=== PATIENT | female | born 1950 | race Caucasian/White ===

== ENCOUNTER 2016-04-26 13:19 | Emergency (ER) | payer MEDICARE, OTHER ==
[~2016-04-26] VITALS: Ht 175.3 cm; Wt 95.0 kg
[~2016-04-26 13:19] MED LIST: AMLO-147 PO; CALC500T12 PO; FURO20TA3 PO; GLIP-95 PO; HYDR-3671 PO; MTF1000T PO; SITA100T8 PO; VALS80TA2 PO
[2016-04-26 13:40] VITALS: Ht 175.3 cm; Wt 95.0 kg
[2016-04-26 20:03] LABS: HEMATOCRIT 35.1 % (37.0-47.0); HEMOGLOBIN 11.5 g/dl (12.0-16.0); MEAN CORPUSCULAR HEMOGLOBIN 29.5 pg (29.0-33.0); MEAN CORPUSCULAR HGB CONC 32.7 g/dl (32.0-37.0); MEAN CORPUSCULAR VOLUME 90.3 fl (82.0-101.0); PLATELET COUNT 265 10^3/UL (140-440); RED BLOOD COUNT 3.89 10^6/ul (4.20-5.40); RED CELL DISTRIBUTION WIDTH 15.2 % (11.5-14.5); UNCORRECTED WBC 7.3 10^3/ul (4.8-10.8); WHITE BLOOD COUNT 7.3 10^3/ul (4.8-10.8)
[2016-04-26 20:07] LABS: SUSPECT 1
[2016-04-26 20:08] LABS: CONDITION 1; LH ANALYZER COMMENTS 1
[2016-04-26 20:11] LABS: POTASSIUM 4.3 mmol/L (3.5-5.1)
[2016-04-26 20:13] LABS: INR 1.25; PARTIAL THROMBOPLASTIN TIME 28.1 Sec (25.0-35.0); PROTIME 15.8 Sec (12.2-14.2); PT RATIO 1.2
[2016-04-26 20:14] LABS: CREATININE 1.29 mg/dl (0.44-1.00)
[2016-04-26 20:15] LABS: CALCIUM 10.1 mg/dl (8.4-10.2)
--- NOTE | 2016-04-26 20:15 | RADRPT ---
PROCEDURE: XR Chest. CLINICAL INDICATION: Chest pain. TECHNIQUE: AP portable views of the chest were obtained. COMPARISON: All multiple prior exams including most recent 03/19/2016. FINDINGS: There is moderate cardiomegaly. There is a pacemaker in place with leads in the region of the right atrium right ventricle. There is mild atherosclerotic calcification of the thoracic aorta. There is mild prominence of the central pulmonary vasculature. The peripheral vascular markings are disti nct. The lungs are clear without consolidation, mass or nodule. No signs of pleural fluid or pneumot horax are seen. The osseous structures and soft tissues are unremarkable. IMPRESSION: 1. No evidence for active cardiopulmonary disease. 2. Moderate cardiomegaly with central pulmonary vascular congestion. No evidence of interstitial p ulmonary edema. 3. Mild atherosclerotic calcification of the thoracic aorta. RPTAT: HGAS .Emre Link MD, Date Time Electronically viewed and signed by .Emre Link MD, on 04/26/2016 20:14 .S/
[2016-04-26 20:27] LABS: TROPONIN-I 0.03 ng/ml (0.00-0.12)
[2016-04-26 20:28] LABS: ADD UMIC YES; URINE BILIRUBIN (Dip) 1+ (NEGATIVE); URINE BLOOD (Dip) NEGATIVE (NEGATIVE); URINE COLOR YELLOW (YELLOW); URINE KETONES (Dip) TRACE (NEGATIVE); URINE LEUKOCYTE ESTERASE (Dip) NEGATIVE (NEGATIVE); URINE NITRITE (Dip) NEGATIVE (NEGATIVE); URINE TOTAL PROTEIN (Dip) 2+ (NEGATIVE); URINE UROBILINOGEN (Dip) 0.2 E.U./dL (0.1-1.0)
[2016-04-26] MEDS ORDERED: FUROSEMIDE 40 MG INJ IV ONE (20:30)
[2016-04-26] MEDS ORDERED: INSULIN REGULAR, HUMAN 100 UNIT/1 ML 3ML VIAL SC ONE (20:30)
--- NOTE | 2016-04-26 20:35 | ERD ---
ER Documentation Chief Complaint Date/Time DATE: 04/26/16 TIME: 20:30 Chief Complaint HAS WEAKNESS AND DECREASED APPPETITE HAS ST HPI This is a 65-year-old female with a history of hypertension, CHF, pacemaker who presents to the emergency room for generalized weakness and decreased appetite for the past 3 days. The patient does state that although she has been able to do today's drink grape juice. Patient came to the ER for evaluation for her weakness. She denies any chest pain, palpitations, shortness of breath, nausea or vomiting at this time ROS All systems reviewed and are negative except as per history of present illness. Medications Home Meds Active Scripts Valsartan* (Diovan*) 80 Mg Tablet, 120 MG PO QHS for 30 Days, TAB 3 Refills take 1 and 1/2 tab po qhs Prov:TRACEY NEAL 03/21/16 Amlodipine Besylate* (Amlodipine Besylate*) 10 Mg Tablet, 10 MG PO DAILY for 30 Days, TAB 3 Refills Prov:TRACEY NEAL 03/21/16 Reported Medications Hydralazine Hcl* (Hydralazine Hcl*) 25 Mg Tab, 25 MG PO BID, #120 TAB 03/19/16 Furosemide* (Furosemide*) 20 Mg Tablet, 20 MG PO DAILY, #60 TAB 03/19/16 Sitagliptin* (Januvia*) 100 Mg Tablet, 100 MG PO DAILY, #30 TAB 10/13/15 Calcium Carbonate* (Oysco-500*) 1 Tab Tablet, 1 TAB PO BID, TAB 10/13/15 Metformin* (Glucophage*) 1,000 Mg Tablet, 1000 MG PO BID, #60 TAB 10/13/15 Glipizide* (Glipizide*) 10 Mg Tablet, 10 MG PO BID, TAB 10/13/15 Allergies Allergies: Coded Allergies: sulfamethoxazole (Verified Allergy, Mild, DIARRHEA,STOMACH PAIN, 03/19/16) trimethoprim (Verified Allergy, Mild, DIARRHEA,STOMACH PAIN, 03/19/16) PMhx/Soc History of Surgery: Yes (pls see EMR) Anesthesia Reaction: No Hx Neurological Disorder: No Hx Respiratory Disorders: No Hx Cardiac Disorders: Yes Hx Psychiatric Problems: No Hx Miscellaneous Medical Probl: Yes (pls see EMR) Hx Alcohol Use: No Hx Substance Use: No Hx Tobacco Use: No Smoking Status: Never smoker Physical Exam Vitals Vital Signs Date Time Temp Pulse Resp B/P Pulse Ox O2 Delivery O2 Flow Rate FiO2 04/26/16 19:59 Nasal Cannula 2 04/26/16 13:40 99.0 82 18 139/84 96 Physical Exam INITIAL VITAL SIGNS: Reviewed by me GENERAL: The patient is well developed and appropriate for usual state of health in no apparent distress HEENT: Pupils equal, round, and reactive to light. EOMI. There is no scleral icterus. NECK: C-spine is soft and supple, there is no meningismus. There is no cervical lymphadenopathy. LUNGS: Clear to auscultation bilaterally. There are no rales, wheezes or rhonchi. HEART: Pacemaker in left anterior chest wall, regular rate and rhythm, no murmurs, clicks, rubs or gallops. ABDOMEN: Soft, non-tender, non-distended. There are bowel sounds in all four quadrants. No rebound or guarding. EXTREMITIES: 1+ pitting edema in the bilateral lower extremities. NEUROLOGICAL: The patient moves all four extremities with 5/5 strength. Cranial nerves II - XII are intact. Normal gait. Alert and oriented SKIN: There is no apparent rash or petechiae. HEME/LYMPHATIC: There is no evidence of excessive bruising or lymphedema. PSYCHIATRIC: The patient does not appear anxious or depressed. Result Diagram: 04/26/16194704/26/161947 Results 24 hrs Laboratory Tests Test 04/26/16 13:51 04/26/16 19:48 Bedside Glucose 345mg/dL Activated Partial Thromboplast Time 28.1Sec Anion Gap 16 B-Type Natriuretic Peptide 77456BJ/ML Blood Morphology Comment Blood Urea Nitrogen 23mg/dl Calcium Level 10.1mg/dl Carbon Dioxide Level 28mmol/L Chloride Level 98mmol/L Creatinine 1.29mg/dl Glucose Level 254mg/dl Hematocrit 35.1% Hemoglobin 11.5g/dl INR International Normalized Ratio 1.25 Mean Corpuscular Hemoglobin 29.5pg Mean Corpuscular Hemoglobin Concent 32.7g/dl Mean Corpuscular Volume 90.3fl Mean Platelet Volume 10.0fl Platelet Count 57292^3/UL Potassium Level 4.3mmol/L Prothrombin Time 15.8Sec Prothrombin Time Ratio 1.2 Red Blood Count 3.8910^6/ul Red Cell Distribution Width 15.2% Sodium Level 138mmol/L Troponin I 0.030ng/ml White Blood Count 7.310^3/ul Current Medications Medications (Trade) Dose Ordered Sig/Jaspal Route PRN Reason Start Time Stop Time Status Last Admin Dose Admin Insulin Human Regular (Humulin R) 12 unit ONCE ONCE SC 04/26/16 20:30 04/26/16 20:30 DC Furosemide (Lasix) 40 mg ONCE ONCE IV 04/26/16 20:30 04/26/16 20:31 Procedures/MDM EKG: Rate/Rhythm: Paced QRS, ST, T-waves: [No changes consistent w/ acute ischemia] Impression: paced rhythm Chest X-ray 1V Interpreted by me: Soft Tissue: No acute abnormalities Bones: No acute abnormalities Mediastinum/Cardiac Silhouette/Lungs: Cardiomegaly with pulmonary vascular congestion This 65-year-old female presents to the ER for evaluation of generalized weakness. This patient states that she is not having any chest pain or palpitations, however she does have a history of hypertension, CHF with pacemaker placement. Lab work was obtained which does show an elevation in her brain natruretic peptide, this patient also has a slightly elevated glucose level which is likely secondary to the juice she has been drinking. She appears well-hydrated at this time, she did have 1+ pitting edema in the bilateral lower extremities and given her history of congestive heart failure with an elevated brain natruretic peptide this patient was given 40 mg of IV Lasix. She is hemodynamically stable at this time, not hypoxic, and has no respiratory distress. Her troponin is negative, and her EKG is nonischemic at this time. This patient is okay with plan of care being discharged home. She will be discharged home with a prescription for tramadol for back pain, and Lasix for acute CHF exacerbation. Departure Diagnosis: Primary Impression: CHF exacerbation Additional Impressions: Generalized weakness Chronic back pain Normocytic anemia Elevated brain natriuretic peptide (BNP) level Hyperglycemia Condition: Stable MAYA HAWLEY DO Apr 26, 2016 20:35
[2016-04-26] MEDS ORDERED: ULT50 PO (20:36)
[2016-04-26] MEDS ORDERED: FURO20TA PO (20:36)
[2016-04-26 20:42] LABS: BASOPHIL # 0.1 10^3/ul (0.0-0.1); EOSINOPHILS # 0.2 10^3/ul (0.0-0.5); LYMPHOCYTES # 0.7 10^3/ul (0.8-2.9); MONOCYTE # 0.5 10^3/ul (0.3-0.9); NEUTROPHIL # 5.8 10^3/ul (1.6-7.5)
[2016-04-26 20:47] LABS: URINE RBCS 0-2 /HPF (0)
[2016-04-26 20:48] LABS: BACTERIA,URINE FEW; ICTOTEST NEGATIVE (NEGATIVE); SQUAMOUS EPITHELIAL CELL,UR FEW
[2016-04-26 21:22] VITALS: BP 140/71; PULSE 79; RESP 20; TEMP 98.4
== END 2016-04-26 21:44 | disposition home or self-care (01) ==
LOC: E/R 13:19
DX: I50.9 Heart failure, unspecified (principal); R40.2252 Coma scale, best verbal response, oriented, at arrival to emergency department; M54.9 Dorsalgia, unspecified; D64.9 Anemia, unspecified; R73.9 Hyperglycemia, unspecified; I10 Essential (primary) hypertension; R40.2362 Coma scale, best motor response, obeys commands, at arrival to emergency department; R40.2142 Coma scale, eyes open, spontaneous, at arrival to emergency department; Z95.0 Presence of cardiac pacemaker; Z79.84 Long term (current) use of oral hypoglycemic drugs
CPT/HCPCS: 36415; 71010; 80048; 81001; 81003; 82962; 83880; 84484; 85025; 85610; 85730; 96374; 99285; J1940; 93005

== ENCOUNTER 2016-05-09 09:41 | Inpatient (IN) | payer OTHER, MEDICARE ==
[~2016-05-09] VITALS: Ht 160 cm; Wt 91.8 kg
[~2016-05-09 09:41] MED LIST changes: +FURO20TA PO; +ULT50 PO
--- NOTE | 2016-05-09 12:57 | ERA ---
ER Documentation Chief Complaint Date/Time DATE: 05/09/16 TIME: 12:56 Chief Complaint COUGH X1 MONTH, DIZZINESS, BODYACHES, WEAKNESS X2 MONTHS, NO JACKSON HPI The patient is a 47-year-old male, presenting to the ER because of acute low back pain 6 years ago after lifting heavy glass. The pain is 5-10, worse with movement. He denies fecal, urinary incontinence, fever, chills, neck pain, chest pain, abdominal pain, vomiting, dysuria. He does not smoke, drinks socially Past medical history: Hypertension Past surgical history: None ROS All systems reviewed and are negative except as per history of present illness. Medications Home Meds Active Scripts Tramadol HCl (Tramadol HCl) 50 Mg Tablet, 50 MG PO Q8, #12 TAB Prov:MAYA HAWLEY DO 04/26/16 Furosemide* (Lasix*) 20 Mg Tablet, 20 MG PO DAILY, #5 TAB Prov:MAYA HAWLEY DO 04/26/16 Valsartan* (Diovan*) 80 Mg Tablet, 120 MG PO QHS for 30 Days, TAB 3 Refills take 1 and 1/2 tab po qhs Prov:VALTRACEY 03/21/16 Amlodipine Besylate* (Amlodipine Besylate*) 10 Mg Tablet, 10 MG PO DAILY for 30 Days, TAB 3 Refills Prov:VALTRACEY 03/21/16 Reported Medications Hydralazine Hcl* (Hydralazine Hcl*) 25 Mg Tab, 25 MG PO BID, #120 TAB 03/19/16 Furosemide* (Furosemide*) 20 Mg Tablet, 20 MG PO DAILY, #60 TAB 03/19/16 Sitagliptin* (Januvia*) 100 Mg Tablet, 100 MG PO DAILY, #30 TAB 10/13/15 Calcium Carbonate* (Oysco-500*) 1 Tab Tablet, 1 TAB PO BID, TAB 10/13/15 Metformin* (Glucophage*) 1,000 Mg Tablet, 1000 MG PO BID, #60 TAB 10/13/15 Glipizide* (Glipizide*) 10 Mg Tablet, 10 MG PO BID, TAB 10/13/15 Allergies Allergies: Coded Allergies: sulfamethoxazole (Verified Allergy, Mild, DIARRHEA,STOMACH PAIN, 03/19/16) trimethoprim (Verified Allergy, Mild, DIARRHEA,STOMACH PAIN, 03/19/16) PMhx/Soc History of Surgery: Yes (pls see EMR) Anesthesia Reaction: No Hx Neurological Disorder: No Hx Respiratory Disorders: No Hx Cardiac Disorders: Yes Hx Psychiatric Problems: No Hx Miscellaneous Medical Probl: Yes (pls see EMR) Hx Alcohol Use: No Hx Substance Use: No Hx Tobacco Use: No Physical Exam Vitals Vital Signs Date Time Temp Pulse Resp B/P Pulse Ox O2 Delivery O2 Flow Rate FiO2 05/09/16 13:25 77 20 97 21 05/09/16 09:48 97.8 78 17 119/77 99 Physical Exam Const: No acute distress. Head: Atraumatic. Eyes: Normal Conjunctiva. ENT: Normal External Ears, Nose and Mouth. Neck: Full range of motion. No meningismus. Resp: Clear to auscultation bilaterally. Cardio: Regular rate and rhythm, no murmurs. Abd: Soft, non distended, normal bowel sounds, non tender. Skin: No petechiae or rashes. Back: No midline tenderness, my left sided lumbar tenderness, no crepitus Ext: No cyanosis, or edema. Neur: Awake and alert. No focal deficit Psych: Normal Mood and Affect. Results 24 hrs Current Medications Medications (Trade) Dose Ordered Sig/Jaspal Route PRN Reason Start Time Stop Time Status Last Admin Dose Admin Levalbuterol (Xopenex Neb) 1.25 mg ONCE ONCE HHN 05/09/16 13:30 05/09/16 13:31 05/09/16 13:22 Procedures/MDM MEDICAL MAKING DECISION: The patient is 47-year-old male, presenting with acute lumbar strain. He was treated with Toradol 60 mg IM with good response. The differential diagnoses considered include but are not limited to caudal equina syndrome, spinal abscess, DJD, diskitis, lumbar radiculopathy. Departure Diagnosis: Primary Impression: Acute back pain Condition: Good Comments He was discharged with Eric Tao Soma I discussed the findings with the patient. I advised the patient to follow-up with the primary physician in about 1-2 days, sooner if needed and return if any concern. JORGE LUIS SALEH MD May 09, 2016 12:57
--- NOTE | 2016-05-09 13:23 | RADRPT ---
PROCEDURE: Chest Radiograph. CLINICAL INDICATION: Shortness of breath TECHNIQUE: Single frontal chest radiograph. COMPARISON: Chest radiograph 04/26/2016 FINDINGS: The patient is rotated. Heart size is poorly evaluated. A left chest wall implantable pacer is in place. There is mild central vascular congestion. No infiltrate or effusion is seen. The bones are intact. IMPRESSION: 1. Mild cardiomegaly and central vascular congestion. 2. Atherosclerotic vascular disease. RPTAT: KK .Torres Michaels MD, Date Time Electronically viewed and signed by .Torres Michaels MD, on 05/09/2016 13:22 .B/
[2016-05-09] MEDS ORDERED: LEVALBUTEROL (NEB) 1.25 MG/0.5 ML AMP HHN ONE (13:30)
[2016-05-09 13:50] LABS: BASOPHILS % 0.3 % (0.0-2.0); EOSINOPHILS # 0.1 10^3/ul (0.0-0.5); EOSINOPHILS % 0.6 % (0.0-7.0); HEMATOCRIT 36.7 % (37.0-47.0); HEMOGLOBIN 11.8 g/dl (12.0-16.0); LYMPHOCYTES # 1.5 10^3/ul (0.8-2.9); LYMPHOCYTES % 17.2 % (15.0-51.0); MEAN CORPUSCULAR HEMOGLOBIN 28.8 pg (29.0-33.0); MEAN CORPUSCULAR VOLUME 90.1 fl (82.0-101.0); MEAN PLATELET VOLUME 9.2 fl (7.4-10.4); MONOCYTE # 0.7 10^3/ul (0.3-0.9); MONOCYTES % 7.6 % (0.0-11.0); NEUTROPHIL # 6.5 10^3/ul (1.6-7.5); NEUTROPHILS % 74.3 % (39.0-77.0); PLATELET COUNT 281 10^3/UL (140-440); RED BLOOD COUNT 4.07 10^6/ul (4.20-5.40); UNCORRECTED WBC 8.8 10^3/ul (4.8-10.8); WHITE BLOOD COUNT 8.8 10^3/ul (4.8-10.8)
[2016-05-09 13:58] LABS: POTASSIUM 4.6 mmol/L (3.5-5.1)
[2016-05-09 14:00] LABS: ALBUMIN/GLOBULIN RATIO 1.25; BILIRUBIN,INDIRECT 0.6 mg/dl (0-1.1); BILIRUBIN,TOTAL 0.6 mg/dl (0.2-1.3); CONDITION 1; CREATININE 1.21 mg/dl (0.44-1.00); LH ANALYZER COMMENTS 1; TOTAL PROTEIN 7.2 g/dl (6.1-8.1)
[2016-05-09 14:01] LABS: CALCIUM 9.8 mg/dl (8.4-10.2)
[2016-05-09] MEDS ORDERED: FUROSEMIDE 40 MG INJ IV ONE (14:30)
--- NOTE | 2016-05-09 15:39 | ERA ---
ER Documentation Chief Complaint Date/Time DATE: 05/09/16 TIME: 15:37 Chief Complaint COUGH X1 MONTH, DIZZINESS, BODYACHES, WEAKNESS X2 MONTHS, NO JACKSON HPI The patient is a 65-year-old female, presenting to the ER because of intermittent cough, nasal congestion, dizziness, general body pain for more than a month and complains of generalized weakness for the last 2 weeks. She was seen in the ER about 2 weeks ago and treated with Lasix for acute CHF exacerbation and discharged. She has not gotten any better. She complains of dyspnea on exertion, denies chest pain, diaphoresis, complains of chronic and vague abdominal pain, denied dysuria, diarrhea. She does not smoke, drink Past medical history: Hypertension, diabetes mellitus,, dyslipidemia, history of CHF, chronic kidney disease, cardiomyopathy Past surgical history: Hysterectomy, AICD ROS All systems reviewed and are negative except as per history of present illness. Medications Home Meds Active Scripts Valsartan* (Diovan*) 80 Mg Tablet, 120 MG PO QHS for 30 Days, TAB 3 Refills take 1 and 1/2 tab po qhs Prov:TRACEY NEAL 03/21/16 Amlodipine Besylate* (Amlodipine Besylate*) 10 Mg Tablet, 10 MG PO DAILY for 30 Days, TAB 3 Refills Prov:TRACEY NEAL 03/21/16 Reported Medications Hydralazine Hcl* (Hydralazine Hcl*) 25 Mg Tab, 25 MG PO TID, #120 TAB 03/19/16 Furosemide* (Furosemide*) 20 Mg Tablet, 20 MG PO DAILY, #60 TAB 03/19/16 Sitagliptin* (Januvia*) 100 Mg Tablet, 100 MG PO DAILY, #30 TAB 10/13/15 Calcium Carbonate* (Oysco-500*) 1 Tab Tablet, 1 TAB PO BID, TAB 10/13/15 Metformin* (Glucophage*) 1,000 Mg Tablet, 1000 MG PO BID, #60 TAB 10/13/15 Glipizide* (Glipizide*) 10 Mg Tablet, 10 MG PO BID, TAB 10/13/15 Discontinued Scripts Tramadol HCl (Tramadol HCl) 50 Mg Tablet, 50 MG PO Q8, #12 TAB Prov:MAYA HAWLEY DO 04/26/16 Furosemide* (Lasix*) 20 Mg Tablet, 20 MG PO DAILY, #5 TAB Prov:MAYA HAWLEY DO 04/26/16 Allergies Allergies: Coded Allergies: sulfamethoxazole (Verified Allergy, Mild, DIARRHEA,STOMACH PAIN, 05/09/16) trimethoprim (Verified Allergy, Mild, DIARRHEA,STOMACH PAIN, 05/09/16) PMhx/Soc History of Surgery: Yes (pls see EMR) Anesthesia Reaction: No Hx Neurological Disorder: No Hx Respiratory Disorders: No Hx Cardiac Disorders: Yes Hx Psychiatric Problems: No Hx Miscellaneous Medical Probl: Yes (pls see EMR) Hx Alcohol Use: No Hx Substance Use: No Hx Tobacco Use: No Physical Exam Vitals Vital Signs Date Time Temp Pulse Resp B/P Pulse Ox O2 Delivery O2 Flow Rate FiO2 05/09/16 13:25 77 20 97 21 05/09/16 09:48 97.8 78 17 119/77 99 Physical Exam Const: No acute distress. Head: Atraumatic. Eyes: Normal Conjunctiva. ENT: Normal External Ears, Nose and Mouth. Neck: Full range of motion. No meningismus. Resp: Mild bilateral expiratory wheezes Cardio: Regular rate and rhythm, no murmurs. Abd: Soft, non distended, normal bowel sounds, non tender. Skin: No petechiae or rashes. Back: No midline or flank tenderness. Ext: No cyanosis, or edema. Neur: Awake and alert. No focal deficit Psych: Normal Mood and Affect. Result Diagram: 05/09/16 1330 05/09/16 1330 Results 24 hrs Laboratory Tests Test 05/09/16 13:30 Alanine Aminotransferase (ALT/SGPT) 83IU/L Albumin 4.0g/dl Albumin/Globulin Ratio 1.25 Alkaline Phosphatase 145IU/L Anion Gap 19 Aspartate Amino Transf (AST/SGOT) 37IU/L B-Type Natriuretic Peptide 92182KM/ML Basophils # 0.010^3/ul Basophils % 0.3% Blood Morphology Comment Blood Urea Nitrogen 26mg/dl Calcium Level 9.8mg/dl Carbon Dioxide Level 25mmol/L Chloride Level 97mmol/L Creatinine 1.21mg/dl Direct Bilirubin 0.00mg/dl Eosinophils # 0.110^3/ul Eosinophils % 0.6% Globulin 3.20g/dl Glucose Level 225mg/dl Hematocrit 36.7% Hemoglobin 11.8g/dl Indirect Bilirubin 0.6mg/dl Lipase 162U/L Lymphocytes # 1.510^3/ul Lymphocytes % 17.2% Mean Corpuscular Hemoglobin 28.8pg Mean Corpuscular Hemoglobin Concent 32.0g/dl Mean Corpuscular Volume 90.1fl Mean Platelet Volume 9.2fl Monocytes # 0.710^3/ul Monocytes % 7.6% Neutrophils # 6.510^3/ul Neutrophils % 74.3% Nucleated Red Blood Cells # 0.010^3/ul Nucleated Red Blood Cells % 0.0/100WBC Platelet Count 21882^3/UL Potassium Level 4.6mmol/L Red Blood Count 4.0710^6/ul Red Cell Distribution Width 16.0% Sodium Level 136mmol/L Total Bilirubin 0.6mg/dl Total Protein 7.2g/dl White Blood Count 8.810^3/ul Current Medications Medications (Trade) Dose Ordered Sig/Jaspal Route PRN Reason Start Time Stop Time Status Last Admin Dose Admin Levalbuterol (Xopenex Neb) 1.25 mg ONCE ONCE HHN 05/09/16 13:30 05/09/16 13:31 DC 05/09/16 13:22 Furosemide (Lasix) 40 mg ONCE ONCE IV 05/09/16 14:30 05/09/16 14:31 DC Procedures/MDM EKG: Read by emergency physician Rate/Rhythm: Normal Sinus Rhythm beats per min QRS, ST, T-waves: No ST elevation, no T wave inversion Impression: Abnormal EKG [place] [id number] Radiology Main Line: [phone] DIAGNOSTIC IMAGING REPORT Patient: ART HEATH : 1950 Age: 65 Sex: F MR #: [id number] DOS: 05/09/16 1301 Ordering MD: JORGE LUIS SALEH MD Location: E/R Room/Bed: PROCEDURE: Chest Radiograph. CLINICAL INDICATION: Shortness of breath TECHNIQUE: Single frontal chest radiograph. COMPARISON: Chest radiograph 04/26/2016 FINDINGS: The patient is rotated. Heart size is poorly evaluated. A left chest wall implantable pacer is in place. There is mild central vascular congestion. No infiltrate or effusion is seen. The bones are intact. IMPRESSION: 1. Mild cardiomegaly and central vascular congestion. 2. Atherosclerotic vascular disease. RPTAT: KK .Torres Michaels MD, Date Time Electronically viewed and signed by .Torres Michaels MD, on 2016 13:22 .B/ CC: JORGE LUIS SALEH MD MEDICAL MAKING DECISION: The patient is a 74-year-old female, presenting with acute CHF exacerbation, she was treated with Xopenex 1.25 mg for wheezing and Lasix 40 mg IV for acute CHF with good response. The differential diagnoses considered include but are not limited to asthma, COPD, pneumonia, pulmonary embolus, pleural effusion, congestive heart failure. Departure Diagnosis: Primary Impression: CHF (congestive heart failure) Additional Impressions: Anemia Abnormal LFTs Condition: Stable Comments I discussed the findings with the patient. I discussed the patient with his physician Dr. Evans who was made aware of the lab, the treatment, the patient condition. The patient is admitted to telemetry at 3:45 PM JORGE LUIS SALEH MD May 09, 2016 15:39
[2016-05-09 16:25] LABS: URINE BLOOD (Dip) POC Negative (NEGATIVE)
[2016-05-09] MEDS ORDERED: MAGNESIUM HYDROXIDE 30ML CUP PO PRN (18:30)
[2016-05-09] MEDS ORDERED: HYDROCODONE/APAP (5/325) TAB PO PRN (18:30)
[2016-05-09] MEDS ORDERED: DOCUSATE SODIUM 100 MG CAP PO PRN (18:30)
[2016-05-09] MEDS ORDERED: NACL 0.9% 3 ML SYG IV SCH (18:30)
[2016-05-09] MEDS ORDERED: GLUCOSE GEL 15 GRAM TUBE PO PRN ×2 (19:00)
[2016-05-09] MEDS ORDERED: DEXTROSE 50% 50 ML SYRINGE IV PRN ×2 (19:00)
[2016-05-09] MEDS ORDERED: GLUCOSE GEL 15 GRAM TUBE BUCCAL PRN (19:00)
[2016-05-09] MEDS ORDERED: GLUCAGON 1 MG INJ IM PRN (19:00)
--- NOTE | 2016-05-09 19:05 | QN ---
Documentation Comment [id number] LUCAS SANTIAGO MD May 09, 2016 19:05
[2016-05-09 19:15] LABS: CK-MB 0.7 ng/ml (0.0-2.4)
[2016-05-09 19:18] LABS: TROPONIN-I 0.017 ng/ml (0.00-0.12)
[2016-05-09] MEDS: VALSARTAN 80 MG TAB PO SCH (20:48)
[2016-05-09] MEDS: CALCIUM CARBONATE 1.25 GM TAB PO SCH (20:49)
[2016-05-09] MEDS ORDERED: glipiZIDE 10 MG TAB PO SCH (21:00)
[2016-05-09] MEDS: INSULIN ASPART [NOVOLOG] 3 ML PEN SC SCH (21:03)
[2016-05-10 01:04] LABS: CK-MB 0.7 ng/ml (0.0-2.4)
[2016-05-10 01:07] LABS: TROPONIN-I 0.024 ng/ml (0.00-0.12)
[2016-05-10] MEDS: INSULIN ASPART [NOVOLOG] 3 ML PEN SC SCH ×4 (01:49→20:43)
[2016-05-10] MEDS: ACCUCHECK AT 2AM (Patients on SS coverage) XX SCH (01:52)
[2016-05-10 02:00] VITALS: TEMP 98.6
--- NOTE | 2016-05-10 03:45 | HP ---
DATE OF ADMISSION: 05/09/2016 HISTORY OF PRESENT ILLNESS: The patient is a 65-year-old female with history of CKD, hypertension, diabetes mellitus, history of congestive heart failure, cardiomyopathy with systolic heart dysfuncti on, dyslipidemia. The patient also has a history of atherosclerotic heart disease and history of Le xiscan showing no Lexiscan ST or T-wave changes. The patient's other history includes history of ab normal LFTs in the past. PAST SURGICAL HISTORY: The patient has a history of AICD device placement. ALLERGIES: SULFAMETHOXAZOLE AND TRIMETHOPRIM. SOCIAL HISTORY: Negative. FAMILY HISTORY: Negative. CURRENT MEDICATIONS: The patient is on 1. Amlodipine. 2. Calcium carbonate. 3. Lasix. 4. Glipizide. 5. Hydralazine. 6. Metformin. 7. Januvia. 8. Diovan. REVIEW OF SYSTEMS: HEENT: Unremarkable. RESPIRATORY: Short of breath, cough. CARDIOVASCULAR: No chest pain, palpitation. ABDOMEN: Unremarkable. EXTREMITIES: On an off edema. PHYSICAL EXAMINATION: GENERAL: The patient is an overweight female, awake, alert. VITAL SIGNS: Pulse 83, blood pressure 136/70. HEENT: Atraumatic, normocephalic. Pupils are equal, reactive to light. NECK: Supple. No JVD. CHEST: Show the patient has cardiomegaly with central vascular congestion. ABDOMEN: Bowel sounds present. No palpable mass or hepatosplenomegaly. EXTREMITIES: No cyanosis or clubbing. Edema positive. LABORATORY DATA: WBC 8.8, hematocrit 36.7, platelet count of 281. Sodium 136, potassium 4.6, BUN 2 6, creatinine 1.21, glucose 225. BNP was 13,400, alkaline phosphatase 145. The patient's rhythm on the monitor shows normal sinus rhythm. The patient's EKG . IMPRESSION: 1. Pulmonary edema. 2. Hypertension. 3. Diabetes mellitus. 4. Chronic kidney disease. 5. 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 6. The patient also has possible underlying systemic inflammatory response syndrome. PLAN: Admit this patient to tele. Oxygen. The patient will have aspirin. Continue home medicatio ns, sliding scale diuretics. Cardiology consultation. A 2D echo at the discretion of the cardiolog ist since the patient follows with them as an outpatient. Sliding scale has been enforced. Dictated By: LUCAS RODRIGUEZ/JONY Conf#: [id number] DID#: [id number]
[2016-05-10] MEDS: PANTOPRAZOLE 40 MG INJ IV SCH (05:58)
[2016-05-10 06:24] LABS: ALBUMIN 3.6 g/dl (3.3-4.9)
[2016-05-10 06:25] LABS: POTASSIUM 3.8 mmol/L (3.5-5.1)
[2016-05-10 06:26] LABS: BASOPHILS % 0.4 % (0.0-2.0); EOSINOPHILS # 0.1 10^3/ul (0.0-0.5); EOSINOPHILS % 1.4 % (0.0-7.0); HEMATOCRIT 36.2 % (37.0-47.0); HEMOGLOBIN 11.6 g/dl (12.0-16.0); LYMPHOCYTES # 1.6 10^3/ul (0.8-2.9); LYMPHOCYTES % 22.9 % (15.0-51.0); MEAN CORPUSCULAR HEMOGLOBIN 29.1 pg (29.0-33.0); MEAN PLATELET VOLUME 9.6 fl (7.4-10.4); MONOCYTE # 0.7 10^3/ul (0.3-0.9); MONOCYTES % 9.2 % (0.0-11.0); NEUTROPHIL # 4.7 10^3/ul (1.6-7.5); NEUTROPHILS % 66.1 % (39.0-77.0); PLATELET COUNT 279 10^3/UL (140-440); RED BLOOD COUNT 3.98 10^6/ul (4.20-5.40); RED CELL DISTRIBUTION WIDTH 15.4 % (11.5-14.5); UNCORRECTED WBC 7.2 10^3/ul (4.8-10.8); WHITE BLOOD COUNT 7.2 10^3/ul (4.8-10.8)
[2016-05-10 06:27] LABS: ALBUMIN/GLOBULIN RATIO 1.16; BILIRUBIN,INDIRECT 0.5 mg/dl (0-1.1); BILIRUBIN,TOTAL 0.5 mg/dl (0.2-1.3); CREATININE 1.26 mg/dl (0.44-1.00); TOTAL PROTEIN 6.7 g/dl (6.1-8.1)
[2016-05-10 06:28] LABS: CALCIUM 9.8 mg/dl (8.4-10.2)
[2016-05-10 06:40] LABS: CONDITION 1; LH ANALYZER COMMENTS 1
[2016-05-10] MEDS: FUROSEMIDE 40 MG INJ IV SCH (09:02)
[2016-05-10] MEDS: ASPIRIN 81 MG TAB PO SCH (09:03)
[2016-05-10] MEDS: AMLODIPINE 10 MG TAB PO SCH (09:03)
[2016-05-10] MEDS: CALCIUM CARBONATE 1.25 GM TAB PO SCH ×2 (09:03→20:42)
[2016-05-10] MEDS: metFORMIN 500 MG TAB PO SCH ×2 (09:03→17:30)
[2016-05-10 16:00] VITALS: BP 165/78; PULSE 72; RESP 16; Ht 160 cm; Wt 91.8 kg
--- NOTE | 2016-05-10 16:06 | PN ---
Date/Time of Note Date/Time of Note DATE: 05/10/16 TIME: 16:05 Assessment/Plan VTE Prophylaxis VTE Prophylaxis Intervention: other Lines/Catheters Urinary Cath still in place: No Assessment/Plan Chief Complaint/Hosp Course IMPRESSION: 1. Pulmonary edema. 2. Hypertension. 3. Diabetes mellitus. 4. Chronic kidney disease. 5. 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 6. The patient also has possible underlying systemic inflammatory response syndrome. plan continue same Problems: Subjective 24 Hr Interval Summary Respiratory: shortness of breath (+) Gastrointestinal: no complaints Exam/Review of Systems Vital Signs Vitals Vital Signs Date Time Temp Pulse Resp B/P Pulse Ox O2 Delivery O2 Flow Rate FiO2 05/10/16 15:21 69 18 216/111 95 05/10/16 11:33 Room Air 05/10/16 02:00 98.6 05/09/16 13:25 21 Intake and Output 05/09/16 05/09/16 05/10/16 15:00 23:00 07:00 Output Total 1700 ml 1500 ml Balance -1700 ml -1500 ml Exam Neck: supple Respiratory: diminished breath sounds Cardiovascular: regular rate and rhythm Gastrointestinal: soft Musculoskeletal: nl extremities to inspection Results Result Diagram: 05/10/16 0525 05/10/16 0525 Results 24 hrs Laboratory Tests Test 05/09/16 16:24 05/09/16 18:20 05/09/16 20:45 05/10/16 00:25 Bedside Urine Blood Negative Bedside Urine Glucose (UA) Negative Bedside Urine Ketones (LAB) Negative Bedside Urine Leukocyte Esterase (L Negative Bedside Urine Nitrite (LAB) Negative Bedside Urine Protein (LAB) 1+ H Bedside Urine pH (LAB) 5.5 Creatine Kinase 28 24 Creatine Kinase Index 2.5 2.9 Creatinine Kinase MB (Mass) 0.70 0.70 Troponin I 0.017 0.024 Bedside Glucose 227 H Test 05/10/16 01:45 05/10/16 05:25 05/10/16 13:19 Bedside Glucose 230 H 255 H Alanine Aminotransferase (ALT/SGPT) 69 Albumin 3.6 Albumin/Globulin Ratio 1.16 Alkaline Phosphatase 103 Anion Gap 14 Aspartate Amino Transf (AST/SGOT) 26 Basophils # 0.0 Basophils % 0.4 Blood Morphology Comment Blood Urea Nitrogen 27 H Calcium Level 9.8 Carbon Dioxide Level 28 Chloride Level 102 Creatinine 1.26 H Direct Bilirubin 0.00 Eosinophils # 0.1 Eosinophils % 1.4 Globulin 3.10 Glucose Level 120 # Hematocrit 36.2 L Hemoglobin 11.6 L Hemoglobin A1c 10.8 H Indirect Bilirubin 0.5 Lymphocytes # 1.6 Lymphocytes % 22.9 Mean Corpuscular Hemoglobin 29.1 Mean Corpuscular Hemoglobin Concent 32.0 Mean Corpuscular Volume 91.0 Mean Platelet Volume 9.6 Monocytes # 0.7 Monocytes % 9.2 Neutrophils # 4.7 Neutrophils % 66.1 Nucleated Red Blood Cells # 0.0 Nucleated Red Blood Cells % 0.0 Platelet Count 279 Potassium Level 3.8 Red Blood Count 3.98 L Red Cell Distribution Width 15.4 H Sodium Level 140 Total Bilirubin 0.5 Total Protein 6.7 White Blood Count 7.2 Medications Medications Current Medications Amlodipine Besylate (Norvasc) 10 mg DAILY PO Last administered on 05/10/16 09: 03; Admin Dose 10 MG; Start 05/10/16 at 09:00 Calcium Carbonate (Oyster Shell Calcium) 1.25 gm BID PO Last administered on 09:03; Admin Dose 1.25 GM; Start 05/09/16 at 21:00 Hydralazine HCl (Apresoline) 25 mg TID PO Last administered on 05/10/16 15:21 ; Admin Dose 25 MG; Start 05/09/16 at 21:00 Valsartan (Diovan) 120 mg QHS PO Last administered on 05/09/16 20:48; Admin Dose 120 MG; Start 05/09/16 at 21:00 Acetaminophen/ Hydrocodone Bitart ([place] (5/325)) 1 tab Q6H PRN PO MODERATE PAIN LEVEL 4-6; Start 05/09/16 at 18:30 Docusate Sodium (Colace) 100 mg Q12H PRN PO CONSTIPATION; Start 05/09/16 at 18: 30 Magnesium Hydroxide (Milk Of Mag) 30 ml DAILY PRN PO CONSTIPATION; Start at 18:30 Pantoprazole (Protonix Iv) 40 mg DAILY@06 IV Last administered on 05/10/16 05: 58; Admin Dose 40 MG; Start 05/10/16 at 06:00 Furosemide (Lasix) 40 mg DAILY IV Last administered on 05/10/16 09:02; Admin Dose 40 MG; Start 05/10/16 at 09:00 Miscellaneous Information 1 ea NOTE XX ; Start 05/09/16 at 19:00 Glucose (Glutose) 15 gm Q15M PRN PO DECREASED GLUCOSE; Start 05/09/16 at 19:00 Glucose (Glutose) 22.5 gm Q15M PRN PO DECREASED GLUCOSE; Start 05/09/16 at 19: 00 Dextrose (D50w Syringe) 25 ml Q15M PRN IV DECREASED GLUCOSE; Start 05/09/16 at 19:00 Dextrose (D50w Syringe) 50 ml Q15M PRN IV DECREASED GLUCOSE; Start 05/09/16 at 19:00 Glucagon (Glucagen) 1 mg Q15M PRN IM DECREASED GLUCOSE; Start 05/09/16 at 19:00 Glucose (Glutose) 15 gm Q15M PRN BUCCAL DECREASED GLUCOSE; Start 05/09/16 at 19 :00 Aspirin (Aspirin) 81 mg DAILY PO Last administered on 05/10/16 09:03; Admin Dose 81 MG; Start 05/10/16 at 09:00 Diagnostic Test (Pha) (Accucheck) 1 ea 02 XX Last administered on 05/10/16 01: 52; Admin Dose 1 EA; Start 05/10/16 at 02:00 LUCAS SANTIAGO MD May 10, 2016 16:06
[2016-05-10 17:01] VITALS: PULSE 70
[2016-05-10] MEDS ORDERED: hydrALAzine 20 MG INJ IV PRN (18:30)
[2016-05-10 20:37] VITALS: BP 134/59; PULSE 70; RESP 20
[2016-05-10] MEDS: VALSARTAN 80 MG TAB PO SCH (20:42)
[2016-05-11] VITALS (10 sets, daily range): BP systolic 124–158; BP diastolic 61–72; PULSE 70–74; RESP 17–18
[2016-05-11] MEDS: ACCUCHECK AT 2AM (Patients on SS coverage) XX SCH (02:00)
[2016-05-11] MEDS: PANTOPRAZOLE 40 MG INJ IV SCH (05:53)
[2016-05-11] MEDS: INSULIN ASPART [NOVOLOG] 3 ML PEN SC SCH ×4 (08:41→21:10)
[2016-05-11] MEDS: FUROSEMIDE 40 MG INJ IV SCH (08:42)
[2016-05-11] MEDS: CALCIUM CARBONATE 1.25 GM TAB PO SCH ×2 (08:43→21:08)
[2016-05-11] MEDS: AMLODIPINE 10 MG TAB PO SCH (08:43)
[2016-05-11] MEDS: ASPIRIN 81 MG TAB PO SCH (08:43)
[2016-05-11] MEDS: metFORMIN 500 MG TAB PO SCH ×2 (08:44→17:46)
--- NOTE | 2016-05-11 16:02 | CONS ---
DATE OF ADMISSION: 05/09/2016 DATE OF CONSULTATION: 05/11/2016 REASON FOR CONSULTATION: Shortness of breath and congestive heart failure. REQUESTING PHYSICIAN: LUCAS SANTIAGO MD. HISTORY OF PRESENT ILLNESS: Ms. Arias is a 65-year-old female with a history of cardiomyopathy wit h mildly depressed left ventricular ejection fraction, approximately 40% to 45% by echo in 04/2015 w ith a stress in September 2015 revealing an EF of 43%, but no ischemia, permanent pacemaker, hypertension , diabetes mellitus, recurrent bouts of congestive heart failure who presented with complaints of sh ortness of breath. Upon arrival in the emergency department, temperature 97.8, blood pressure 119/7 7, pulse 78, respirations 17, saturating 99%. The patient's labs, a white count of 8.8, hemoglobin 11.8, platelet count 281. Sodium of 136, potas sium 4.6, creatinine 1.2, BUN 26, AST 37, ALT 83, alkaline phosphatase 145. BNP of 13,400. Troponi n negative. UA negative. The patient underwent a chest x-ray revealing mild cardiomegaly and centr al vascular congestion and atherosclerotic vascular disease. The patient's electrocardiogram is not in the chart for my review at this time. The patient has subsequently been admitted to the floor a nd since admit to the floor, has ongoing shortness breath, denies chest pain. Had a second troponin return negative. The patient has been placed on gentle daily Lasix diuresis and baseline antihyper tensives. PAST MEDICAL HISTORY: As above in HPI with an echo from February 2016 revealing EF of 40%. MEDICATIONS CURRENTLY IN HOSPITAL 1. Norvasc 10 mg daily. 2. Lasix 40 mg IV daily. 3. Aspirin 81 mg daily. 4. Metformin 1000 mg b.i.d. 5. Protonix 40 mg IV daily. 6. Calcium carbonate. 7. Hydralazine 25 mg p.o. t.i.d. 8. Diovan 120 mg at bedtime. 9. Insulin sliding scale. ALLERGIES: BACTRIM. SOCIAL HISTORY: No tobacco, ETOH or illicit drug use. FAMILY HISTORY: Negative for sudden cardiac or early CAD. REVIEW OF SYSTEMS: As above in HPI. CONSTITUTIONAL: No fevers, chills. PULMONARY: Positive for shortness of breath. CARDIOVASCULAR: Heart failure. GASTROINTESTINAL: No vomiting. GENITOURINARY: No hematuria. MUSCULOSKELETAL: Degenerative joint disease. PSYCHIATRIC: No documented psychiatric history. NEUROLOGIC: No documented history of CVA. PHYSICAL EXAMINATION VITAL SIGNS: Temperature 98.2, blood pressure 124/64, pulse 70, respirations 17, saturating 92%. GENERAL: The patient is alert, awake, complaining of shortness of breath. NECK: JVP approximately 9 cm of water. CHEST: Fair movement throughout, mild decreased breath sounds at bases bilaterally. HEART: Regular rate and rhythm, normal S1, S2. A 1/6 systolic murmur, nondisplaced PMI. ABDOMEN: Positive bowel sounds, soft. EXTREMITIES: Trace edema, 1+ pulses bilaterally, posterior tibial. LABORATORIES: As above in HPI with most recent from today, white count 7.2, hemoglobin 11.6, platel et count 279. Sodium 140, potassium 3.8, creatinine of 1.26, BUN 17. IMAGING STUDIES: As above in HPI. No further imaging studies for my review at this time. ECG: No electrocardiograms for my review at this time. IMPRESSION: 1. Congestive heart failure exacerbation, systolic, acute on chronic. Most recent EF of 40% by [facility] in February 2016. 2. Shortness of breath secondary to #1. 3. Hypertension, under reasonable control. 4. Diabetes mellitus. 5. Renal failure. 6. Permanent pacemaker. 7. Anemia. RECOMMENDATIONS: 1. At this time, would maintain patient on telemetry monitoring to follow rhythm and rate control c losely. 2. Complete the patient's rule out for myocardial infarction to ensure the patient's constellation of symptoms are not due to an acute coronary syndrome such as acute myocardial infarction. 3. Continue the patient's Hydralazine, Diovan and Norvasc for control of blood pressure and continu e the patient's aspirin for prophylaxis for cardiovascular events. 6. Continue the patient's gentle Lasix diuresis, following strict I's and O's to grade diuresis, fo llowing creatinine closely. 7. We will follow the patient's pacemaker on telemetry and if there is any sign of dysfunction, we will have the permanent pacemaker interrogated. 8. Check a fasting lipid panel for general risk stratification and initiate lipid-lowering medicati on as necessary. Thank you for allowing me to take part in the care of this patient. I will continue to follow along very closely with you with further recommendations to be made as the patient progresses through her inpatient hospital clinical course. Dictated By: DELFINA EWING/JONY Conf#: [id number] DID#: [id number] CC: LUCAS SANTIAGO MD;*EndCC*
[2016-05-11 19:05] LABS: CK-MB 0.64 ng/ml (0.0-2.4)
[2016-05-11 19:09] LABS: TROPONIN-I 0.013 ng/ml (0.00-0.12)
--- NOTE | 2016-05-11 19:41 | PN ---
Date/Time of Note Date/Time of Note DATE: 05/11/16 TIME: 19:40 Assessment/Plan VTE Prophylaxis VTE Prophylaxis Intervention: other Lines/Catheters IV Catheter Type (from [facility]): Saline Lock Urinary Cath still in place: Yes Reason Cath still needed: other (indicate) Assessment/Plan Chief Complaint/Hosp Course IMPRESSION: 1. Pulmonary edema. 2. Hypertension. 3. Diabetes mellitus. 4. Chronic kidney disease. 5. 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 6. The patient also has possible underlying systemic inflammatory response syndrome. plan continue same cardio consult Problems: Subjective 24 Hr Interval Summary Respiratory: shortness of breath (LESS) Exam/Review of Systems Vital Signs Vitals Vital Signs Date Time Temp Pulse Resp B/P Pulse Ox O2 Delivery O2 Flow Rate FiO2 05/11/16 16:31 70 05/11/16 15:52 98.2 17 143/72 97 05/10/16 16:00 Room Air 05/09/16 13:25 21 Intake and Output 05/10/16 05/10/16 05/11/16 15:00 23:00 07:00 Intake Total 640 ml 400 ml Output Total 500 ml 600 ml Balance 140 ml -200 ml Exam Neck: supple Respiratory: diminished breath sounds Cardiovascular: regular rate and rhythm Gastrointestinal: soft Musculoskeletal: nl extremities to inspection Results Result Diagram: 05/10/16 0525 05/10/16 0525 Results 24 hrs Laboratory Tests Test 05/10/16 20:32 05/10/16 23:01 05/11/16 08:13 05/11/16 12:15 Bedside Glucose 185 167 203 258 H Test 05/11/16 17:24 05/11/16 18:20 Bedside Glucose 220 Creatine Kinase 21 L Creatine Kinase Index 3.0 Creatinine Kinase MB (Mass) 0.64 Troponin I 0.013 Medications Medications Current Medications Amlodipine Besylate (Norvasc) 10 mg DAILY PO Last administered on 05/11/16 08: 43; Admin Dose 10 MG; Start 05/10/16 at 09:00 Calcium Carbonate (Oyster Shell Calcium) 1.25 gm BID PO Last administered on 08:43; Admin Dose 1.25 GM; Start 05/09/16 at 21:00 Hydralazine HCl (Apresoline) 25 mg TID PO Last administered on 05/11/16 13:41 ; Admin Dose 25 MG; Start 05/09/16 at 21:00 Valsartan (Diovan) 120 mg QHS PO Last administered on 05/10/16 20:42; Admin Dose 120 MG; Start 05/09/16 at 21:00 Acetaminophen/ Hydrocodone Bitart ([place] (5/325)) 1 tab Q6H PRN PO MODERATE PAIN LEVEL 4-6; Start 05/09/16 at 18:30 Docusate Sodium (Colace) 100 mg Q12H PRN PO CONSTIPATION; Start 05/09/16 at 18: 30 Magnesium Hydroxide (Milk Of Mag) 30 ml DAILY PRN PO CONSTIPATION; Start at 18:30 Furosemide (Lasix) 40 mg DAILY IV Last administered on 05/11/16 08:42; Admin Dose 40 MG; Start 05/10/16 at 09:00 Miscellaneous Information 1 ea NOTE XX ; Start 05/09/16 at 19:00 Glucose (Glutose) 15 gm Q15M PRN PO DECREASED GLUCOSE; Start 05/09/16 at 19:00 Glucose (Glutose) 22.5 gm Q15M PRN PO DECREASED GLUCOSE; Start 05/09/16 at 19: 00 Dextrose (D50w Syringe) 25 ml Q15M PRN IV DECREASED GLUCOSE; Start 05/09/16 at 19:00 Dextrose (D50w Syringe) 50 ml Q15M PRN IV DECREASED GLUCOSE; Start 05/09/16 at 19:00 Glucagon (Glucagen) 1 mg Q15M PRN IM DECREASED GLUCOSE; Start 05/09/16 at 19:00 Glucose (Glutose) 15 gm Q15M PRN BUCCAL DECREASED GLUCOSE; Start 05/09/16 at 19 :00 Aspirin (Aspirin) 81 mg DAILY PO Last administered on 05/11/16 08:43; Admin Dose 81 MG; Start 05/10/16 at 09:00 Diagnostic Test (Pha) (Accucheck) 1 ea 02 XX Last administered on 05/10/16 01: 52; Admin Dose 1 EA; Start 05/10/16 at 02:00 Hydralazine HCl (Apresoline) 10 mg Q6H PRN IV ELEVATED SYSTOLIC BP; Start 05/10 at 18:30 Pantoprazole (Protonix Tab) 40 mg DAILY@06 PO ; Start 05/12/16 at 06:00 LUCAS SANTIAGO MD May 11, 2016 19:41
[2016-05-11] MEDS: VALSARTAN 80 MG TAB PO SCH (21:08)
--- NOTE | 2016-05-11 21:15 | RADRPT ---
Vent Rate: 72 bpm RR Interval: 0 msec [place] Interval: 154 msec QRS Duration: 136 msec QT Interval: 516 msec QTC Interval: 565 msec P-R-T [place]: 57 - 19 - -80 degrees Normal sinus rhythm Possible Left atrial enlargement Right bundle branch block Marked T wave abnormality, consider inferolateral ischemia Abnormal ECG Electronically Signed By: Fox Sagastume [id number]
[2016-05-12] VITALS (11 sets, daily range): BP systolic 112–142; BP diastolic 56–94; PULSE 71–84; RESP 16–20
[2016-05-12] MEDS: ACCUCHECK AT 2AM (Patients on SS coverage) XX SCH (02:00)
[2016-05-12] MEDS: PANTOPRAZOLE (EC) 40 MG TAB PO SCH (05:33)
[2016-05-12] MEDS: metFORMIN 500 MG TAB PO SCH ×2 (08:32→17:27)
[2016-05-12] MEDS: CALCIUM CARBONATE 1.25 GM TAB PO SCH ×2 (08:32→21:15)
[2016-05-12] MEDS: ASPIRIN 81 MG TAB PO SCH (08:32)
[2016-05-12] MEDS: FUROSEMIDE 40 MG INJ IV SCH (08:33)
[2016-05-12] MEDS: AMLODIPINE 10 MG TAB PO SCH (08:33)
[2016-05-12] MEDS: INSULIN ASPART [NOVOLOG] 3 ML PEN SC SCH ×4 (08:58→21:26)
--- NOTE | 2016-05-12 11:58 | CONS ---
Date/Time of Note Date/Time of Note DATE: 05/12/16 TIME: 11:55 Assessment/Plan Assessment/Plan Chief Complaint/Hosp Course IMPRESSION: 1. Congestive heart failure exacerbation, systolic, acute on chronic. Most recent EF of 40% by echo in February 2016.-negative troponin x 3 2. Shortness of breath secondary to #1. 3. Hypertension, under reasonable control. 4. Diabetes mellitus. 5. Renal failure. 6. Permanent pacemaker. 7. Anemia. 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 -Add BB for treatment of cardiomyopathy Problems: Consultation Date/Type/Reason Admit Date/Time May 09, 2016 at 15:54 Initial Consult Date 05/11/2016 Type of Consultation: Cardiology Reason for Consultation CHF Referring Provider: RIMA SANTIAGO MD Exam/Review of Systems Vital Signs Vitals Vital Signs Date Time Temp Pulse Resp B/P Pulse Ox O2 Delivery O2 Flow Rate FiO2 05/12/16 11:29 97.7 78 20 134/94 92 05/10/16 16:00 Room Air 05/09/16 13:25 21 Intake and Output 05/11/16 05/11/16 05/12/16 15:00 23:00 07:00 Intake Total 650 ml 500 ml Output Total 1800 ml 650 ml Balance -1150 ml -150 ml Exam Review of Systems: CONSTITUTIONAL: No fevers, chills. PULMONARY: mild sob-improving CARDIOVASCULAR: No chest pain/palpitations GASTROINTESTINAL: No nausea/vomiting. GENITOURINARY: No hematuria/dysuria. MUSCULOSKELETAL: No myagias/arthalgias. PSYCHIATRIC: The patient denies depression. NEUROLOGIC: No weakness Constitutional: alert Psych: no complaints Head: normocephalic Neck: jvd (9 cm water), supple Respiratory: diminished breath sounds (at bases/B) Cardiovascular: regular rate and rhythm Gastrointestinal: non-tender, soft Musculoskeletal: muscle tone (normal) Extremities: edema (trace/B) Neurological: other (No focal deficits) Results Result Diagram: 05/10/16 0525 05/10/16 0525 Results 24 hrs Laboratory Tests Test 05/11/16 12:15 05/11/16 17:24 05/11/16 18:20 05/11/16 20:44 Bedside Glucose 258 H 220 191 Creatine Kinase 21 L Creatine Kinase Index 3.0 Creatinine Kinase MB (Mass) 0.64 Troponin I 0.013 Test 05/12/16 08:15 Bedside Glucose 215 Medications Medications Current Medications Amlodipine Besylate (Norvasc) 10 mg DAILY PO Last administered on 05/12/16 08: 33; Admin Dose 10 MG; Start 05/10/16 at 09:00 Calcium Carbonate (Oyster Shell Calcium) 1.25 gm BID PO Last administered on 08:32; Admin Dose 1.25 GM; Start 05/09/16 at 21:00 Hydralazine HCl (Apresoline) 25 mg TID PO Last administered on 05/12/16 08:33 ; Admin Dose 25 MG; Start 05/09/16 at 21:00 Valsartan (Diovan) 120 mg QHS PO Last administered on 05/11/16 21:08; Admin Dose 120 MG; Start 05/09/16 at 21:00 Acetaminophen/ Hydrocodone Bitart ([place] (5/325)) 1 tab Q6H PRN PO MODERATE PAIN LEVEL 4-6; Start 05/09/16 at 18:30 Docusate Sodium (Colace) 100 mg Q12H PRN PO CONSTIPATION; Start 05/09/16 at 18: 30 Magnesium Hydroxide (Milk Of Mag) 30 ml DAILY PRN PO CONSTIPATION Last administered on 05/12/16 08:32; Admin Dose 30 ML; Start 05/09/16 at 18:30 Furosemide (Lasix) 40 mg DAILY IV Last administered on 05/12/16 08:33; Admin Dose 40 MG; Start 05/10/16 at 09:00 Miscellaneous Information 1 ea NOTE XX ; Start 05/09/16 at 19:00 Glucose (Glutose) 15 gm Q15M PRN PO DECREASED GLUCOSE; Start 05/09/16 at 19:00 Glucose (Glutose) 22.5 gm Q15M PRN PO DECREASED GLUCOSE; Start 05/09/16 at 19: 00 Dextrose (D50w Syringe) 25 ml Q15M PRN IV DECREASED GLUCOSE; Start 05/09/16 at 19:00 Dextrose (D50w Syringe) 50 ml Q15M PRN IV DECREASED GLUCOSE; Start 05/09/16 at 19:00 Glucagon (Glucagen) 1 mg Q15M PRN IM DECREASED GLUCOSE; Start 05/09/16 at 19:00 Glucose (Glutose) 15 gm Q15M PRN BUCCAL DECREASED GLUCOSE; Start 05/09/16 at 19 :00 Aspirin (Aspirin) 81 mg DAILY PO Last administered on 05/12/16 08:32; Admin Dose 81 MG; Start 05/10/16 at 09:00 Diagnostic Test (Pha) (Accucheck) 1 ea 02 XX Last administered on 05/10/16 01: 52; Admin Dose 1 EA; Start 05/10/16 at 02:00 Hydralazine HCl (Apresoline) 10 mg Q6H PRN IV ELEVATED SYSTOLIC BP; Start 05/10 at 18:30 Pantoprazole (Protonix Tab) 40 mg DAILY@06 PO Last administered on 05/12/16 05 :33; Admin Dose 40 MG; Start 05/12/16 at 06:00 DELFINA LANDAVERDE May 12, 2016 11:58
[2016-05-12 12:20] LABS: CREATININE 1.25 mg/dl (0.44-1.00)
[2016-05-12 12:21] LABS: CALCIUM 9.9 mg/dl (8.4-10.2); CHOL/HDL RATIO 2.6 RATIO
[2016-05-12 12:26] LABS: CK-MB 0.55 ng/ml (0.0-2.4)
[2016-05-12 12:29] LABS: TROPONIN-I 0.05 ng/ml (0.00-0.12)
--- NOTE | 2016-05-12 14:00 | RADRPT ---
Vent Rate: 77 bpm RR Interval: 0 msec [place] Interval: 152 msec QRS Duration: 132 msec QT Interval: 470 msec QTC Interval: 531 msec P-R-T [place]: 48 - 12 - -80 degrees Normal sinus rhythm Possible Left atrial enlargement Right bundle branch block Marked T wave abnormality, consider inferolateral ischemia Abnormal ECG Electronically Signed By: Fox Sagastume [id number]
--- NOTE | 2016-05-12 19:28 | PN ---
Date/Time of Note Date/Time of Note DATE: 05/12/16 TIME: 19:27 Assessment/Plan VTE Prophylaxis VTE Prophylaxis Intervention: other Lines/Catheters [facility] Saline Lock Urinary Cath still in place: No Assessment/Plan Chief Complaint/Hosp Course IMPRESSION: 1. Pulmonary edema.better 2. Hypertension. 3. Diabetes mellitus. 4. Chronic kidney disease. 5. 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 6. The patient also has possible underlying systemic inflammatory response syndrome. plan continue same cardio f/u pt ot Problems: Subjective 24 Hr Interval Summary Respiratory: no complaints Cardiovascular: no complaints Exam/Review of Systems Vital Signs Vitals Vital Signs Date Time Temp Pulse Resp B/P Pulse Ox O2 Delivery O2 Flow Rate FiO2 05/12/16 16:09 73 05/12/16 15:35 98.4 20 116/56 95 05/10/16 16:00 Room Air 05/09/16 13:25 21 Intake and Output 05/11/16 05/11/16 05/12/16 15:00 23:00 07:00 Intake Total 650 ml 500 ml Output Total 1800 ml 650 ml Balance -1150 ml -150 ml Exam Neck: supple Respiratory: clear to auscultation Cardiovascular: regular rate and rhythm Gastrointestinal: soft Musculoskeletal: nl extremities to inspection Extremities: normal pulses Results Result Diagram: 05/10/16 0525 05/12/16 1120 Results 24 hrs Laboratory Tests Test 05/11/16 20:44 05/12/16 08:15 05/12/16 11:20 05/12/16 12:19 Bedside Glucose 191 215 222 H Anion Gap 17 H Blood Urea Nitrogen 36 H Calcium Level 9.9 Carbon Dioxide Level 28 Chloride Level 94 L Cholesterol Level 128 Cholesterol/HDL Ratio 2.6 Creatine Kinase 26 Creatine Kinase Index 2.1 Creatinine 1.25 H Creatinine Kinase MB (Mass) 0.55 Glucose Level 228 H HDL Cholesterol 48 LDL Cholesterol, Calculated 54 Potassium Level 4.0 Sodium Level 135 Triglycerides Level 128 Troponin I 0.050 Test 05/12/16 17:26 Bedside Glucose 259 H Medications Medications Current Medications Amlodipine Besylate (Norvasc) 10 mg DAILY PO Last administered on 05/12/16t 08: 33; Admin Dose 10 MG; Start 05/10/16 at 09:00 Calcium Carbonate (Oyster Shell Calcium) 1.25 gm BID PO Last administered on 08:32; Admin Dose 1.25 GM; Start 05/09/16 at 21:00 Hydralazine HCl (Apresoline) 25 mg TID PO Last administered on 05/12/16 14:46 ; Admin Dose 25 MG; Start 05/09/16 at 21:00 Valsartan (Diovan) 120 mg QHS PO Last administered on 05/11/16 21:08; Admin Dose 120 MG; Start 05/09/16 at 21:00 Acetaminophen/ Hydrocodone Bitart ([place] (5/325)) 1 tab Q6H PRN PO MODERATE PAIN LEVEL 4-6; Start 05/09/16 at 18:30 Docusate Sodium (Colace) 100 mg Q12H PRN PO CONSTIPATION; Start 05/09/16 at 18: 30 Magnesium Hydroxide (Milk Of Mag) 30 ml DAILY PRN PO CONSTIPATION Last administered on 05/12/16 08:32; Admin Dose 30 ML; Start 05/09/16 at 18:30 Furosemide (Lasix) 40 mg DAILY IV Last administered on 05/12/16 08:33; Admin Dose 40 MG; Start 05/10/16 at 09:00 Miscellaneous Information 1 ea NOTE XX ; Start 05/09/16 at 19:00 Glucose (Glutose) 15 gm Q15M PRN PO DECREASED GLUCOSE; Start 05/09/16 at 19:00 Glucose (Glutose) 22.5 gm Q15M PRN PO DECREASED GLUCOSE; Start 05/09/16 at 19: 00 Dextrose (D50w Syringe) 25 ml Q15M PRN IV DECREASED GLUCOSE; Start 05/09/16 at 19:00 Dextrose (D50w Syringe) 50 ml Q15M PRN IV DECREASED GLUCOSE; Start 05/09/16 at 19:00 Glucagon (Glucagen) 1 mg Q15M PRN IM DECREASED GLUCOSE; Start 05/09/16 at 19:00 Glucose (Glutose) 15 gm Q15M PRN BUCCAL DECREASED GLUCOSE; Start 05/09/16 at 19 :00 Aspirin (Aspirin) 81 mg DAILY PO Last administered on 05/12/16 08:32; Admin Dose 81 MG; Start 05/10/16 at 09:00 Diagnostic Test (Pha) (Accucheck) 1 ea 02 XX Last administered on 05/10/16 01: 52; Admin Dose 1 EA; Start 05/10/16 at 02:00 Hydralazine HCl (Apresoline) 10 mg Q6H PRN IV ELEVATED SYSTOLIC BP; Start 05/10 at 18:30 Pantoprazole (Protonix Tab) 40 mg DAILY@06 PO Last administered on 05/12/16 05 :33; Admin Dose 40 MG; Start 05/12/16 at 06:00 Metoprolol Succinate (Toprol Xl) 25 mg DAILY PO ; Start 05/13/16 at 09:00 LUCAS SANTIAGO MD May 12, 2016 19:28
[2016-05-12] MEDS: VALSARTAN 80 MG TAB PO SCH (21:15)
[2016-05-13] VITALS (10 sets, daily range): BP systolic 117–149; BP diastolic 57–69; PULSE 73–80; RESP 16–18
[2016-05-13] MEDS: ACCUCHECK AT 2AM (Patients on SS coverage) XX SCH (02:00)
[2016-05-13] MEDS: PANTOPRAZOLE (EC) 40 MG TAB PO SCH (05:31)
[2016-05-13] MEDS: INSULIN ASPART [NOVOLOG] 3 ML PEN SC SCH ×3 (08:00→17:56)
[2016-05-13] MEDS: metFORMIN 500 MG TAB PO SCH ×2 (08:25→18:06)
[2016-05-13] MEDS ORDERED: METOPROLOL (XL) 25 MG TAB PO SCH (09:00)
[2016-05-13] MEDS: FUROSEMIDE 40 MG INJ IV SCH (09:37)
[2016-05-13] MEDS: CALCIUM CARBONATE 1.25 GM TAB PO SCH (09:37)
[2016-05-13] MEDS: AMLODIPINE 10 MG TAB PO SCH (09:38)
[2016-05-13] MEDS: ASPIRIN 81 MG TAB PO SCH (09:38)
--- NOTE | 2016-05-13 12:19 | CONS ---
Date/Time of Note Date/Time of Note DATE: 05/13/16 TIME: 12:16 Assessment/Plan Assessment/Plan Chief Complaint/Hosp Course IMPRESSION: 1. Congestive heart failure exacerbation, systolic, acute on chronic. Most recent EF of 40% by echo in February 2016.-negative troponin x 3 2. Shortness of breath secondary to #1. 3. Hypertension, under reasonable control. 4. Diabetes mellitus. 5. Renal failure. 6. Permanent pacemaker. 7. Anemia. Recc: -Tele -Continue asa -Continue norvasc/diovan/BB/hydralazine for treatment of HTN/cardiomyopathy -Continue lasix diuresis and follow business performance advisor/output closely Problems: Consultation Date/Type/Reason Admit Date/Time May 13, 2016 at 08:21 Initial Consult Date 05/11/2016 Type of Consultation: Cardiology Reason for Consultation CHF Referring Provider: LUCAS SANTIAGO MD Exam/Review of Systems Vital Signs Vitals Vital Signs Date Time Temp Pulse Resp B/P Pulse Ox O2 Delivery O2 Flow Rate FiO2 05/13/16 12:02 80 05/13/16 11:36 98.5 18 117/57 96 05/10/16 16:00 Room Air 05/09/16 13:25 21 Intake and Output 05/12/16 05/12/16 05/13/16 15:00 23:00 07:00 Intake Total 850 ml 750 ml Output Total 1200 ml 4 ml Balance -350 ml 746 ml Exam Review of Systems: CONSTITUTIONAL: No fevers, chills. PULMONARY: No sob CARDIOVASCULAR: No chest pain/palpitations GASTROINTESTINAL: No nausea/vomiting. GENITOURINARY: No hematuria/dysuria. MUSCULOSKELETAL: No myagias/arthalgias. PSYCHIATRIC: The patient denies depression. NEUROLOGIC: lethargic Constitutional: other (sleeping) Psych: no complaints Head: normocephalic ENMT: mucosa pink and moist Neck: jvd (9 cm water), supple Respiratory: diminished breath sounds (at bases/B) Cardiovascular: regular rate and rhythm Gastrointestinal: non-tender, soft Musculoskeletal: muscle tone (nbormal) Extremities: edema (none) Neurological: lethargic Results Result Diagram: 05/10/16 0525 05/12/16 1120 Results 24 hrs Laboratory Tests Test 05/12/16 12:19 05/12/16 17:26 05/12/16 21:13 05/13/16 05:30 Bedside Glucose 222 H 259 H 220 248 H Test 05/13/16 08:13 Bedside Glucose 139 Medications Medications Current Medications Amlodipine Besylate (Norvasc) 10 mg DAILY PO Last administered on 05/13/16 09: 38; Admin Dose 10 MG; Start 05/10/16 at 09:00 Calcium Carbonate (Oyster Shell Calcium) 1.25 gm BID PO Last administered on 09:37; Admin Dose 1.25 GM; Start 05/09/16 at 21:00 Hydralazine HCl (Apresoline) 25 mg TID PO Last administered on 05/13/16 09:38 ; Admin Dose 25 MG; Start 05/09/16 at 21:00 Valsartan (Diovan) 120 mg QHS PO Last administered on 05/12/16 21:15; Admin Dose 120 MG; Start 05/09/16 at 21:00 Acetaminophen/ Hydrocodone Bitart ([place] (5/325)) 1 tab Q6H PRN PO MODERATE PAIN LEVEL 4-6; Start 05/09/16 at 18:30 Docusate Sodium (Colace) 100 mg Q12H PRN PO CONSTIPATION; Start 05/09/16 at 18: 30 Magnesium Hydroxide (Milk Of Mag) 30 ml DAILY PRN PO CONSTIPATION Last administered on 05/12/16 08:32; Admin Dose 30 ML; Start 05/09/16 at 18:30 Furosemide (Lasix) 40 mg DAILY IV Last administered on 05/13/16 09:37; Admin Dose 40 MG; Start 05/10/16 at 09:00 Miscellaneous Information 1 ea NOTE XX ; Start 05/09/16 at 19:00 Glucose (Glutose) 15 gm Q15M PRN PO DECREASED GLUCOSE; Start 05/09/16 at 19:00 Glucose (Glutose) 22.5 gm Q15M PRN PO DECREASED GLUCOSE; Start 05/09/16 at 19: 00 Dextrose (D50w Syringe) 25 ml Q15M PRN IV DECREASED GLUCOSE; Start 05/09/16 at 19:00 Dextrose (D50w Syringe) 50 ml Q15M PRN IV DECREASED GLUCOSE; Start 05/09/16 at 19:00 Glucagon (Glucagen) 1 mg Q15M PRN IM DECREASED GLUCOSE; Start 05/09/16 at 19:00 Glucose (Glutose) 15 gm Q15M PRN BUCCAL DECREASED GLUCOSE; Start 05/09/16 at 19 :00 Aspirin (Aspirin) 81 mg DAILY PO Last administered on 05/13/16 09:38; Admin Dose 81 MG; Start 05/10/16 at 09:00 Diagnostic Test (Pha) (Accucheck) 1 ea 02 XX Last administered on 05/10/16 01: 52; Admin Dose 1 EA; Start 05/10/16 at 02:00 Hydralazine HCl (Apresoline) 10 mg Q6H PRN IV ELEVATED SYSTOLIC BP; Start 05/10 at 18:30 Pantoprazole (Protonix Tab) 40 mg DAILY@06 PO Last administered on 05/13/16 05 :31; Admin Dose 40 MG; Start 05/12/16 at 06:00 Metoprolol Succinate (Toprol Xl) 25 mg DAILY PO Last administered on 05/13/16 09:37; Admin Dose 25 MG; Start 05/13/16 at 09:00 DELFINA LANDAVERDE May 13, 2016 12:19
--- NOTE | 2016-05-13 15:19 | PDOCDIS ---
Discharge Instructions CONDITION Patient Condition: Stable HOME CARE INSTRUCTIONS: Special Diet: carb controlled ACTIVITY: Activity Restrictions: Slowly Increase Activity FOLLOW UP/APPOINTMENTS Appointments f/u dr huynh [address] vickers 2 wks LUCAS SANTIAGO MD May 13, 2016 15:19
[2016-05-13] MEDS ORDERED: FURO40TA4 PO (15:24)
[2016-05-13] MEDS ORDERED: METO25TA7 PO (15:24)
--- NOTE | 2016-05-13 15:26 | PDOCDIS ---
Discharge Instructions CONDITION Patient Condition: Stable HOME CARE INSTRUCTIONS: Special Diet: carb controlled ACTIVITY: Activity Restrictions: Slowly Increase Activity FOLLOW UP/APPOINTMENTS Appointments see dr vickers [address] foster santiago 2 wks LUCAS SANTIAGO MD May 13, 2016 15:26
--- NOTE | 2016-05-13 20:09 | PN ---
Date/Time of Note Date/Time of Note DATE: 05/13/16 TIME: 20:08 Assessment/Plan VTE Prophylaxis VTE Prophylaxis Intervention: other Lines/Catheters IV Catheter Type (from [facility], [place]): Saline Lock Urinary Cath still in place: No Assessment/Plan Chief Complaint/Hosp Course IMPRESSION: 1. Pulmonary edema.better 2. Hypertension. 3. Diabetes mellitus. 4. Chronic kidney disease. 5. 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 6. The patient also has possible underlying systemic inflammatory response syndrome. plan continue same home Problems: Subjective 24 Hr Interval Summary Respiratory: no complaints Cardiovascular: no complaints Exam/Review of Systems Vital Signs Vitals Vital Signs Date Time Temp Pulse Resp B/P Pulse Ox O2 Delivery O2 Flow Rate FiO2 05/13/16 16:06 76 05/13/16 15:37 98.6 18 139/62 95 05/10/16 16:00 Room Air 05/09/16 13:25 21 Intake and Output 05/12/16 05/12/16 05/13/16 15:00 23:00 07:00 Intake Total 850 ml 750 ml Output Total 1200 ml 4 ml Balance -350 ml 746 ml Exam Respiratory: clear to auscultation Cardiovascular: regular rate and rhythm Gastrointestinal: soft Results Result Diagram: 05/10/16 0525 05/12/16 1120 Results 24 hrs Laboratory Tests Test 05/12/16 21:13 05/13/16 05:30 05/13/16 08:13 05/13/16 12:04 Bedside Glucose 220 248 H 139 273 H Medications Medications Current Medications Amlodipine Besylate (Norvasc) 10 mg DAILY PO Last administered on 05/13/16 09: 38; Admin Dose 10 MG; Start 05/10/16 at 09:00 Calcium Carbonate (Oyster Shell Calcium) 1.25 gm BID PO Last administered on 09:37; Admin Dose 1.25 GM; Start 05/09/16 at 21:00 Hydralazine HCl (Apresoline) 25 mg TID PO Last administered on 05/13/16 12:22 ; Admin Dose 25 MG; Start 05/09/16 at 21:00 Valsartan (Diovan) 120 mg QHS PO Last administered on 05/12/16 21:15; Admin Dose 120 MG; Start 05/09/16 at 21:00 Acetaminophen/ Hydrocodone Bitart ([place] (5/325)) 1 tab Q6H PRN PO MODERATE PAIN LEVEL 4-6 Last administered on 05/13/16 12:21; Admin Dose 1 TAB; Start at 18:30 Docusate Sodium (Colace) 100 mg Q12H PRN PO CONSTIPATION; Start 05/09/16 at 18: 30 Magnesium Hydroxide (Milk Of Mag) 30 ml DAILY PRN PO CONSTIPATION Last administered on 05/12/16 08:32; Admin Dose 30 ML; Start 05/09/16 at 18:30 Furosemide (Lasix) 40 mg DAILY IV Last administered on 05/13/16 09:37; Admin Dose 40 MG; Start 05/10/16 at 09:00 Miscellaneous Information 1 ea NOTE XX ; Start 05/09/16 at 19:00 Glucose (Glutose) 15 gm Q15M PRN PO DECREASED GLUCOSE; Start 05/09/16 at 19:00 Glucose (Glutose) 22.5 gm Q15M PRN PO DECREASED GLUCOSE; Start 05/09/16 at 19: 00 Dextrose (D50w Syringe) 25 ml Q15M PRN IV DECREASED GLUCOSE; Start 05/09/16 at 19:00 Dextrose (D50w Syringe) 50 ml Q15M PRN IV DECREASED GLUCOSE; Start 05/09/16 at 19:00 Glucagon (Glucagen) 1 mg Q15M PRN IM DECREASED GLUCOSE; Start 05/09/16 at 19:00 Glucose (Glutose) 15 gm Q15M PRN BUCCAL DECREASED GLUCOSE; Start 05/09/16 at 19 :00 Aspirin (Aspirin) 81 mg DAILY PO Last administered on 05/13/16 09:38; Admin Dose 81 MG; Start 05/10/16 at 09:00 Diagnostic Test (Pha) (Accucheck) 1 ea 02 XX Last administered on 05/10/16 01: 52; Admin Dose 1 EA; Start 05/10/16 at 02:00 Hydralazine HCl (Apresoline) 10 mg Q6H PRN IV ELEVATED SYSTOLIC BP; Start 05/10 at 18:30 Pantoprazole (Protonix Tab) 40 mg DAILY@06 PO Last administered on 05/13/16 05 :31; Admin Dose 40 MG; Start 05/12/16 at 06:00 Metoprolol Succinate (Toprol Xl) 25 mg DAILY PO Last administered on 05/13/16t 09:37; Admin Dose 25 MG; Start 05/13/16 at 09:00 LUCAS SANTIAGO MD May 13, 2016 20:09
--- NOTE | 2016-05-15 15:06 | QN ---
Documentation Comment [id number] LUCAS SANTIAGO MD May 15, 2016 15:05
--- NOTE | 2016-05-15 20:19 | DS ---
DATE OF ADMISSION: 05/13/2016 DATE OF DISCHARGE: 05/13/2016 HOSPITAL COURSE: The patient with history of CKD, hypertension, dyslipidemia, pacemaker placement, noncompliance with diabetes mellitus, presented. The patient was seen by Dr. Gavin in consultatio n. His impression: Congestive heart failure exacerbation, ejection fraction 40%, short of breath, hypertension, diabetes mellitus, renal failure, permanent pacemaker, anemia. The patient received d iuretic therapy. The patient's symptoms are resolving and the patient was cleared to be discharged home. DISCHARGE DIAGNOSES: Include: 1. Acute systolic heart failure. 2. The patient also has diabetes mellitus. 3. Hypertension. 4. Pacemaker placement. 5. Anemia. 6. Electrolyte imbalance. 7. Noncompliance. FOLLOWUP: The patient to follow up with PCP and myself, Dr. Santiago, in [address] Pam ramirez in 1 to 2 weeks. DISCHARGE MEDICATIONS: The patient's home medications to continue: 1. Lasix. 2. Metoprolol. 3. Amlodipine. 4. Calcium carbonate. 5. Glipizide. 6. Hydralazine. 7. Metformin. 8. Januvia. DIET: Diabetic, cardiac diet. Dictated By: LUCAS SANTIAGO MD BS/JONY Conf#: [id number] DID#: [id number]
== END 2016-05-13 19:50 | disposition home or self-care (01) | DRG 292 ==
LOC: E/R 09:41 → INTOOBSV 15:54 → MS4 15:54 → OBSVTOIN 05-13 08:21
PROVIDERS: ADMIT Internal Medicine Nephrology; ATTEND Internal Medicine Nephrology
DX: I50.23 Acute on chronic systolic (congestive) heart failure (principal); J81.1 Chronic pulmonary edema; E87.8 Other disorders of electrolyte and fluid balance, not elsewhere classified; E11.9 Type 2 diabetes mellitus without complications; D64.9 Anemia, unspecified; I12.9 Hypertensive chronic kidney disease with stage 1 through stage 4 chronic kidney disease, or unspecified chronic kidney disease; Z95.0 Presence of cardiac pacemaker; Z91.14 Patient's other noncompliance with medication regimen; Z79.82 Long term (current) use of aspirin; Z79.4 Long term (current) use of insulin; N18.9 Chronic kidney disease, unspecified
CPT/HCPCS: 36415; 71010; 80048; 80053; 80061; 81003; 82550; 82553; 82962; 83036; 83690; 83880; 84484; 85025; 93005; 94664; 96372; 96374; 96375; 96376; 97162; G0378; C9113; J1815; J1940

== ENCOUNTER 2016-05-25 02:55 | Inpatient (IN) | payer MEDICARE, OTHER ==
[~2016-05-25] VITALS: Ht 167.6 cm; Wt 90.1 kg
[~2016-05-25 02:55] MED LIST changes: -FURO20TA PO; -FURO20TA3 PO; +FURO40TA4 PO; +METO25TA7 PO; -ULT50 PO
[2016-05-25 05:48] LABS: INR 1.01; PROTIME 13.3 Sec (12.2-14.2)
[2016-05-25 05:49] LABS: PARTIAL THROMBOPLASTIN TIME 26.8 Sec (25.0-35.0)
[2016-05-25 05:57] LABS: ALBUMIN 3.7 g/dl (3.3-4.9); POTASSIUM 5.1 mmol/L (3.5-5.1)
[2016-05-25 05:59] LABS: CREATININE 1.21 mg/dl (0.44-1.00)
[2016-05-25 06:00] LABS: ALBUMIN/GLOBULIN RATIO 1.02; BILIRUBIN,INDIRECT 0.2 mg/dl (0-1.1); BILIRUBIN,TOTAL 0.2 mg/dl (0.2-1.3); CALCIUM 10.3 mg/dl (8.4-10.2); TOTAL PROTEIN 7.3 g/dl (6.1-8.1)
[2016-05-25 06:04] LABS: BASOPHILS % 0.1 % (0.0-2.0); EOSINOPHILS # 0.1 10^3/ul (0.0-0.5); EOSINOPHILS % 1.3 % (0.0-7.0); HEMATOCRIT 35.3 % (37.0-47.0); HEMOGLOBIN 11.4 g/dl (12.0-16.0); LYMPHOCYTES # 1.3 10^3/ul (0.8-2.9); LYMPHOCYTES % 16.8 % (15.0-51.0); MEAN CORPUSCULAR HEMOGLOBIN 28.9 pg (29.0-33.0); MEAN CORPUSCULAR HGB CONC 32.3 g/dl (32.0-37.0); MEAN CORPUSCULAR VOLUME 89.3 fl (82.0-101.0); MEAN PLATELET VOLUME 10.7 fl (7.4-10.4); MONOCYTE # 0.5 10^3/ul (0.3-0.9); MONOCYTES % 6.2 % (0.0-11.0); NEUTROPHIL # 5.9 10^3/ul (1.6-7.5); NEUTROPHILS % 75.6 % (39.0-77.0); PLATELET COUNT 207 10^3/UL (140-440); RED BLOOD COUNT 3.96 10^6/ul (4.20-5.40); RED CELL DISTRIBUTION WIDTH 16.1 % (11.5-14.5); UNCORRECTED WBC 7.8 10^3/ul (4.8-10.8); WHITE BLOOD COUNT 7.8 10^3/ul (4.8-10.8)
[2016-05-25 06:08] LABS: CONDITION 1; LH ANALYZER COMMENTS 1
[2016-05-25] MEDS ORDERED: ONDANSETRON (ODT) 4 MG TAB ODT STA (06:14)
--- NOTE | 2016-05-25 06:18 | RADRPT ---
PROCEDURE: CHEST - 1 VIEW CLINICAL INDICATION: 65-year-old female with chest pain. TECHNIQUE: A single frontal semi-erect view of the chest was performed portably. The images were reviewed on a PACS workstation. COMPARISON: Chest x-ray May 09, 2016. FINDINGS: There is a left-sided dual chamber pacemaker. The cardiomediastinal silhouette is enlarged but with out significant interval change. There is mild pulmonary vascular congestion. There is a shallow i nspiration. There is mild bibasilar subsegmental atelectasis. There is no evidence for focal conso lidation. There is no evidence for pneumothorax. The osseous structures are intact. IMPRESSION: 1. Left-sided dual chamber pacemaker. 2. Cardiomegaly. 3. Mild pulmonary vascular congestion. 4. Shallow inspiration. 5. Mild bibasilar subsegmental atelectasis. .Isidro Lundberg MD, MD Date Time Electronically viewed and signed by .Isidro Lundberg MD, on 05/25/2016 06:18 .M/
[2016-05-25] MEDS ORDERED: FUROSEMIDE 40 MG INJ IV ONE ×2 (06:30→07:30)
[2016-05-25] MEDS ORDERED: HYDROCODONE/HOMATROPINE 5ML CUP PO ONE (06:30)
[2016-05-25 06:43] LABS: TROPONIN-I 0.014 ng/ml (0.00-0.12)
--- NOTE | 2016-05-25 07:31 | ERA ---
ER Documentation Chief Complaint Date/Time DATE: 05/25/16 TIME: 07:11 Chief Complaint lower back pain, cough/sneezing x 3 days, pt was here 3 days ago. HPI PT IS A 65 YEAR OLD FEMALE WHO PRESENTS COMPLAINING OF A COUGH PRODUCTIVE OF CLEAR PHLEGM WITH SWELLING AND SHORTNESS OF BREATH. SHE IS SHORT OF BREATH WITH EXERTION AND LYING FLAT AND STATES HER FACE IS ALSO SWOLLEN. SHE STATES SHE HAS A RUNNY NOSE TOO. SHE DENIES A FEVER, SORE THROAT, EARACHE, N/V/D/ CHEST PAIN, DIARRHEA OR ABDOMINAL PAIN. SHE HAS NOT BEEN AROUND ANYONE WHO IS SICK AND HAS NOT TRAVELLED ANYWHERE. NOTHING SHE HAS DONE HAS MADE HER SYMPTOMS BETTER. ROS All systems reviewed and are negative except as per history of present illness. Medications Home Meds Active Scripts Furosemide (Lasix) 40 Mg Tab, 40 MG PO DAILY for 30 Days, TAB Prov:LUCAS SANTIAGO MD 05/13/16 Metoprolol Succinate* (Toprol XL*) 25 Mg Tab.sr.24h, 25 MG PO DAILY for 30 Days , #60 Prov:LCUAS SANTIAGO MD 05/13/16 Valsartan* (Diovan*) 80 Mg Tablet, 120 MG PO QHS for 30 Days, TAB 3 Refills take 1 and 1/2 tab po qhs Prov:TRACEY NEAL 03/21/16 Amlodipine Besylate* (Amlodipine Besylate*) 10 Mg Tablet, 10 MG PO DAILY for 30 Days, TAB 3 Refills Prov:TRACEY NEAL 03/21/16 Reported Medications Hydralazine Hcl* (Hydralazine Hcl*) 25 Mg Tab, 25 MG PO TID, #120 TAB 03/19/16 Sitagliptin* (Januvia*) 100 Mg Tablet, 100 MG PO DAILY, #30 TAB 10/13/15 Calcium Carbonate* ([place]-500*) 1 Tab Tablet, 1 TAB PO BID, TAB 10/13/15 Metformin* (Glucophage*) 1,000 Mg Tablet, 1000 MG PO BID, #60 TAB 10/13/15 Glipizide* (Glipizide*) 10 Mg Tablet, 10 MG PO BID, TAB 10/13/15 Allergies Allergies: Coded Allergies: sulfamethoxazole (Verified Allergy, Mild, DIARRHEA,STOMACH PAIN, 05/09/16) trimethoprim (Verified Allergy, Mild, DIARRHEA,STOMACH PAIN, 05/09/16) PMhx/Soc History of Surgery: Yes (HYSTERECTOMY) Anesthesia Reaction: No Hx Neurological Disorder: No Hx Respiratory Disorders: No Hx Cardiac Disorders: Yes (HTN) Hx Psychiatric Problems: No Hx Miscellaneous Medical Probl: Yes (DM) Hx Alcohol Use: No Hx Substance Use: No Hx Tobacco Use: No Smoking Status: Former smoker FmHx GENERAL: WELL DEVELOPED WELL NOURISHED FEMALE IN NO ACUTE DISTRESS, ABLE TO SPEAK IN FULL SENTENCES HEENT: AT/NC, PEERL, TM'S CLEAR, NECK SUPPLE CV: RRR, NO MURMURS, RUBS OR GALLOPS LUNGS: CRACKLES 1/3 OF CHEST, MILD TACHYPNEA ABDOMEN: SOFT NONTENDER, NONDISTENDED WITH + BOWEL SOUNDS, NO MASSES MUSCULOSKELETAL: BILATERAL NON PITTING EDEMA nEURO: A&O X3, MOVES ALL EXTREMITIES EQUALLY AND NONFOCAL, GCS =15 SKIN: NO RASHES OR LESIONS Family History: coronary disease, diabetes Physical Exam Vitals Vital Signs Date Time Temp Pulse Resp B/P Pulse Ox O2 Delivery O2 Flow Rate FiO2 05/25/16 08:33 98.3 70 16 128/67 Room Air 05/25/16 05:00 97.1 71 20 127/91 100 Room Air 05/25/16 03:16 97.1 76 20 145/67 100 Physical Exam Const: [] Head: Atraumatic Eyes: Normal Conjunctiva ENT: Normal External Ears, Nose and Mouth. Neck: Full range of motion..~ No meningismus. Resp: Clear to auscultation bilaterally Cardio: Regular rate and rhythm, no murmurs Abd: Soft, non tender, non distended. Normal bowel sounds Skin: No petechiae or rashes Back: No midline or flank tenderness Ext: No cyanosis, or edema Neur: Awake and alert Psych: Normal Mood and Affect Result Diagram: 05/25/1651905/25/1620 Results 24 hrs Laboratory Tests Test 05/25/16 05:20 Activated Partial Thromboplast Time 26.8Sec Alanine Aminotransferase (ALT/SGPT) 55IU/L Albumin 3.7g/dl Albumin/Globulin Ratio 1.02 Alkaline Phosphatase 151IU/L Anion Gap 19 Aspartate Amino Transf (AST/SGOT) 27IU/L B-Type Natriuretic Peptide 45756RP/ML Basophils # 0.010^3/ul Basophils % 0.1% Blood Morphology Comment Blood Urea Nitrogen 36mg/dl Calcium Level 10.3mg/dl Carbon Dioxide Level 24mmol/L Chloride Level 99mmol/L Creatinine 1.21mg/dl Direct Bilirubin 0.00mg/dl Eosinophils # 0.110^3/ul Eosinophils % 1.3% Globulin 3.60g/dl Glucose Level 219mg/dl Hematocrit 35.3% Hemoglobin 11.4g/dl INR International Normalized Ratio 1.01 Indirect Bilirubin 0.2mg/dl Lymphocytes # 1.310^3/ul Lymphocytes % 16.8% Mean Corpuscular Hemoglobin 28.9pg Mean Corpuscular Hemoglobin Concent 32.3g/dl Mean Corpuscular Volume 89.3fl Mean Platelet Volume 10.7fl Monocytes # 0.510^3/ul Monocytes % 6.2% Neutrophils # 5.910^3/ul Neutrophils % 75.6% Nucleated Red Blood Cells # 0.010^3/ul Nucleated Red Blood Cells % 0.0/100WBC Platelet Count 71308^3/UL Potassium Level 5.1mmol/L Prothrombin Time 13.3Sec Prothrombin Time Ratio 1.0 Red Blood Count 3.9610^6/ul Red Cell Distribution Width 16.1% Sodium Level 137mmol/L Total Bilirubin 0.2mg/dl Total Protein 7.3g/dl Troponin I 0.014ng/ml White Blood Count 7.810^3/ul Current Medications Medications (Trade) Dose Ordered Sig/Jaspal Route PRN Reason Start Time Stop Time Status Last Admin Dose Admin Furosemide (Lasix) 40 mg ONCE ONCE IV 05/25/16 06:30 05/25/16 06:31 DC 05/25/16 06:49 Hydrocodone Bit/ Homatropine Methylb (Hycodan Liquid) 10 ml ONCE ONCE PO 05/25/16 06:30 05/25/16 06:31 DC 05/25/16 06:56 Ondansetron HCl (Zofran Odt) 4 mg ONCE STAT ODT 05/25/16 06:14 05/25/16 06:18 DC 05/25/16 06:48 Furosemide (Lasix) 40 mg ONCE ONCE IV 05/25/16 07:30 05/25/16 07:31 DC 05/25/16 07:13 Procedures/MDM EKG: NSR @ 75 BPM, AV DISSOCIATION, P WAVES FALL WITHIN THE T WAVES, WIDENED QRS , RBBB, PROLONGED QT, NO PACER SPIKES SEEN CXR: C/W CHF PT IS BEGINNING TO DIURESE. SHE STATES SHE DOES NOT FEEL ANY DIFFERENT. [address] BISHOP AND DR DOHERTY HER S[employer] CONSULTANT FOR ADMISSION. 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
[2016-05-25] MEDS ORDERED: ACETAMINOPHEN 325 MG TAB PO PRN ×3 (10:00→14:30)
[2016-05-25] MEDS ORDERED: ONDANSETRON 4 MG INJ IV PRN ×2 (10:00→14:30)
[2016-05-25 10:54] VITALS: TEMP 98.7
[2016-05-25] MEDS ORDERED: ONDANSETRON 4 MG TAB PO PRN (11:30)
[2016-05-25] MEDS ORDERED: LORAZEPAM 0.5 MG TAB PO PRN (11:30)
[2016-05-25] MEDS ORDERED: NACL 0.9% 3 ML SYG IV SCH (11:30)
[2016-05-25] MEDS ORDERED: NITROGLYCERIN (SL) 0.4 MG TAB SL PRN (11:30)
[2016-05-25] MEDS ORDERED: DOCUSATE SODIUM 100 MG CAP PO PRN (11:30)
[2016-05-25] MEDS: INSULIN ASPART [NOVOLOG] 3 ML PEN SC SCH ×3 (12:35→21:41)
[2016-05-25] MEDS ORDERED: GLUCAGON 1 MG INJ IM PRN (13:00)
[2016-05-25] MEDS ORDERED: DEXTROSE 50% 50 ML SYRINGE IV PRN ×2 (13:00)
[2016-05-25] MEDS ORDERED: GLUCOSE GEL 15 GRAM TUBE BUCCAL PRN (13:00)
[2016-05-25] MEDS ORDERED: GLUCOSE GEL 15 GRAM TUBE PO PRN ×2 (13:00)
[2016-05-25 13:14] LABS: CREATINE KINASE 22 IU/L (23-200)
[2016-05-25 13:24] LABS: CK-MB 0.48 ng/ml (0.0-2.4)
[2016-05-25 13:28] LABS: TROPONIN-I < 0.012 ng/ml (0.00-0.12)
[2016-05-25 16:00] VITALS: BP 148/70; RESP 17; Ht 167.6 cm; Wt 90.1 kg
--- NOTE | 2016-05-25 16:03 | CONS ---
DATE OF ADMISSION: 05/25/2016 DATE OF CONSULTATION: 05/25/2016 REASON FOR CONSULTATION: Congestive heart failure exacerbation permanent pacemaker. REQUESTING PHYSICIAN: Dr. Coles from the hospitalist service. HISTORY OF PRESENT ILLNESS: Ms. Arias is a 65-year-old female with a history of cardiomyopathy wit h mildly depressed left ventricular ejection fraction, last known to be approximately 40% by echo , negative stress test for ischemia in September 2015 revealing EF of 43%, permanent pacemaker, hype rtension, diabetes mellitus, recurrent bouts of congestive heart failure, recent admission for conge stive heart failure, now represents with generalized feelings of weakness, shortness of breath. Upo n arrival in the emergency department, temperature 98.7, blood pressure 144/67, pulse 76, respiratio ns 20, 100%. The patient's labs revealed a white cell count 7.8, hemoglobin 11.4, platelet count 20 7, sodium 137, potassium 5.1, creatinine 1.1, BUN of 36, AST 27, ALT 55, alkaline phosphatase 155. Troponin negative. BNP 10,500. INR of 1.0. Patient's chest x-ray revealed left-sided pacemaker, c ardiomegaly, mild pulmonary vascular congestion, shallow inspiration, mild bibasilar subsegmental at electasis. Patient's electrocardiogram revealed rhythm most consistent with probable sinus rhythm w ith a prolonged first degree AV block, a nonspecific IVCD with prolonged first degree AV block, vent ricular pacing rate of 75. Since admit patient has been treated with Lasix, hydrocodone, Tylenol, Z ofran. ALLERGIES: BACTRIM. SOCIAL HISTORY: No tobacco, ETOH or illicit drug use. FAMILY HISTORY: Negative for sudden cardiac or early CAD. REVIEW OF SYSTEMS: As above in HPI. CONSTITUTIONAL: No fevers, chills. PULMONARY: Positive shortness of breath. CARDIOVASCULAR: Congestive heart failure. GASTROINTESTINAL: No vomiting. GENITOURINARY: No hematuria. MUSCULOSKELETAL: Degenerative joint disease. PSYCHIATRIC: Possible psychiatric history. NEUROLOGIC: No documented history of CVA. ENDOCRINE: Diabetes mellitus. PHYSICAL EXAMINATION: VITAL SIGNS: Temperature 98.7, blood pressure 135/84, pulse 70, respirations 16, saturating 100% on 2 liters. GENERAL: The patient is sleeping but arousable. NECK: JVP approximately 9 cm water. CHEST: Bibasilar crackles. HEART: Regular rate and rhythm. Normal S1, S2, I/ systolic murmur, nondisplaced PMI. ABDOMEN: Positive bowel sounds, soft. EXTREMITIES: Trace edema bilaterally, 1+ pulses bilaterally, posterior tibial. LABORATORIES: As above in HPI, since admit patient had a second troponin return negative for 2 nega tive troponins. IMAGING STUDIES: As above in HPI. No further imaging studies for my review at this time. ECG: As above in HPI. No further electrocardiograms for my review at this time. IMPRESSION: 1. Congestive heart failure exacerbation, systolic by most recent echo, acute on chronic. 2. Cardiomyopathy with decreased left ventricular ejection fraction, last being approximately 40 to 45% by echo in 02/2016. 3. Permanent pacemaker. 4. Hypertension. 5. Renal insufficiency/failure. 6. Anemia. 7. Generalized lethargy. 8. Diabetes mellitus. RECOMMENDATIONS: 1. At this time, would admit patient to telemetry monitoring to follow rhythm and rate control clos mercedes. 2. Complete the patient's rule out for myocardial infarction to ensure the patient's constellation of symptoms are not due to an acute coronary syndrome such as acute myocardial infarction and send t roponins q.6h. x2 along with CK and CK-MB, given lack of adequate clearance troponins in the settin g of renal failure. 3. Continue the patient's gentle Lasix diuresis. 4. Continue the patient's baseline Toprol and Diovan for control of blood pressure and heart rate a s well as hydralazine. 5. Follow the patient's blood sugars closely and continue to check serial EKGs to assess for any si gnificant ongoing changes. Thank you for allowing me to take part in the care of this patient. I will continue to follow along more closely with you with further recommendations to be made as the patient progresses through her inpatient hospital clinical course. Dictated By: DELFINA EWING/JONY Conf#: [id number] DID#: [id number] CC: FRANCOIS COLES MD;*EndCC*
[2016-05-25 19:39] LABS: CREATINE KINASE < 20 IU/L (23-200)
[2016-05-25 19:40] LABS: CK-MB 0.62 ng/ml (0.0-2.4)
--- NOTE | 2016-05-25 19:42 | QN ---
Documentation Comment [id number] LUCAS SANTIAGO MD May 25, 2016 19:42
[2016-05-25 19:44] LABS: TROPONIN-I < 0.012 ng/ml (0.00-0.12)
[2016-05-25 20:08] VITALS: BP 145/67; RESP 18
--- NOTE | 2016-05-25 20:24 | HP ---
DATE OF ADMISSION: 05/25/2016 HISTORY OF PRESENT ILLNESS: The patient is a 65-year-old female who was recently discharged from this hospital with diagnosis of congestive heart failure. The patient has acute systolic heart failure, diabetes mellitus, hypertension, pacemaker placement, presented back with shortness of breath. The patient noted to have lung congestion and Dr. Miranda initially saw this patient and also consulted Dr. Gavin per Dr. Miranda. The patient is being admitted for further management. PAST MEDICAL HISTORY: Please review the old chart. Briefly, systolic heart failure, diabetes mellitus, hypertension, pacemaker placement, anemia, CKD, noncompliance. The patient's other history includes history of AICD device placement. ALLERGY HISTORY: SULFAMETHOXAZOLE, TRIMETHOPRIM. SOCIAL HISTORY: Negative. FAMILY HISTORY: Negative. MEDICATION HISTORY: Patient is on: 1. Amlodipine. 2. Calcium carbonate. 3. Lasix. 4. Glipizide. 5. Hydralazine. 6. Metformin. 7. Metoprolol. 8. Januvia. 9. Diovan. REVIEW OF SYSTEMS: HEENT: Unremarkable. RESPIRATORY: short of breath. CARDIOVASCULAR: No chest pain. ABDOMEN: Unremarkable. PHYSICAL EXAMINATION: GENERAL: The patient is awake, alert, not in any acute respiratory distress. VITAL SIGNS: Pulse 70, blood pressure 112/95. HEAD: Atraumatic, normocephalic. Pupils equal, reactive to light. NECK: Supple. No JVD. LUNGS: Clear anteriorly with a few rhonchi at bases. CARDIOVASCULAR: S1, S2 normal. ABDOMEN: Soft. Bowel sounds present. No palpable mass. EXTREMITIES: No cyanosis, clubbing, or edema. CENTRAL NERVOUS SYSTEM: The patient is awake, alert, no deficit. The patient has AICD in the left chest. LABORATORY DATA: Hematocrit 35.3, BUN 36, creatinine 1.21, potassium 5.1. IMPRESSION: Patient has pulmonary edema, elevated BNP, hypertension, diabetes mellitus, hypercalcemia, diabetes mellitus noncompliance, atherosclerotic heart disease, dyslipidemia, automatic implantable cardioverter defibrillator device placement, history of congestive heart failure, history of anemia. PLAN: At this point is to follow recommendations from cardiology. The patient is currently on aspirin, Lovenox, Lasix, metoprolol, Januvia. Patient is on Tradjenta, Protonix, calcium, metformin, Diovan, insulin, Lasix, Zofran, hydralazine. The patient's electrolytes will be monitored. Dictated By: LUCAS RODRIGUEZ/JONY Conf#: [id number] DID#: [id number]
[2016-05-25 20:27] VITALS: PULSE 70
[2016-05-25] MEDS: metFORMIN 500 MG TAB PO SCH (21:24)
[2016-05-25] MEDS: CALCIUM CARBONATE 1.25 GM TAB PO SCH (21:24)
[2016-05-25] MEDS: VALSARTAN 80 MG TAB PO SCH (21:24)
[2016-05-25] MEDS: FUROSEMIDE 20 MG INJ IV SCH (21:28)
[2016-05-25] MEDS: INSULIN GLARGINE [LANtus] 3 ML PEN SC SCH (21:30)
[2016-05-26] VITALS (12 sets, daily range): BP systolic 115–163; BP diastolic 59–82; PULSE 70; RESP 18–20
[2016-05-26] MEDS: PANTOPRAZOLE (EC) 40 MG TAB PO SCH (05:25)
[2016-05-26 08:05] LABS: CK-MB 0.38 ng/ml (0.0-2.4)
[2016-05-26] MEDS: FUROSEMIDE 20 MG INJ IV SCH ×2 (08:06→21:25)
[2016-05-26] MEDS: INSULIN ASPART [NOVOLOG] 3 ML PEN SC SCH ×4 (08:08→21:42)
[2016-05-26 08:12] LABS: TROPONIN-I 0.025 ng/ml (0.00-0.12)
[2016-05-26] MEDS: FUROSEMIDE 40 MG TAB PO SCH (08:13)
[2016-05-26 08:14] LABS: BASOPHILS % 0.3 % (0.0-2.0); EOSINOPHILS # 0.2 10^3/ul (0.0-0.5); EOSINOPHILS % 3.5 % (0.0-7.0); HEMATOCRIT 34.5 % (37.0-47.0); HEMOGLOBIN 11.4 g/dl (12.0-16.0); LYMPHOCYTES # 1.2 10^3/ul (0.8-2.9); LYMPHOCYTES % 17.1 % (15.0-51.0); MEAN CORPUSCULAR HEMOGLOBIN 29.2 pg (29.0-33.0); MEAN CORPUSCULAR HGB CONC 32.8 g/dl (32.0-37.0); MEAN CORPUSCULAR VOLUME 88.9 fl (82.0-101.0); MEAN PLATELET VOLUME 10.2 fl (7.4-10.4); MONOCYTE # 0.5 10^3/ul (0.3-0.9); MONOCYTES % 7.6 % (0.0-11.0); NEUTROPHIL # 4.9 10^3/ul (1.6-7.5); NEUTROPHILS % 71.5 % (39.0-77.0); PLATELET COUNT 242 10^3/UL (140-440); RED BLOOD COUNT 3.89 10^6/ul (4.20-5.40); RED CELL DISTRIBUTION WIDTH 15.7 % (11.5-14.5); UNCORRECTED WBC 6.9 10^3/ul (4.8-10.8); WHITE BLOOD COUNT 6.9 10^3/ul (4.8-10.8)
[2016-05-26 08:30] LABS: CREATINE KINASE < 20 IU/L (23-200)
[2016-05-26 08:31] LABS: CONDITION 1; LH ANALYZER COMMENTS 1
[2016-05-26] MEDS: ASPIRIN 81 MG TAB PO SCH (08:38)
[2016-05-26] MEDS: CALCIUM CARBONATE 1.25 GM TAB PO SCH ×2 (08:39→21:26)
[2016-05-26] MEDS: metFORMIN 500 MG TAB PO SCH ×2 (08:39→21:26)
[2016-05-26] MEDS: LINAGLIPTIN 5 MG TABLET PO SCH (08:40)
[2016-05-26] MEDS: METOPROLOL (XL) 25 MG TAB PO SCH (08:40)
[2016-05-26] MEDS: ENOXAPARIN 40 MG/0.4 ML SYG SC SCH (08:42)
[2016-05-26] MEDS ORDERED: INFLUENZA VIRUS VACCINE 0.5 ML (DISPENSING) IM* ONE (09:00)
[2016-05-26 09:07] LABS: POTASSIUM 4.3 mmol/L (3.5-5.1)
[2016-05-26 09:09] LABS: CREATININE 1.2 mg/dl (0.44-1.00)
[2016-05-26 09:10] LABS: CALCIUM 9.8 mg/dl (8.4-10.2); CHOL/HDL RATIO 2.5 RATIO; MAGNESIUM 1.3 mg/dl (1.7-2.5)
[2016-05-26 12:38] LABS: THYROID STIMULATING HORMONE 1.22 MIU/L (0.465-4.680)
--- NOTE | 2016-05-26 17:47 | PN ---
Date/Time of Note Date/Time of Note DATE: 05/26/16 TIME: 17:45 Assessment/Plan VTE Prophylaxis VTE Prophylaxis Intervention: other Lines/Catheters IV Catheter Type (from Nrs): Saline Lock Urinary Cath still in place: No Assessment/Plan Chief Complaint/Hosp Course ckd htn pul edema anemia edema+ plan per cardio Problems: Subjective 24 Hr Interval Summary Respiratory: no complaints Cardiovascular: chest pain, no complaints, No edema Exam/Review of Systems Vital Signs Vitals Vital Signs Date Time Temp Pulse Resp B/P Pulse Ox O2 Delivery O2 Flow Rate FiO2 05/26/16 16:15 97.8 70 20 119/60 97 05/26/16 08:00 Nasal Cannula 05/25/16 15:06 2.0 Intake and Output 05/25/16 05/25/16 05/26/16 15:00 23:00 07:00 Intake Total 240 ml 700 ml Balance 240 ml 700 ml Exam Neck: supple Cardiovascular: nl pulses Gastrointestinal: soft Results Result Diagram: 05/26/16 0640 05/26/16 0640 Results 24 hrs Laboratory Tests Test 05/25/16 18:45 05/25/16 21:21 05/26/16 06:40 05/26/16 08:03 Creatine Kinase < 20 L < 20 L Creatine Kinase Index Creatinine Kinase MB (Mass) 0.62 0.38 Troponin I < 0.012 0.025 Bedside Glucose 309 H 157 Anion Gap 13 Basophils # 0.0 Basophils % 0.3 Blood Morphology Comment Blood Urea Nitrogen 35 H Calcium Level 9.8 Carbon Dioxide Level 31 Chloride Level 96 L Cholesterol Level 97 L Cholesterol/HDL Ratio 2.5 Creatinine 1.20 H Eosinophils # 0.2 Eosinophils % 3.5 Glucose Level 145 # HDL Cholesterol 38 Hematocrit 34.5 L Hemoglobin 11.4 L LDL Cholesterol, Calculated 38 Lymphocytes # 1.2 Lymphocytes % 17.1 Magnesium Level 1.3 L Mean Corpuscular Hemoglobin 29.2 Mean Corpuscular Hemoglobin Concent 32.8 Mean Corpuscular Volume 88.9 Mean Platelet Volume 10.2 Monocytes # 0.5 Monocytes % 7.6 Neutrophils # 4.9 Neutrophils % 71.5 Nucleated Red Blood Cells # 0.0 Nucleated Red Blood Cells % 0.0 Platelet Count 242 Potassium Level 4.3 Red Blood Count 3.89 L Red Cell Distribution Width 15.7 H Sodium Level 136 Thyroid Stimulating Hormone (TSH) 1.220 Triglycerides Level 106 White Blood Count 6.9 Test 05/26/16 12:20 Bedside Glucose 258 H Medications Medications Current Medications Lorazepam (Ativan) 0.5 mg Q8H PRN PO ANXIETY; Start 05/25/16 at 11:30 Ondansetron HCl (Zofran Tab) 4 mg Q6H PRN PO NAUSEA AND/OR VOMITING; Start 05/25 at 11:30 Aspirin (Aspirin) 81 mg DAILY PO Last administered on 05/26/16 08:38; Admin Dose 81 MG; Start 05/26/16 at 09:00 Furosemide (Lasix) 20 mg Q12H IV Last administered on 05/26/16 08:06; Admin Dose 20 MG; Start 05/25/16 at 19:30; Stop 05/27/16 at 07:31 Nitroglycerin (Nitroglycerin (Sl Tab) 0.4 Mg) 1 tab Q5M PRN SL CHEST PAIN; Start 05/25/16 at 11:30 Acetaminophen (Tylenol Tab) 650 mg Q6H PRN PO PAIN LEVEL 1-3 OR FEVER; Start at 11:30 Docusate Sodium (Colace) 100 mg Q12H PRN PO CONSTIPATION Last administered on 05:25; Admin Dose 100 MG; Start 05/25/16 at 11:30 Pantoprazole (Protonix Tab) 40 mg DAILY@06 PO Last administered on 05/26/16 05: 25; Admin Dose 40 MG; Start 05/26/16 at 06:00 Enoxaparin Sodium (Lovenox) 40 mg DAILY SC Last administered on 05/26/16 08:42 ; Admin Dose 40 MG; Start 05/26/16 at 09:00 Calcium Carbonate (Oyster Shell Calcium) 1 gm BID PO Last administered on 08:39; Admin Dose 1 GM; Start 05/25/16 at 21:00 Furosemide (Lasix) 40 mg DAILY PO ; Start 05/26/16 at 09:00 Hydralazine HCl (Apresoline) 25 mg TID PO Last administered on 05/26/16 15:36; Admin Dose 25 MG; Start 05/25/16 at 13:00 Metformin HCl (Glucophage) 1,000 mg BID PO Last administered on 05/26/16 08:39 ; Admin Dose 1,000 MG; Start 05/25/16 at 21:00 Metoprolol Succinate (Toprol Xl) 25 mg DAILY PO Last administered on 05/26/16 08:40; Admin Dose 25 MG; Start 05/26/16 at 09:00 Valsartan (Diovan) 120 mg QHS PO Last administered on 05/25/16 21:24; Admin Dose 120 MG; Start 05/25/16 at 21:00 Linagliptin (Tradjenta) 5 mg DAILY PO Last administered on 05/26/16 08:40; Admin Dose 5 MG; Start 05/26/16 at 09:00 Insulin Glargine (Lantus) 5 unit DAILY@20 SC Last administered on 05/25/16 21: 30; Admin Dose 5 UNIT; Start 05/25/16 at 20:00 Miscellaneous Information 1 ea NOTE XX ; Start 05/25/16 at 13:00 Glucose (Glutose) 15 gm Q15M PRN PO DECREASED GLUCOSE; Start 05/25/16 at 13:00 Glucose (Glutose) 22.5 gm Q15M PRN PO DECREASED GLUCOSE; Start 05/25/16 at 13:00 Dextrose (D50w Syringe) 25 ml Q15M PRN IV DECREASED GLUCOSE; Start 05/25/16 at 13:00 Dextrose (D50w Syringe) 50 ml Q15M PRN IV DECREASED GLUCOSE; Start 05/25/16 at 13:00 Glucagon (Glucagen) 1 mg Q15M PRN IM DECREASED GLUCOSE; Start 05/25/16 at 13:00 Glucose (Glutose) 15 gm Q15M PRN BUCCAL DECREASED GLUCOSE; Start 05/25/16 at 13: 00 LUCAS SANTIAGO MD May 26, 2016 17:47
--- NOTE | 2016-05-26 17:54 | CONS ---
Date/Time of Note Date/Time of Note DATE: 05/26/16 TIME: 17:50 Assessment/Plan Assessment/Plan Chief Complaint/Hosp Course IMPRESSION: 1. Congestive heart failure exacerbation, systolic by most recent echo, acute on chronic.-Negative troponin x 3 2. Cardiomyopathy with decreased left ventricular ejection fraction, last being approximately 40 to 45% by echo in 02/2016. 3. Permanent pacemaker. 4. Hypertension. 5. Renal insufficiency/failure. 6. Anemia. 7. Generalized lethargy. 8. Diabetes mellitus. Recc: -tele -serial ecg's -Continue lasix diuresis -Continue BB/hydralazine/ACEI/diovan -Continue asa -Follow volume status closely Problems: Consultation Date/Type/Reason Admit Date/Time May 25, 2016 at 09:34 Initial Consult Date 05/25/2015 Type of Consultation: Cardiology Reason for Consultation chf Referring Provider: FRANCOIS COLES MD Exam/Review of Systems Vital Signs Vitals Vital Signs Date Time Temp Pulse Resp B/P Pulse Ox O2 Delivery O2 Flow Rate FiO2 05/26/16 16:15 97.8 70 20 119/60 97 05/26/16 08:00 Nasal Cannula 05/25/16 15:06 2.0 Intake and Output 05/25/16 05/25/16 05/26/16 15:00 23:00 07:00 Intake Total 240 ml 700 ml Balance 240 ml 700 ml Exam Review of Systems: CONSTITUTIONAL: No fevers, chills. PULMONARY: No sob CARDIOVASCULAR: No chest pain/palpitations GASTROINTESTINAL: No nausea/vomiting. GENITOURINARY: No hematuria/dysuria. MUSCULOSKELETAL: No myagias/arthalgias. PSYCHIATRIC: The patient denies depression. NEUROLOGIC: lethargic Constitutional: alert, oriented Psych: no complaints Head: normocephalic ENMT: mucosa pink and moist Neck: jvd (9 cm water), supple Respiratory: diminished breath sounds (at bases/B) Cardiovascular: regular rate and rhythm Gastrointestinal: non-tender, soft Musculoskeletal: muscle tone (normal) Extremities: edema (none) Neurological: other (No focal deficits) Results Result Diagram: 05/26/16 0640 05/26/16 0640 Results 24 hrs Laboratory Tests Test 05/25/16 18:45 05/25/16 21:21 05/26/16 06:40 05/26/16 08:03 Creatine Kinase < 20 L < 20 L Creatine Kinase Index Creatinine Kinase MB (Mass) 0.62 0.38 Troponin I < 0.012 0.025 Bedside Glucose 309 H 157 Anion Gap 13 Basophils # 0.0 Basophils % 0.3 Blood Morphology Comment Blood Urea Nitrogen 35 H Calcium Level 9.8 Carbon Dioxide Level 31 Chloride Level 96 L Cholesterol Level 97 L Cholesterol/HDL Ratio 2.5 Creatinine 1.20 H Eosinophils # 0.2 Eosinophils % 3.5 Glucose Level 145 # HDL Cholesterol 38 Hematocrit 34.5 L Hemoglobin 11.4 L LDL Cholesterol, Calculated 38 Lymphocytes # 1.2 Lymphocytes % 17.1 Magnesium Level 1.3 L Mean Corpuscular Hemoglobin 29.2 Mean Corpuscular Hemoglobin Concent 32.8 Mean Corpuscular Volume 88.9 Mean Platelet Volume 10.2 Monocytes # 0.5 Monocytes % 7.6 Neutrophils # 4.9 Neutrophils % 71.5 Nucleated Red Blood Cells # 0.0 Nucleated Red Blood Cells % 0.0 Platelet Count 242 Potassium Level 4.3 Red Blood Count 3.89 L Red Cell Distribution Width 15.7 H Sodium Level 136 Thyroid Stimulating Hormone (TSH) 1.220 Triglycerides Level 106 White Blood Count 6.9 Test 05/26/16 12:20 Bedside Glucose 258 H Medications Medications Current Medications Lorazepam (Ativan) 0.5 mg Q8H PRN PO ANXIETY; Start 05/25/16 at 11:30 Ondansetron HCl (Zofran Tab) 4 mg Q6H PRN PO NAUSEA AND/OR VOMITING; Start 05/25 at 11:30 Aspirin (Aspirin) 81 mg DAILY PO Last administered on 05/26/16 08:38; Admin Dose 81 MG; Start 05/26/16 at 09:00 Furosemide (Lasix) 20 mg Q12H IV Last administered on 05/26/16 08:06; Admin Dose 20 MG; Start 05/25/16 at 19:30; Stop 05/27/16 at 07:31 Nitroglycerin (Nitroglycerin (Sl Tab) 0.4 Mg) 1 tab Q5M PRN SL CHEST PAIN; Start 05/25/16 at 11:30 Acetaminophen (Tylenol Tab) 650 mg Q6H PRN PO PAIN LEVEL 1-3 OR FEVER; Start at 11:30 Docusate Sodium (Colace) 100 mg Q12H PRN PO CONSTIPATION Last administered on 05:25; Admin Dose 100 MG; Start 05/25/16 at 11:30 Pantoprazole (Protonix Tab) 40 mg DAILY@06 PO Last administered on 05/26/16 05: 25; Admin Dose 40 MG; Start 05/26/16 at 06:00 Enoxaparin Sodium (Lovenox) 40 mg DAILY SC Last administered on 05/26/16 08:42 ; Admin Dose 40 MG; Start 05/26/16 at 09:00 Calcium Carbonate (Oyster Shell Calcium) 1 gm BID PO Last administered on 08:39; Admin Dose 1 GM; Start 05/25/16 at 21:00 Furosemide (Lasix) 40 mg DAILY PO ; Start 05/26/16 at 09:00 Hydralazine HCl (Apresoline) 25 mg TID PO Last administered on 05/26/16 15:36; Admin Dose 25 MG; Start 05/25/16 at 13:00 Metformin HCl (Glucophage) 1,000 mg BID PO Last administered on 05/26/16 08:39 ; Admin Dose 1,000 MG; Start 05/25/16 at 21:00 Metoprolol Succinate (Toprol Xl) 25 mg DAILY PO Last administered on 05/26/16 08:40; Admin Dose 25 MG; Start 05/26/16 at 09:00 Valsartan (Diovan) 120 mg QHS PO Last administered on 05/25/16 21:24; Admin Dose 120 MG; Start 05/25/16 at 21:00 Linagliptin (Tradjenta) 5 mg DAILY PO Last administered on 05/26/16 08:40; Admin Dose 5 MG; Start 05/26/16 at 09:00 Insulin Glargine (Lantus) 5 unit DAILY@20 SC Last administered on 05/25/16 21: 30; Admin Dose 5 UNIT; Start 05/25/16 at 20:00 Miscellaneous Information 1 ea NOTE XX ; Start 05/25/16 at 13:00 Glucose (Glutose) 15 gm Q15M PRN PO DECREASED GLUCOSE; Start 05/25/16 at 13:00 Glucose (Glutose) 22.5 gm Q15M PRN PO DECREASED GLUCOSE; Start 05/25/16 at 13:00 Dextrose (D50w Syringe) 25 ml Q15M PRN IV DECREASED GLUCOSE; Start 05/25/16 at 13:00 Dextrose (D50w Syringe) 50 ml Q15M PRN IV DECREASED GLUCOSE; Start 05/25/16 at 13:00 Glucagon (Glucagen) 1 mg Q15M PRN IM DECREASED GLUCOSE; Start 05/25/16 at 13:00 Glucose (Glutose) 15 gm Q15M PRN BUCCAL DECREASED GLUCOSE; Start 05/25/16 at 13: 00 DELFINA LANDAVERDE May 26, 2016 17:54
--- NOTE | 2016-05-26 19:19 | RADRPT ---
Vent Rate: 74 bpm RR Interval: 0 msec [place] Interval: 432 msec QRS Duration: 212 msec QT Interval: 522 msec QTC Interval: 579 msec P-R-T [place]: 0 - -72 - 96 degrees Electronic ventricular pacemaker Electronically Signed By: Sebastian Giron [id number]
[2016-05-26] MEDS: VALSARTAN 80 MG TAB PO SCH (21:26)
[2016-05-26] MEDS: INSULIN GLARGINE [LANtus] 3 ML PEN SC SCH (21:41)
[2016-05-27] VITALS (11 sets, daily range): BP systolic 131–182; BP diastolic 62–88; PULSE 69–70; RESP 18–20
[2016-05-27] MEDS: PANTOPRAZOLE (EC) 40 MG TAB PO SCH (06:04)
[2016-05-27] MEDS: FUROSEMIDE 20 MG INJ IV SCH (06:10)
[2016-05-27] MEDS ORDERED: INFLUENZA VIRUS VACCINE 0.5 ML (DISPENSING) IM* ONE (06:30)
[2016-05-27] MEDS: INSULIN ASPART [NOVOLOG] 3 ML PEN SC SCH ×2 (08:00→12:32)
[2016-05-27] MEDS: METOPROLOL (XL) 25 MG TAB PO SCH (09:34)
[2016-05-27] MEDS: LINAGLIPTIN 5 MG TABLET PO SCH (09:35)
[2016-05-27] MEDS: CALCIUM CARBONATE 1.25 GM TAB PO SCH (09:35)
[2016-05-27] MEDS: ASPIRIN 81 MG TAB PO SCH (09:36)
[2016-05-27] MEDS: FUROSEMIDE 40 MG TAB PO SCH (09:37)
[2016-05-27] MEDS: ENOXAPARIN 40 MG/0.4 ML SYG SC SCH (09:38)
[2016-05-27] MEDS: metFORMIN 500 MG TAB PO SCH (09:39)
--- NOTE | 2016-05-27 15:58 | CONS ---
Date/Time of Note Date/Time of Note DATE: 05/27/16 TIME: 15:56 Assessment/Plan Assessment/Plan Chief Complaint/Hosp Course IMPRESSION: 1. Congestive heart failure exacerbation, systolic by most recent echo, acute on chronic.-Negative troponin x 3 2. Cardiomyopathy with decreased left ventricular ejection fraction, last being approximately 40 to 45% by echo in 02/2016. 3. Permanent pacemaker-no signs of dysfunction at this time 4. Hypertension. 5. Renal insufficiency/failure. 6. Anemia. 7. Generalized lethargy. 8. Diabetes mellitus. Recc: -tele -serial ecg's -Continue lasix PO now -Continue BB/hydralazine/ACEI/diovan -Continue asa -Follow volume status closely Problems: Consultation Date/Type/Reason Admit Date/Time May 25, 2016 at 09:34 Initial Consult Date 05/25/2015 Type of Consultation: Cardiology Reason for Consultation PPM Referring Provider: FRANCOIS COLES MD Exam/Review of Systems Vital Signs Vitals Vital Signs Date Time Temp Pulse Resp B/P Pulse Ox O2 Delivery O2 Flow Rate FiO2 05/27/16 15:51 97.9 70 18 144/67 98 05/27/16 08:00 Nasal Cannula 05/25/16 15:06 2.0 Intake and Output 05/26/16 05/26/16 05/27/16 15:00 23:00 07:00 Intake Total 600 ml Output Total 1000 ml Balance -400 ml Exam Review of Systems: CONSTITUTIONAL: No fevers, chills. PULMONARY: No sob CARDIOVASCULAR: No chest pain/palpitations GASTROINTESTINAL: No nausea/vomiting. GENITOURINARY: No hematuria/dysuria. MUSCULOSKELETAL: No myagias/arthalgias. PSYCHIATRIC: The patient denies depression. NEUROLOGIC: No weakness Constitutional: alert Psych: no complaints Head: normocephalic ENMT: mucosa pink and moist Neck: jvd (8-9 cm water), supple Respiratory: diminished breath sounds (at bases/B) Cardiovascular: regular rate and rhythm Gastrointestinal: non-tender, soft Musculoskeletal: muscle tone Extremities: edema (none) Neurological: other (NO focal deficits) Results Result Diagram: 05/26/16 0640 05/26/16 0640 Results 24 hrs Laboratory Tests Test 05/26/16 18:24 05/26/16 21:24 05/27/16 07:48 05/27/16 07:55 Bedside Glucose 212 249 H 127 134 Test 05/27/16 12:27 Bedside Glucose 249 H Medications Medications Current Medications Lorazepam (Ativan) 0.5 mg Q8H PRN PO ANXIETY; Start 05/25/16 at 11:30 Ondansetron HCl (Zofran Tab) 4 mg Q6H PRN PO NAUSEA AND/OR VOMITING; Start 05/25 at 11:30 Aspirin (Aspirin) 81 mg DAILY PO Last administered on 05/27/16 09:36; Admin Dose 81 MG; Start 05/26/16 at 09:00 Nitroglycerin (Nitroglycerin (Sl Tab) 0.4 Mg) 1 tab Q5M PRN SL CHEST PAIN; Start 05/25/16 at 11:30 Acetaminophen (Tylenol Tab) 650 mg Q6H PRN PO PAIN LEVEL 1-3 OR FEVER; Start at 11:30 Docusate Sodium (Colace) 100 mg Q12H PRN PO CONSTIPATION Last administered on 05:25; Admin Dose 100 MG; Start 05/25/16 at 11:30 Pantoprazole (Protonix Tab) 40 mg DAILY@06 PO Last administered on 05/27/16 06: 04; Admin Dose 40 MG; Start 05/26/16 at 06:00 Enoxaparin Sodium (Lovenox) 40 mg DAILY SC Last administered on 05/27/16 09:38 ; Admin Dose 40 MG; Start 05/26/16 at 09:00 Calcium Carbonate (Oyster Shell Calcium) 1 gm BID PO Last administered on 09:35; Admin Dose 1 GM; Start 05/25/16 at 21:00 Furosemide (Lasix) 40 mg DAILY PO Last administered on 05/27/16 09:37; Admin Dose 40 MG; Start 05/26/16 at 09:00 Hydralazine HCl (Apresoline) 25 mg TID PO Last administered on 05/27/16 12:53; Admin Dose 25 MG; Start 05/25/16 at 13:00 Metformin HCl (Glucophage) 1,000 mg BID PO Last administered on 05/27/16 09:39 ; Admin Dose 1,000 MG; Start 05/25/16 at 21:00 Metoprolol Succinate (Toprol Xl) 25 mg DAILY PO Last administered on 05/27/16 09:34; Admin Dose 25 MG; Start 05/26/16 at 09:00 Valsartan (Diovan) 120 mg QHS PO Last administered on 05/26/16 21:26; Admin Dose 120 MG; Start 05/25/16 at 21:00 Linagliptin (Tradjenta) 5 mg DAILY PO Last administered on 05/27/16 09:35; Admin Dose 5 MG; Start 05/26/16 at 09:00 Insulin Glargine (Lantus) 5 unit DAILY@20 SC Last administered on 05/26/16 21: 41; Admin Dose 5 UNIT; Start 05/25/16 at 20:00 Miscellaneous Information 1 ea NOTE XX ; Start 05/25/16 at 13:00 Glucose (Glutose) 15 gm Q15M PRN PO DECREASED GLUCOSE; Start 05/25/16 at 13:00 Glucose (Glutose) 22.5 gm Q15M PRN PO DECREASED GLUCOSE; Start 05/25/16 at 13:00 Dextrose (D50w Syringe) 25 ml Q15M PRN IV DECREASED GLUCOSE; Start 05/25/16 at 13:00 Dextrose (D50w Syringe) 50 ml Q15M PRN IV DECREASED GLUCOSE; Start 05/25/16 at 13:00 Glucagon (Glucagen) 1 mg Q15M PRN IM DECREASED GLUCOSE; Start 05/25/16 at 13:00 Glucose (Glutose) 15 gm Q15M PRN BUCCAL DECREASED GLUCOSE; Start 05/25/16 at 13: 00 DELFINA LANDAVERDE May 27, 2016 15:58
--- NOTE | 2016-05-27 16:21 | PDOCDIS ---
Discharge Instructions CONDITION Patient Condition: Stable ACTIVITY: Activity Restrictions: Slowly Increase Activity FOLLOW UP/APPOINTMENTS Appointments f/u dr santiago [address] vickers 1 wk LUCAS SANTIAGO MD May 27, 2016 16:20
[2016-05-27] MEDS ORDERED: HYDR-3671 PO (16:23)
[2016-05-27] MEDS ORDERED: FURO40SO PO (16:23)
--- NOTE | 2016-05-27 16:25 | PN ---
Date/Time of Note Date/Time of Note DATE: 05/27/16 TIME: 16:25 Assessment/Plan VTE Prophylaxis VTE Prophylaxis Intervention: other Lines/Catheters IV Catheter Type (from Nrs): Saline Lock Urinary Cath still in place: No Assessment/Plan Chief Complaint/Hosp Course ckd htn pul edema anemia edemaneg plan per cardio home Problems: Subjective 24 Hr Interval Summary Respiratory: no complaints Cardiovascular: no complaints Exam/Review of Systems Vital Signs Vitals Vital Signs Date Time Temp Pulse Resp B/P Pulse Ox O2 Delivery O2 Flow Rate FiO2 05/27/16 16:02 70 05/27/16 15:51 97.9 18 144/67 98 05/27/16 08:00 Nasal Cannula 05/25/16 15:06 2.0 Intake and Output 05/26/16 05/26/16 05/27/16 15:00 23:00 07:00 Intake Total 600 ml Output Total 1000 ml Balance -400 ml Exam Respiratory: clear to auscultation Cardiovascular: regular rate and rhythm Gastrointestinal: soft Musculoskeletal: nl extremities to inspection Results Result Diagram: 05/26/16 0640 05/26/16 0640 Results 24 hrs Laboratory Tests Test 05/26/16 18:24 05/26/16 21:24 05/27/16 07:48 05/27/16 07:55 Bedside Glucose 212 249 H 127 134 Test 05/27/16 12:27 Bedside Glucose 249 H Medications Medications Current Medications Lorazepam (Ativan) 0.5 mg Q8H PRN PO ANXIETY; Start 05/25/16 at 11:30 Ondansetron HCl (Zofran Tab) 4 mg Q6H PRN PO NAUSEA AND/OR VOMITING; Start 05/25 at 11:30 Aspirin (Aspirin) 81 mg DAILY PO Last administered on 05/27/16 09:36; Admin Dose 81 MG; Start 05/26/16 at 09:00 Nitroglycerin (Nitroglycerin (Sl Tab) 0.4 Mg) 1 tab Q5M PRN SL CHEST PAIN; Start 05/25/16 at 11:30 Acetaminophen (Tylenol Tab) 650 mg Q6H PRN PO PAIN LEVEL 1-3 OR FEVER; Start at 11:30 Docusate Sodium (Colace) 100 mg Q12H PRN PO CONSTIPATION Last administered on 05:25; Admin Dose 100 MG; Start 05/25/16 at 11:30 Pantoprazole (Protonix Tab) 40 mg DAILY@06 PO Last administered on 05/27/16 06: 04; Admin Dose 40 MG; Start 05/26/16 at 06:00 Enoxaparin Sodium (Lovenox) 40 mg DAILY SC Last administered on 05/27/16 09:38 ; Admin Dose 40 MG; Start 05/26/16 at 09:00 Calcium Carbonate (Oyster Shell Calcium) 1 gm BID PO Last administered on 09:35; Admin Dose 1 GM; Start 05/25/16 at 21:00 Furosemide (Lasix) 40 mg DAILY PO Last administered on 05/27/16 09:37; Admin Dose 40 MG; Start 05/26/16 at 09:00 Hydralazine HCl (Apresoline) 25 mg TID PO Last administered on 05/27/16 12:53; Admin Dose 25 MG; Start 05/25/16 at 13:00 Metformin HCl (Glucophage) 1,000 mg BID PO Last administered on 05/27/16 09:39 ; Admin Dose 1,000 MG; Start 05/25/16 at 21:00 Metoprolol Succinate (Toprol Xl) 25 mg DAILY PO Last administered on 05/27/16 09:34; Admin Dose 25 MG; Start 05/26/16 at 09:00 Valsartan (Diovan) 120 mg QHS PO Last administered on 05/26/16 21:26; Admin Dose 120 MG; Start 05/25/16 at 21:00 Linagliptin (Tradjenta) 5 mg DAILY PO Last administered on 05/27/16 09:35; Admin Dose 5 MG; Start 05/26/16 at 09:00 Insulin Glargine (Lantus) 5 unit DAILY@20 SC Last administered on 05/26/16 21: 41; Admin Dose 5 UNIT; Start 05/25/16 at 20:00 Miscellaneous Information 1 ea NOTE XX ; Start 05/25/16 at 13:00 Glucose (Glutose) 15 gm Q15M PRN PO DECREASED GLUCOSE; Start 05/25/16 at 13:00 Glucose (Glutose) 22.5 gm Q15M PRN PO DECREASED GLUCOSE; Start 05/25/16 at 13:00 Dextrose (D50w Syringe) 25 ml Q15M PRN IV DECREASED GLUCOSE; Start 05/25/16 at 13:00 Dextrose (D50w Syringe) 50 ml Q15M PRN IV DECREASED GLUCOSE; Start 05/25/16 at 13:00 Glucagon (Glucagen) 1 mg Q15M PRN IM DECREASED GLUCOSE; Start 05/25/16 at 13:00 Glucose (Glutose) 15 gm Q15M PRN BUCCAL DECREASED GLUCOSE; Start 05/25/16 at 13: 00 LUCAS SANTIAGO MD May 27, 2016 16:25
== END 2016-05-27 18:12 | disposition home or self-care (01) | DRG 292 ==
LOC: FTE 02:55 → MS4 09:34
PROVIDERS: ADMIT Internal Medicine Nephrology; ATTEND Internal Medicine Nephrology
PROC: 3E00X4Z Introduction of Serum, Toxoid and Vaccine into Skin and Mucous Membranes, External Approach (ICD-10-PCS; principal; 2016-05-27)
DX: I50.23 Acute on chronic systolic (congestive) heart failure (principal); I42.9 Cardiomyopathy, unspecified; E11.8 Type 2 diabetes mellitus with unspecified complications; D64.9 Anemia, unspecified; R53.83 Other fatigue; I12.9 Hypertensive chronic kidney disease with stage 1 through stage 4 chronic kidney disease, or unspecified chronic kidney disease; N18.9 Chronic kidney disease, unspecified; Z23 Encounter for immunization; Z95.0 Presence of cardiac pacemaker
CPT/HCPCS: 36415; 71010; 80048; 80053; 80061; 82550; 82553; 82962; 83735; 83880; 84443; 84484; 85025; 85610; 85730; 90686; 93005; 96372; 96374; J1940; J1650; J1815

== ENCOUNTER 2016-10-26 16:29 | Inpatient (IN) | payer MEDICARE, OTHER ==
[~2016-10-26] VITALS: Ht 162.6 cm; Wt 99.1 kg
[~2016-10-26 16:29] MED LIST changes: +FURO40SO PO
[2016-10-26] MEDS ORDERED: ACETAMINOPHEN 325 MG TAB PO PRN (17:30)
[2016-10-26] MEDS ORDERED: ONDANSETRON 4 MG INJ IV PRN (17:30)
[2016-10-26 17:59] VITALS: Ht 162.6 cm; Wt 99.1 kg
[2016-10-26] MEDS ORDERED: GLUCOSE GEL 15 GRAM TUBE PO PRN ×2 (18:00)
[2016-10-26] MEDS ORDERED: GLUCOSE GEL 15 GRAM TUBE BUCCAL PRN (18:00)
[2016-10-26] MEDS ORDERED: DEXTROSE 50% 50 ML SYRINGE IV PRN ×2 (18:00)
[2016-10-26] MEDS ORDERED: GLUCAGON 1 MG INJ IM PRN (18:00)
[2016-10-26 18:41] LABS: ADD UMIC NO; UR ASCORBIC ACID NEGATIVE (NEGATIVE); UR BILIRUBIN (Dip) NEGATIVE (NEGATIVE); UR BLOOD (Dip) NEGATIVE (NEGATIVE); UR CLARITY CLEAR (CLEAR); UR COLOR YELLOW (YELLOW); UR GLUCOSE (Dip) NEGATIVE (NEGATIVE); UR KETONES (Dip) NEGATIVE (NEGATIVE); UR LEUKOCYTE ESTERASE (Dip) NEGATIVE Leu/ul (NEGATIVE); UR NITRITE (Dip) NEGATIVE (NEGATIVE); UR SPECIFIC GRAVITY (Dip) 1.008 (1.003-1.030); UR TOTAL PROTEIN (Dip) NEGATIVE (NEGATIVE); UR UROBILINOGEN (Dip) NEGATIVE (NEGATIVE)
[2016-10-26] MEDS: INSULIN ASPART [NOVOLOG] 3 ML PEN SC SCH ×2 (18:44→21:18)
[2016-10-26 19:50] VITALS: BP 150/78; RESP 18
--- NOTE | 2016-10-26 20:30 | PN ---
Date/Time of Note Date/Time of Note DATE: 10/26/16 TIME: 20:28 Assessment/Plan VTE Prophylaxis VTE Prophylaxis Intervention: other Lines/Catheters IV Catheter Type (from Nrsg): Saline Lock Assessment/Plan Chief Complaint/Hosp Course A/P ANASARCA HTN DM [facility] S/P FALL ASHD HX CHF PLAN PER ORDER Problems: Subjective 24 Hr Interval Summary Respiratory: shortness of breath Cardiovascular: no complaints Gastrointestinal: no complaints Genitourinary: no complaints Musculoskeletal: bone/joint pain Neurologic: other Exam/Review of Systems Vital Signs Vitals Vital Signs Date Time Temp Pulse Resp B/P Pulse Ox O2 Delivery O2 Flow Rate FiO2 10/26/16 19:50 97.3 71 18 150/78 98 Exam Psych: no complaints Head: normocephalic ENMT: nl external ears & nose Neck: supple Respiratory: clear to auscultation Cardiovascular: regular rate and rhythm Gastrointestinal: non-tender, soft Extremities: edema (+++) 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 02 XX ; Start 10/27/16 at 02:00 Pantoprazole (Protonix Iv) 40 mg DAILY@06 IV ; Start 10/27/16 at 06:00 Ondansetron HCl (Zofran Inj) 4 mg Q6H PRN IV NAUSEA AND/OR VOMITING; Start 10/26 at 17:30 Acetaminophen (Tylenol Tab) 650 mg Q6H PRN PO PAIN AND OR ELEVATED TEMP; Start 10/26/16 at 17:30 Furosemide (Lasix) 40 mg DAILY IV ; Start 10/27/16 at 09:00 Miscellaneous Information 1 ea NOTE XX ; Start 10/26/16 at 18:00 Glucose (Glutose) 15 gm Q15M PRN PO DECREASED GLUCOSE; Start 10/26/16 at 18:00 Glucose (Glutose) 22.5 gm Q15M PRN PO DECREASED GLUCOSE; Start 10/26/16 at 18:00 Dextrose (D50w Syringe) 25 ml Q15M PRN IV DECREASED GLUCOSE; Start 10/26/16 at 18:00 Dextrose (D50w Syringe) 50 ml Q15M PRN IV DECREASED GLUCOSE; Start 10/26/16 at 18:00 Glucagon (Glucagen) 1 mg Q15M PRN IM DECREASED GLUCOSE; Start 10/26/16 at 18:00 Glucose (Glutose) 15 gm Q15M PRN BUCCAL DECREASED GLUCOSE; Start 10/26/16 at 18: 00 Calcium Carbonate (Oyster Shell Calcium) 1 gm BID PO ; Start 10/26/16 at 21:00; Status UNV Glipizide (Glucotrol) 10 mg BID PO ; Start 10/26/16 at 21:00; Status UNV Hydralazine HCl (Apresoline) 25 mg TID PO ; Start 10/26/16 at 21:00; Status UNV Metoprolol Succinate (Toprol Xl) 25 mg DAILY PO ; Start 10/27/16 at 09:00; Status UNV Valsartan (Diovan) 120 mg QHS PO ; Start 10/26/16 at 21:00; Status UNV LUCAS SANTIAGO MD Oct 26, 2016 20:30
[2016-10-26] MEDS ORDERED: MAGNESIUM HYDROXIDE 30ML CUP PO PRN (21:00)
[2016-10-26] MEDS ORDERED: DOCUSATE SODIUM 100 MG CAP PO PRN (21:00)
[2016-10-26] MEDS ORDERED: ACETAMINOPHEN 650 MG SUPP PR PRN (21:00)
[2016-10-26] MEDS ORDERED: BISACODYL (EC) 5 MG TAB PO PRN (21:00)
[2016-10-26] MEDS ORDERED: NACL 0.9% 3 ML SYG IV SCH (21:00)
[2016-10-26 21:02] LABS: PROTEIN/CREAT RATIO 0.43 RATIO
[2016-10-26] MEDS: VALSARTAN 80 MG TAB PO SCH (21:10)
[2016-10-26] MEDS: CALCIUM CARBONATE 1.25 GM TAB PO SCH (21:11)
[2016-10-26] MEDS ORDERED: morphine 2 MG INJ IV PRN (22:00)
[2016-10-26] MEDS: morphine 2 MG INJ IV PRN (22:57)
[2016-10-27] MEDS: ACCU-CHEK XX SCH (01:34)
[2016-10-27] MEDS ORDERED: ACCU-CHEK XX SCH (02:00)
[2016-10-27] MEDS: morphine 2 MG INJ IV PRN (02:57)
[2016-10-27] MEDS ORDERED: PANTOPRAZOLE 40 MG INJ IV SCH (06:00)
[2016-10-27 06:09] LABS: ADD SCAN DIFF NO
[2016-10-27 06:19] LABS: BASOPHIL # 0.1 10^3/ul (0.0-0.1); BASOPHILS % 0.8 % (0.0-2.0); EOSINOPHILS # 0.1 10^3/ul (0.0-0.5); EOSINOPHILS % 1.4 % (0.0-7.0); HEMATOCRIT 36.6 % (37.0-47.0); HEMOGLOBIN 11.4 g/dl (12.0-16.0); LYMPHOCYTES # 1.6 10^3/ul (0.8-2.9); LYMPHOCYTES % 24.1 % (15.0-51.0); MEAN CORPUSCULAR HEMOGLOBIN 29.5 pg (29.0-33.0); MEAN CORPUSCULAR HGB CONC 31.1 g/dl (32.0-37.0); MEAN CORPUSCULAR VOLUME 94.8 fl (82.0-101.0); MEAN PLATELET VOLUME 12.9 fl (7.4-10.4); MONOCYTE # 0.9 10^3/ul (0.3-0.9); MONOCYTES % 14.2 % (0.0-11.0); NEUTROPHIL # 3.8 10^3/ul (1.6-7.5); NEUTROPHILS % 59.2 % (39.0-77.0); NUCLEATED RED BLOOD CELLS% 0.3 /100WBC (0.0-0.0); PLATELET COUNT 185 10^3/UL (140-415); RED BLOOD COUNT 3.86 10^6/ul (4.20-5.40); WHITE BLOOD COUNT 6.5 10^3/ul (4.8-10.8)
[2016-10-27 06:50] LABS: ALBUMIN 3.6 g/dl (3.3-4.9); ALBUMIN/GLOBULIN RATIO 1.5; CALCIUM 10.2 mg/dl (8.4-10.2); CREATININE 1.63 mg/dl (0.44-1.00); POTASSIUM 3.7 mmol/L (3.5-5.1)
[2016-10-27 07:33] LABS: T3 UPTAKE 47.6 % (23.5-40.5)
[2016-10-27] MEDS: glipiZIDE 10 MG TAB PO SCH ×2 (08:25→17:36)
[2016-10-27] MEDS: CALCIUM CARBONATE 1.25 GM TAB PO SCH ×2 (08:26→20:06)
[2016-10-27] MEDS: METOPROLOL (XL) 25 MG TAB PO SCH (08:31)
[2016-10-27] MEDS: INSULIN GLARGINE [LANtus] 3 ML PEN SC SCH (08:33)
[2016-10-27 08:35] VITALS: BP 190/86; RESP 20
[2016-10-27] MEDS: INSULIN ASPART [NOVOLOG] 3 ML PEN SC SCH ×4 (08:35→20:15)
[2016-10-27] MEDS: FUROSEMIDE 40 MG INJ IV SCH (08:39)
[2016-10-27] MEDS: ENOXAPARIN 40 MG/0.4 ML SYG SC SCH (08:51)
--- NOTE | 2016-10-27 08:57 | RADRPT ---
PROCEDURE: Chest 1 views. CLINICAL INDICATION: Shortness of breath. TECHNIQUE: AP views of the chest was obtained. COMPARISON: May 25, 2016 FINDINGS: The heart is large. Left-sided dual chamber pacemaker has its leads over the heart and appears stabl e. Mild central pulmonary vascular congestion and interstitial prominence is seen in both lungs. E levation right hemidiaphragm is noted. Atelectasis is seen at the right lung base and in the lingul a. No consolidations are identified. No pneumothorax is seen. Osseous structures are intact. IMPRESSION: Cardiomegaly . Mild central pulmonary vascular congestion and interstitial prominence in both lungs. Atelectasis at the right lung base and in the lingula. Elevation of the right hemidiaphragm. RPTAT: AA .Handy Rivera MD, Date Time Electronically viewed and signed by .Handy Rivera MD, on 10/27/2016 08:57 .P/
[2016-10-27] MEDS ORDERED: ASPIRIN (EC) 81 MG TAB PO SCH ×2 (09:00)
[2016-10-27 10:30] VITALS: BP 158/74; PULSE 72
--- NOTE | 2016-10-27 11:12 | RADRPT ---
Vent Rate: 70 bpm RR Interval: 0 msec [place] Interval: 134 msec QRS Duration: 158 msec QT Interval: 504 msec QTC Interval: 544 msec P-R-T Street: 12 - 52 - -66 degrees Electronic atrial pacemaker Right bundle branch block T wave abnormality, consider inferolateral ischemia Abnormal ECG Electronically Signed By: Portillo Reyes [id number]
--- NOTE | 2016-10-27 13:11 | RADRPT ---
Echocardiogram Report Patient Name: ART HEATH Gender: Female Date: 1950 Study Date: 27-Oct-2016 Bookbinder Apprentice: Roberto Faulkner [facility] Location: 626 Ref. Physician: LUCAS SANTIAGO Quality: Good Procedures: Transthoracic echocardiogram with complete 2D, M-Mode, and doppler examination. Indications: Coronary Artery Disease. 2D/M Mode Doppler Measurement Value Normal Ranges Measurement Value Normal Ranges LVIDd 2D 6.1 3.5 - 5.6 cm AV Peak Saeed 1.4 m/sec LVIDs 2D 4.2 2.1 - 4.1 cm AV Peak PG 8.0 mmHg FS 2D 31.3 % AI Peak PG 94.0 mmHg LVPWd 2D 1.0 0.6 - 1.1 cm AI Peak Saeed 4.8 m/sec IVSd 2D 1.2 0.6 - 1.1 cm AI PHT 445.0 msec IVS/LVPW 2D 1.1 LVOT Peak Saeed 0.7 m/sec AoR Diam 2D 2.8 2.0 - 3.7 cm LVOT Peak PG 2.0 mmHg LA/Ao 2D 2 0 - 1 MV E Peak Saeed 1.4 m/sec EDV 2D 225.0 cm3 MV A Peak Saeed 1.0 m/sec ESV 2D 73.0 cm3 MV E/A 1.4 LA Dimen 2D 4.9 2.3 - 4.0 cm MV Decel Time 236 msec MV E/A 1.4 TR Peak Saeed 3.3 m/sec TR Peak PG 44.0 mmHg RVSP 59.0 mmHg Findings Left Ventricle: Moderate concentric left ventricular hypertrophy. Moderate enlargement of left ventricle cavity. Moderate global left ventricular systolic dysfunction. Moderate left ventricular systolic dysfunction. Ejection fraction is visually estimated at 35 %. Tissue Doppler/Mitral Doppler indices are consistent with restrictive physiology with markedly elevated left atrial pressure (Stage IIIIV diastolic dysfunction). Right Ventricle: Normal right ventricular size. Normal right ventricular systolic function. Linear artifact in right ventricle suggestive of catheter, pacer lead, or ICD lead. Left Atrium: There is severe enlargement of left atrium. Right Atrium: The right atrium is normal in size. Mitral Valve: Mitral valve leaflets appear mildly thickened. Mild mitral annular calcification. Moderate mitral valve regurgitation. Aortic Valve: No hemodynamically significant aortic stenosis by doppler. Aortic cusps appear mildly calcified. Mild to moderate aortic valve regurgitation. Tricuspid Valve: Normal appearance of the tricuspid valve. Estimated peak PA systolic pressure 59 mmHg. There is moderate tricuspid regurgitation. Pulmonic Valve: Normal pulmonic valve appearance. There is mild pulmonic regurgitation. Pericardium: Normal pericardium with no significant pericardial effusion. Aorta: Normal aortic root. IVC: Dilated IVC without respiratory collapse consistent with elevated right atrial pressure. Conclusions 1.Moderate concentric left ventricular hypertrophy. Moderate enlargement of left ventricle cavity. Moderate global left ventricular systolic dysfunction. Moderate left ventricular systolic dysfunction. Ejection fraction is visually estimated at 35 %. Tissue Doppler/Mitral Doppler indices are consistent with restrictive physiology with markedly elevated left atrial pressure (Stage III-IV diastolic dysfunction). 2.Normal right ventricular size. Normal right ventricular systolic function. Linear artifact in right ventricle suggestive of catheter, pacer lead, or ICD lead. 3.There is severe enlargement of left atrium. 4.Moderate mitral valve regurgitation. 5.Mild to moderate aortic valve regurgitation. 6.Estimated peak PA systolic pressure 59 mmHg. 7.There is moderate tricuspid regurgitation. 8.There is mild pulmonic regurgitation. Electronically Signed By: Toby Gavin 27-Oct-2016 13:09:35 -0700 Patient Name: ART HEATH Study Date: 27-Oct-2016 [id number]
[2016-10-27] MEDS ORDERED: [UNRECOGNIZED DRUG - REMARK] XX SCH (15:00)
[2016-10-27 15:33] VITALS: BP 167/78
--- NOTE | 2016-10-27 17:14 | PN ---
Date/Time of Note Date/Time of Note DATE: 10/27/16 TIME: 17:13 Assessment/Plan VTE Prophylaxis VTE Prophylaxis Intervention: other Lines/Catheters IV Catheter Type (from Nrsg): Peripheral IV Central line still needed: Yes Reason Cath still needed: other (indicate) Assessment/Plan Chief Complaint/Hosp Course A/P ANASARCA HTN systolic h failutr DM [facility] S/P FALL ASHD HX CHF PLAN PER ORDER dr vickers called Problems: Subjective 24 Hr Interval Summary Subjective hx not possible: other ([id number]) Respiratory: shortness of breath (better) Gastrointestinal: no complaints Genitourinary: no complaints Musculoskeletal: no complaints Skin: no complaints Exam/Review of Systems Vital Signs Vitals Vital Signs Date Time Temp Pulse Resp B/P Pulse Ox O2 Delivery O2 Flow Rate FiO2 10/27/16 15:33 70 167/78 10/27/16 08:35 98.3 20 96 10/27/16 01:28 2.0 Intake and Output 10/26/16 10/26/16 10/27/16 15:00 23:00 07:00 Intake Total 120 ml 350 ml Output Total 850 ml Balance 120 ml -500 ml Exam Respiratory: diminished breath sounds Cardiovascular: regular rate and rhythm Gastrointestinal: soft Musculoskeletal: nl extremities to inspection Results Result Diagram: 10/27/16 0520 10/27/16 0520 Results 24 hrs Laboratory Tests Test 10/26/16 17:22 10/26/16 18:00 10/26/16 18:40 10/26/16 21:09 Bedside Glucose 313 H 275 H 286 H Urine Color YELLOW Urine Clarity CLEAR Urine pH 5.0 Urine Specific [place] 1.008 Urine Ketones NEGATIVE Urine Nitrite NEGATIVE Urine Bilirubin NEGATIVE Urine Urobilinogen NEGATIVE Urine Leukocyte Esterase NEGATIVE Urine Hemoglobin NEGATIVE Urine Random Creatinine 32.36 Urine Protein/Creatinine Ratio 0.43 Urine Glucose NEGATIVE Urine Total Protein 14.0 H Test 10/27/16 01:27 10/27/16 05:20 10/27/16 08:14 10/27/16 12:16 Bedside Glucose 229 H 166 172 White Blood Count 6.5 Red Blood Count 3.86 L Hemoglobin 11.4 L Hematocrit 36.6 L Mean Corpuscular Volume 94.8 Mean Corpuscular Hemoglobin 29.5 Mean Corpuscular Hemoglobin Concent 31.1 L Red Cell Distribution Width 20.0 #H Platelet Count 185 Mean Platelet Volume 12.9 #H Neutrophils % 59.2 Lymphocytes % 24.1 Monocytes % 14.2 H Eosinophils % 1.4 Basophils % 0.8 Nucleated Red Blood Cells % 0.3 H Neutrophils # 3.8 Lymphocytes # 1.6 Monocytes # 0.9 Eosinophils # 0.1 Basophils # 0.1 Nucleated Red Blood Cells # 0.0 Sodium Level 135 Potassium Level 3.7 Chloride Level 94 L Carbon Dioxide Level 27 Anion Gap 18 H Blood Urea Nitrogen 43 H Creatinine 1.63 H Glucose Level 185 Hemoglobin A1c 9.1 H Calcium Level 10.2 Total Bilirubin 1.0 Direct Bilirubin 0.00 Indirect Bilirubin 1.0 Aspartate Amino Transf (AST/SGOT) 120 H Alanine Aminotransferase (ALT/SGPT) 182 H Alkaline Phosphatase 188 H Total Protein 6.0 L Albumin 3.6 Globulin 2.40 Albumin/Globulin Ratio 1.50 Free Thyroxine Index 3.09 Thyroxine (T4) 6.5 Triiodothyronine (T3) Uptake 47.6 H Medications Medications Current Medications Diagnostic Test (Pha) (Accu-Chek) For eating patients: if HS dose... 02 XX Last administered on 10/27/16 01:34; Admin Dose 1 EA; Start 10/27/16 at 02:00 Pantoprazole (Protonix Iv) 40 mg DAILY@06 IV Last administered on 10/27/16 05: 58; Admin Dose 40 MG; Start 10/27/16 at 06:00 Ondansetron HCl (Zofran Inj) 4 mg Q6H PRN IV NAUSEA AND/OR VOMITING; Start 10/26 at 17:30 Furosemide (Lasix) 40 mg DAILY IV Last administered on 10/27/16 08:39; Admin Dose 40 MG; Start 10/27/16 at 09:00 Miscellaneous Information 1 ea NOTE XX ; Start 10/26/16 at 18:00 Glucose (Glutose) 15 gm Q15M PRN PO DECREASED GLUCOSE; Start 10/26/16 at 18:00 Glucose (Glutose) 22.5 gm Q15M PRN PO DECREASED GLUCOSE; Start 10/26/16 at 18:00 Dextrose (D50w Syringe) 25 ml Q15M PRN IV DECREASED GLUCOSE; Start 10/26/16 at 18:00 Dextrose (D50w Syringe) 50 ml Q15M PRN IV DECREASED GLUCOSE; Start 10/26/16 at 18:00 Glucagon (Glucagen) 1 mg Q15M PRN IM DECREASED GLUCOSE; Start 10/26/16 at 18:00 Glucose (Glutose) 15 gm Q15M PRN BUCCAL DECREASED GLUCOSE; Start 10/26/16 at 18: 00 Calcium Carbonate (Oyster Shell Calcium) 1.25 gm BID PO Last administered on 08:26; Admin Dose 1.25 GM; Start 10/26/16 at 21:00 Hydralazine HCl (Apresoline) 25 mg TID PO Last administered on 10/27/16 12:27; Admin Dose 25 MG; Start 10/26/16 at 21:00 Metoprolol Succinate (Toprol Xl) 25 mg DAILY PO Last administered on 10/27/16 08:31; Admin Dose 25 MG; Start 10/27/16 at 09:00 Valsartan (Diovan) 120 mg QHS PO Last administered on 10/26/16 21:10; Admin Dose 120 MG; Start 10/26/16 at 21:00 Insulin Glargine (Lantus) 10 unit DAILY@08 SC Last administered on 10/27/16 08: 33; Admin Dose 10 UNIT; Start 10/27/16 at 08:00 Enoxaparin Sodium (Lovenox) 40 mg DAILY SC Last administered on 10/27/16 08:51 ; Admin Dose 40 MG; Start 10/27/16 at 09:00 Acetaminophen (Tylenol Tab) 650 mg Q6H PRN PO PAIN LEVEL 1-3 OR FEVER; Start at 21:00 Acetaminophen (Tylenol Supp) 650 mg Q6H PRN [place] PAIN LEVEL 1-3 OR FEVER; Start 10/26/16 at 21:00 Docusate Sodium (Colace) 100 mg Q12H PRN PO CONSTIPATION; Start 10/26/16 at 21: 00 Magnesium Hydroxide (Milk Of Mag) 30 ml DAILY PRN PO CONSTIPATION; Start at 21:00 Bisacodyl (Dulcolax) 5 mg DAILY PRN PO CONSTIPATION; Start 10/26/16 at 21:00 Morphine Sulfate (morphine) 1 mg Q4H PRN IV SEVERE PAIN LEVEL 7-10 Last administered on 10/27/16 02:57; Admin Dose 1 MG; Start 10/26/16 at 22:00 LUCAS SANTIAGO MD Oct 27, 2016 17:14
[2016-10-27] MEDS: DOCOSANOL 2 GM CREAM TOP SCH ×2 (17:35→20:09)
[2016-10-27] MEDS ORDERED: hydrALAzine 20 MG INJ ONE (18:01)
[2016-10-27] MEDS: hydrALAzine 20 MG INJ IV PRN (18:04)
[2016-10-27 18:10] VITALS: BP 163/77; PULSE 69
[2016-10-27] MEDS: ACETAMINOPHEN 325 MG TAB PO PRN (20:06)
[2016-10-27] MEDS: VALSARTAN 80 MG TAB PO SCH (20:06)
[2016-10-27 20:33] VITALS: BP 168/77; RESP 19
[2016-10-28 01:26] VITALS: BP 160/112; PULSE 69; RESP 19
[2016-10-28] MEDS: ACETAMINOPHEN 325 MG TAB PO PRN ×2 (01:33→15:19)
[2016-10-28] MEDS: ACCU-CHEK XX SCH (02:09)
[2016-10-28] MEDS: PANTOPRAZOLE (EC) 40 MG TAB PO SCH (05:15)
[2016-10-28 05:18] VITALS: BP 157/97
[2016-10-28] MEDS: INSULIN ASPART [NOVOLOG] 3 ML PEN SC SCH ×4 (08:06→20:34)
[2016-10-28 08:07] VITALS: BP 136/72; RESP 18
[2016-10-28] MEDS: INSULIN GLARGINE [LANtus] 3 ML PEN SC SCH (08:12)
[2016-10-28] MEDS: FUROSEMIDE 40 MG INJ IV SCH (08:37)
[2016-10-28] MEDS: CALCIUM CARBONATE 1.25 GM TAB PO SCH ×2 (08:37→20:28)
[2016-10-28] MEDS: glipiZIDE 10 MG TAB PO SCH ×2 (08:37→18:10)
[2016-10-28] MEDS: DOCOSANOL 2 GM CREAM TOP SCH ×5 (08:38→20:29)
[2016-10-28] MEDS: METOPROLOL (XL) 25 MG TAB PO SCH (08:38)
[2016-10-28] MEDS: ENOXAPARIN 40 MG/0.4 ML SYG SC SCH (08:53)
--- NOTE | 2016-10-28 13:32 | PN ---
Date/Time of Note Date/Time of Note DATE: 10/28/16 TIME: 13:30 Assessment/Plan VTE Prophylaxis VTE Prophylaxis Intervention: ambulation Lines/Catheters [facility] Saline Lock Assessment/Plan Chief Complaint/Hosp Course 1. ANASARCA 2. HTN 3. systolic heart failure 4. DM UNControlled 5. S/P FALL 6. ASHD 7. HX CHF Problems: Assessment/Plan 1. Better DM control Subjective 24 Hr Interval Summary Constitutional: improved, no complaints Exam/Review of Systems Vital Signs Vitals Vital Signs Date Time Temp Pulse Resp B/P Pulse Ox O2 Delivery O2 Flow Rate FiO2 10/28/16 10:02 2.0 10/28/16 08:07 98.4 71 18 136/72 96 10/28/16 01:26 Room Air Intake and Output 10/27/16 10/27/16 10/28/16 15:00 23:00 07:00 Intake Total 540 ml 600 ml Output Total 1800 ml 3 ml Balance -1260 ml 597 ml Exam Constitutional: alert, oriented Musculoskeletal: swelling (lower extremities) Results Result Diagram: 10/27/16 0520 10/27/16 0520 Results 24 hrs Laboratory Tests Test 10/27/16 17:28 10/27/16 20:08 10/28/16 01:31 10/28/16 07:58 Bedside Glucose 204 241 H 273 H 238 H Test 10/28/16 12:20 Bedside Glucose 227 H Medications Medications Current Medications Diagnostic Test (Pha) (Accu-Chek) For eating patients: if HS dose... 02 XX Last administered on 10/28/16 02:09; Admin Dose 1 EA; Start 10/27/16 at 02:00 Ondansetron HCl (Zofran Inj) 4 mg Q6H PRN IV NAUSEA AND/OR VOMITING; Start 10/26 at 17:30 Furosemide (Lasix) 40 mg DAILY IV Last administered on 10/28/16 08:37; Admin Dose 40 MG; Start 10/27/16 at 09:00 Miscellaneous Information 1 ea NOTE XX ; Start 10/26/16 at 18:00 Glucose (Glutose) 15 gm Q15M PRN PO DECREASED GLUCOSE; Start 10/26/16 at 18:00 Glucose (Glutose) 22.5 gm Q15M PRN PO DECREASED GLUCOSE; Start 10/26/16 at 18:00 Dextrose (D50w Syringe) 25 ml Q15M PRN IV DECREASED GLUCOSE; Start 10/26/16 at 18:00 Dextrose (D50w Syringe) 50 ml Q15M PRN IV DECREASED GLUCOSE; Start 10/26/16 at 18:00 Glucagon (Glucagen) 1 mg Q15M PRN IM DECREASED GLUCOSE; Start 10/26/16 at 18:00 Glucose (Glutose) 15 gm Q15M PRN BUCCAL DECREASED GLUCOSE; Start 10/26/16 at 18: 00 Calcium Carbonate (Oyster Shell Calcium) 1.25 gm BID PO Last administered on 08:37; Admin Dose 1.25 GM; Start 10/26/16 at 21:00 Metoprolol Succinate (Toprol Xl) 25 mg DAILY PO Last administered on 10/28/16 08:38; Admin Dose 25 MG; Start 10/27/16 at 09:00 Valsartan (Diovan) 120 mg QHS PO Last administered on 10/27/16 20:06; Admin Dose 120 MG; Start 10/26/16 at 21:00 Insulin Glargine (Lantus) 10 unit DAILY@08 SC Last administered on 10/28/16 08: 12; Admin Dose 10 UNIT; Start 10/27/16 at 08:00 Enoxaparin Sodium (Lovenox) 40 mg DAILY SC Last administered on 10/28/16 08:53 ; Admin Dose 40 MG; Start 10/27/16 at 09:00 Acetaminophen (Tylenol Tab) 650 mg Q6H PRN PO PAIN LEVEL 1-3 OR FEVER Last administered on 10/28/16 01:33; Admin Dose 650 MG; Start 10/26/16 at 21:00 Acetaminophen (Tylenol Supp) 650 mg Q6H PRN [place] PAIN LEVEL 1-3 OR FEVER; Start 10/26/16 at 21:00 Docusate Sodium (Colace) 100 mg Q12H PRN PO CONSTIPATION; Start 10/26/16 at 21: 00 Magnesium Hydroxide (Milk Of Mag) 30 ml DAILY PRN PO CONSTIPATION; Start at 21:00 Bisacodyl (Dulcolax) 5 mg DAILY PRN PO CONSTIPATION; Start 10/26/16 at 21:00 Morphine Sulfate (morphine) 1 mg Q4H PRN IV SEVERE PAIN LEVEL 7-10 Last administered on 10/27/16 02:57; Admin Dose 1 MG; Start 10/26/16 at 22:00 Pantoprazole (Protonix Tab) 40 mg DAILY@06 PO Last administered on 10/28/16 05: 15; Admin Dose 40 MG; Start 10/28/16 at 06:00 Hydralazine HCl (Apresoline) 10 mg Q6H PRN IV SBP >170 Last administered on 10/27 18:04; Admin Dose 10 MG; Start 10/27/16 at 18:00 Hydralazine HCl (Apresoline) 50 mg TID PO ; Start 10/28/16 at 13:00 KAZ SANTIAGO Oct 28, 2016 13:32
[2016-10-28 13:55] VITALS: BP 125/91; PULSE 70
[2016-10-28] MEDS: LINAGLIPTIN 5 MG TABLET PO SCH (15:19)
[2016-10-28 18:49] LABS: CK-MB 0.58 ng/ml (0.0-2.4); TROPONIN-I 0.02 ng/ml (0.00-0.12)
[2016-10-28 20:26] VITALS: BP 140/72; RESP 20
[2016-10-28] MEDS: VALSARTAN 80 MG TAB PO SCH (20:29)
[2016-10-29 01:45] LABS: CK-MB 0.78 ng/ml (0.0-2.4); TROPONIN-I 0.023 ng/ml (0.00-0.12)
[2016-10-29] MEDS: ACCU-CHEK XX SCH (02:27)
[2016-10-29 02:38] VITALS: BP 166/69; RESP 20
[2016-10-29] MEDS: ACETAMINOPHEN 325 MG TAB PO PRN ×2 (03:16→14:57)
[2016-10-29 04:05] VITALS: BP 156/89
[2016-10-29] MEDS: PANTOPRAZOLE (EC) 40 MG TAB PO SCH (06:03)
[2016-10-29 07:01] LABS: CALCIUM 9.5 mg/dl (8.4-10.2); CHOL/HDL RATIO 2.2 RATIO; CREATININE 1.29 mg/dl (0.44-1.00); MAGNESIUM 1.3 mg/dl (1.7-2.5); POTASSIUM 3.2 mmol/L (3.5-5.1)
--- NOTE | 2016-10-29 07:14 | CONS ---
Date/Time of Note Date/Time of Note DATE: 10/29/16 TIME: 07:08 Assessment/Plan Assessment/Plan Chief Complaint/Hosp Course IMp: 1.CHF-systolic acute on chronic 2.Cardiomyopathy-LVEF 35% by exam today 3.HTN 4.DM 5. Fall Recc: -serial ecg's -Continue diovan -Continue Hydralazine with slight increase to improve BP -Continue toprol XL -Continue lasix diuresis Problems: Consultation Date/Type/Reason Admit Date/Time Oct 26, 2016 at 16:29 Initial Consult Date 10/28/2016 Type of Consultation: cardiology Reason for Consultation CHF Referring Provider: LUCAS SANTIAGO Exam/Review of Systems Vital Signs Vitals Vital Signs Date Time Temp Pulse Resp B/P Pulse Ox O2 Delivery O2 Flow Rate FiO2 10/29/16 04:05 156/89 10/29/16 02:38 98.6 70 20 93 10/29/16 01:18 2.0 10/28/16 01:26 Room Air Intake and Output 10/28/16 10/28/16 10/29/16 15:00 23:00 07:00 Intake Total 1200 ml 500 ml Balance 1200 ml 500 ml Exam Review of Systems: CONSTITUTIONAL: No fevers, chills. PULMONARY: Mild sob CARDIOVASCULAR: No chest pain/palpitations GASTROINTESTINAL: No nausea/vomiting. GENITOURINARY: No hematuria/dysuria. MUSCULOSKELETAL: No myagias/arthalgias. PSYCHIATRIC: The patient denies depression. NEUROLOGIC: lethargic Constitutional: other (sleeping, arousable) Psych: no complaints Head: normocephalic ENMT: mucosa pink and moist Neck: jvd (8-9 cm water), supple Respiratory: diminished breath sounds (at bases/B) Cardiovascular: regular rate and rhythm Gastrointestinal: non-tender, soft Musculoskeletal: muscle tone (normal) Extremities: edema (trace/B) Neurological: lethargic Results Result Diagram: 10/27/16 0520 10/29/16 0450 Results 24 hrs Laboratory Tests Test 10/28/16 07:58 10/28/16 12:20 10/28/16 17:34 10/28/16 18:00 Bedside Glucose 238 H 227 H 154 Creatine Kinase 33 Creatine Kinase Index 1.8 Creatinine Kinase MB (Mass) 0.58 Troponin I 0.020 Test 10/28/16 20:26 10/29/16 00:26 10/29/16 02:20 10/29/16 04:50 Bedside Glucose 210 279 H Creatine Kinase 35 Creatine Kinase Index 2.2 Creatinine Kinase MB (Mass) 0.78 Troponin I 0.023 Sodium Level 131 L Potassium Level 3.2 L Chloride Level 89 L Carbon Dioxide Level 34 H Anion Gap 11 # Blood Urea Nitrogen 29 #H Creatinine 1.29 H Glucose Level 231 H Calcium Level 9.5 Magnesium Level 1.3 L B-Type Natriuretic Peptide Pending Triglycerides Level 74 Cholesterol Level 85 L LDL Cholesterol, Calculated 32 HDL Cholesterol 38 Cholesterol/HDL Ratio 2.2 Medications Medications Current Medications Diagnostic Test (Pha) (Accu-Chek) For eating patients: if HS dose... 02 XX Last administered on 10/29/16 02:27; Admin Dose 1 EA; Start 10/27/16 at 02:00 Ondansetron HCl (Zofran Inj) 4 mg Q6H PRN IV NAUSEA AND/OR VOMITING; Start 10/26 at 17:30 Furosemide (Lasix) 40 mg DAILY IV Last administered on 10/28/16 08:37; Admin Dose 40 MG; Start 10/27/16 at 09:00 Miscellaneous Information 1 ea NOTE XX ; Start 10/26/16 at 18:00 Glucose (Glutose) 15 gm Q15M PRN PO DECREASED GLUCOSE; Start 10/26/16 at 18:00 Glucose (Glutose) 22.5 gm Q15M PRN PO DECREASED GLUCOSE; Start 10/26/16 at 18:00 Dextrose (D50w Syringe) 25 ml Q15M PRN IV DECREASED GLUCOSE; Start 10/26/16 at 18:00 Dextrose (D50w Syringe) 50 ml Q15M PRN IV DECREASED GLUCOSE; Start 10/26/16 at 18:00 Glucagon (Glucagen) 1 mg Q15M PRN IM DECREASED GLUCOSE; Start 10/26/16 at 18:00 Glucose (Glutose) 15 gm Q15M PRN BUCCAL DECREASED GLUCOSE; Start 10/26/16 at 18: 00 Calcium Carbonate (Oyster Shell Calcium) 1.25 gm BID PO Last administered on 20:28; Admin Dose 1.25 GM; Start 10/26/16 at 21:00 Metoprolol Succinate (Toprol Xl) 25 mg DAILY PO Last administered on 10/28/16 08:38; Admin Dose 25 MG; Start 10/27/16 at 09:00 Valsartan (Diovan) 120 mg QHS PO Last administered on 10/28/16 20:29; Admin Dose 120 MG; Start 10/26/16 at 21:00 Enoxaparin Sodium (Lovenox) 40 mg DAILY SC Last administered on 10/28/16 08:53 ; Admin Dose 40 MG; Start 10/27/16 at 09:00 Acetaminophen (Tylenol Tab) 650 mg Q6H PRN PO PAIN LEVEL 1-3 OR FEVER Last administered on 10/29/16 03:16; Admin Dose 650 MG; Start 10/26/16 at 21:00 Acetaminophen (Tylenol Supp) 650 mg Q6H PRN [place] PAIN LEVEL 1-3 OR FEVER; Start 10/26/16 at 21:00 Docusate Sodium (Colace) 100 mg Q12H PRN PO CONSTIPATION; Start 10/26/16 at 21: 00 Magnesium Hydroxide (Milk Of Mag) 30 ml DAILY PRN PO CONSTIPATION; Start at 21:00 Bisacodyl (Dulcolax) 5 mg DAILY PRN PO CONSTIPATION Last administered on 22:22; Admin Dose 5 MG; Start 10/26/16 at 21:00 Morphine Sulfate (morphine) 1 mg Q4H PRN IV SEVERE PAIN LEVEL 7-10 Last administered on 10/27/16 02:57; Admin Dose 1 MG; Start 10/26/16 at 22:00 Pantoprazole (Protonix Tab) 40 mg DAILY@06 PO Last administered on 10/29/16 06: 03; Admin Dose 40 MG; Start 10/28/16 at 06:00 Hydralazine HCl (Apresoline) 10 mg Q6H PRN IV SBP >170 Last administered on 10/27 18:04; Admin Dose 10 MG; Start 10/27/16 at 18:00 Hydralazine HCl (Apresoline) 50 mg TID PO Last administered on 10/28/16 20:28; Admin Dose 50 MG; Start 10/28/16 at 13:00 Insulin Glargine (Lantus) 15 unit DAILY@08 SC ; Start 10/29/16 at 08:00 Linagliptin (Tradjenta) 5 mg DAILY PO Last administered on 10/28/16t 15:19; Admin Dose 5 MG; Start 10/28/16 at 14:00 DELFINA LANDAVERDE Oct 29, 2016 07:14
[2016-10-29 07:16] LABS: CK-MB 0.65 ng/ml (0.0-2.4); TROPONIN-I 0.035 ng/ml (0.00-0.12)
[2016-10-29 08:17] VITALS: BP 179/81; RESP 20
[2016-10-29] MEDS: glipiZIDE 10 MG TAB PO SCH ×2 (08:26→17:14)
[2016-10-29] MEDS: INSULIN ASPART [NOVOLOG] 3 ML PEN SC SCH ×4 (08:32→21:06)
[2016-10-29] MEDS: INSULIN GLARGINE [LANtus] 3 ML PEN SC SCH (08:32)
[2016-10-29] MEDS: LINAGLIPTIN 5 MG TABLET PO SCH (09:28)
[2016-10-29] MEDS: CALCIUM CARBONATE 1.25 GM TAB PO SCH ×2 (09:28→21:02)
[2016-10-29] MEDS: METOPROLOL (XL) 25 MG TAB PO SCH (09:29)
[2016-10-29] MEDS: FUROSEMIDE 40 MG INJ IV SCH (09:29)
[2016-10-29] MEDS: ENOXAPARIN 40 MG/0.4 ML SYG SC SCH (09:37)
[2016-10-29] MEDS: DOCOSANOL 2 GM CREAM TOP SCH ×5 (10:03→21:08)
--- NOTE | 2016-10-29 12:38 | PN ---
Date/Time of Note Date/Time of Note DATE: 10/29/16 TIME: 12:36 Assessment/Plan VTE Prophylaxis VTE Prophylaxis Intervention: ambulation Lines/Catheters [facility] Saline Lock Assessment/Plan Chief Complaint/Hosp Course 1. ANASARCA 2. HTN 3. systolic heart failure 4. DM UNControlled 5. S/P FALL 6. ASHD 7. HX CHF Problems: Assessment/Plan 1. better HTN control Subjective 24 Hr Interval Summary Constitutional: improved, no complaints Exam/Review of Systems Vital Signs Vitals Vital Signs Date Time Temp Pulse Resp B/P Pulse Ox O2 Delivery O2 Flow Rate FiO2 10/29/16 08:17 98.8 70 20 179/81 92 10/29/16 07:40 2.0 10/28/16 01:26 Room Air Intake and Output 10/28/16 10/28/16 10/29/16 15:00 23:00 07:00 Intake Total 1200 ml 500 ml Balance 1200 ml 500 ml Exam Constitutional: alert Respiratory: clear to auscultation Cardiovascular: regular rate and rhythm Results Result Diagram: 10/27/16 0520 10/29/16 0450 Results 24 hrs Laboratory Tests Test 10/28/16 17:34 10/28/16 18:00 10/28/16 20:26 10/29/16 00:26 Bedside Glucose 154 210 Creatine Kinase 33 35 Creatine Kinase Index 1.8 2.2 Creatinine Kinase MB (Mass) 0.58 0.78 Troponin I 0.020 0.023 Test 10/29/16 02:20 10/29/16 04:50 10/29/16 08:25 10/29/16 12:20 Bedside Glucose 279 H 218 182 Sodium Level 131 L Potassium Level 3.2 L Chloride Level 89 L Carbon Dioxide Level 34 H Anion Gap 11 # Blood Urea Nitrogen 29 #H Creatinine 1.29 H Glucose Level 231 H Calcium Level 9.5 Magnesium Level 1.3 L Creatine Kinase 29 Creatine Kinase Index 2.2 Creatinine Kinase MB (Mass) 0.65 Troponin I 0.035 B-Type Natriuretic Peptide 53503 H Triglycerides Level 74 Cholesterol Level 85 L LDL Cholesterol, Calculated 32 HDL Cholesterol 38 Cholesterol/HDL Ratio 2.2 Medications Medications Current Medications Diagnostic Test (Pha) (Accu-Chek) For eating patients: if HS dose... 02 XX Last administered on 10/29/16t 02:27; Admin Dose 1 EA; Start 10/27/16 at 02:00 Ondansetron HCl (Zofran Inj) 4 mg Q6H PRN IV NAUSEA AND/OR VOMITING; Start 10/26 at 17:30 Furosemide (Lasix) 40 mg DAILY IV Last administered on 10/29/16 09:29; Admin Dose 40 MG; Start 10/27/16 at 09:00 Miscellaneous Information 1 ea NOTE XX ; Start 10/26/16 at 18:00 Glucose (Glutose) 15 gm Q15M PRN PO DECREASED GLUCOSE; Start 10/26/16 at 18:00 Glucose (Glutose) 22.5 gm Q15M PRN PO DECREASED GLUCOSE; Start 10/26/16 at 18:00 Dextrose (D50w Syringe) 25 ml Q15M PRN IV DECREASED GLUCOSE; Start 10/26/16 at 18:00 Dextrose (D50w Syringe) 50 ml Q15M PRN IV DECREASED GLUCOSE; Start 10/26/16 at 18:00 Glucagon (Glucagen) 1 mg Q15M PRN IM DECREASED GLUCOSE; Start 10/26/16 at 18:00 Glucose (Glutose) 15 gm Q15M PRN BUCCAL DECREASED GLUCOSE; Start 10/26/16 at 18: 00 Calcium Carbonate (Oyster Shell Calcium) 1.25 gm BID PO Last administered on 09:28; Admin Dose 1.25 GM; Start 10/26/16 at 21:00 Metoprolol Succinate (Toprol Xl) 25 mg DAILY PO Last administered on 10/29/16 09:29; Admin Dose 25 MG; Start 10/27/16 at 09:00 Valsartan (Diovan) 120 mg QHS PO Last administered on 10/28/16 20:29; Admin Dose 120 MG; Start 10/26/16 at 21:00 Enoxaparin Sodium (Lovenox) 40 mg DAILY SC Last administered on 10/29/16 09:37 ; Admin Dose 40 MG; Start 10/27/16 at 09:00 Acetaminophen (Tylenol Tab) 650 mg Q6H PRN PO PAIN LEVEL 1-3 OR FEVER Last administered on 10/29/16 03:16; Admin Dose 650 MG; Start 10/26/16 at 21:00 Acetaminophen (Tylenol Supp) 650 mg Q6H PRN [place] PAIN LEVEL 1-3 OR FEVER; Start 10/26/16 at 21:00 Docusate Sodium (Colace) 100 mg Q12H PRN PO CONSTIPATION; Start 10/26/16 at 21: 00 Magnesium Hydroxide (Milk Of Mag) 30 ml DAILY PRN PO CONSTIPATION; Start at 21:00 Bisacodyl (Dulcolax) 5 mg DAILY PRN PO CONSTIPATION Last administered on 22:22; Admin Dose 5 MG; Start 10/26/16 at 21:00 Morphine Sulfate (morphine) 1 mg Q4H PRN IV SEVERE PAIN LEVEL 7-10 Last administered on 10/27/16 02:57; Admin Dose 1 MG; Start 10/26/16 at 22:00 Pantoprazole (Protonix Tab) 40 mg DAILY@06 PO Last administered on 10/29/16 06: 03; Admin Dose 40 MG; Start 10/28/16 at 06:00 Hydralazine HCl (Apresoline) 10 mg Q6H PRN IV SBP >170 Last administered on 10/27 18:04; Admin Dose 10 MG; Start 10/27/16 at 18:00 Insulin Glargine (Lantus) 15 unit DAILY@08 SC Last administered on 10/29/16 08: 32; Admin Dose 15 UNIT; Start 10/29/16 at 08:00 Linagliptin (Tradjenta) 5 mg DAILY PO Last administered on 10/29/16 09:28; Admin Dose 5 MG; Start 10/28/16 at 14:00 Hydralazine HCl (Apresoline) 75 mg Q8 PO ; Start 10/29/16 at 14:00 KAZ SANTIAGO Oct 29, 2016 12:37
[2016-10-29] MEDS ORDERED: POTASSIUM CHLORIDE 20 MEQ POWDER FOR ORAL SOLN PO ONE (13:00)
--- NOTE | 2016-10-29 14:27 | RADRPT ---
Vent Rate: 70 bpm RR Interval: 0 msec MI Interval: 180 msec QRS Duration: 144 msec QT Interval: 530 msec QTC Interval: 572 msec P-R-T Nedrow: 61 - 149 - -67 degrees Electronic atrial pacemaker Right bundle branch block Indeterminate Nedrow T wave abnormality, consider inferolateral ischemia or post pacing T- wave changes Abnormal ECG No previous tracing available for comparison Electronically Signed By: Rashel Costello [id number]
[2016-10-29 20:16] VITALS: BP 140/65; RESP 18
[2016-10-29] MEDS: ACYCLOVIR 400 MG TAB PO SCH (21:02)
[2016-10-29] MEDS: VALSARTAN 80 MG TAB PO SCH (21:03)
[2016-10-30] MEDS: ACCU-CHEK XX SCH (02:00)
[2016-10-30] MEDS: ACETAMINOPHEN 325 MG TAB PO PRN ×2 (03:06→09:04)
[2016-10-30 04:19] VITALS: BP 176/84; RESP 18
[2016-10-30] MEDS: PANTOPRAZOLE (EC) 40 MG TAB PO SCH (05:50)
[2016-10-30 07:08] LABS: CREATININE 1.14 mg/dl (0.44-1.00); POTASSIUM 3.2 mmol/L (3.5-5.1)
[2016-10-30] MEDS: CALCIUM CARBONATE 1.25 GM TAB PO SCH ×2 (08:00→21:27)
[2016-10-30] MEDS: glipiZIDE 10 MG TAB PO SCH ×2 (08:00→17:25)
[2016-10-30] MEDS: LINAGLIPTIN 5 MG TABLET PO SCH (08:00)
[2016-10-30] MEDS: FUROSEMIDE 40 MG INJ IV SCH (08:00)
[2016-10-30] MEDS: ACYCLOVIR 400 MG TAB PO SCH ×3 (08:00→21:27)
[2016-10-30] MEDS: ENOXAPARIN 40 MG/0.4 ML SYG SC SCH (08:08)
[2016-10-30] MEDS: INSULIN ASPART [NOVOLOG] 3 ML PEN SC SCH ×4 (08:09→21:33)
[2016-10-30] MEDS: INSULIN GLARGINE [LANtus] 3 ML PEN SC SCH (08:09)
[2016-10-30 08:10] VITALS: BP 117/90; RESP 18
[2016-10-30] MEDS: DOCOSANOL 2 GM CREAM TOP SCH ×5 (08:37→21:28)
[2016-10-30] MEDS: METOPROLOL (XL) 50 MG TAB PO SCH (08:37)
--- NOTE | 2016-10-30 10:32 | CONS ---
Date/Time of Note Date/Time of Note DATE: 10/30/16 TIME: 10:28 Assessment/Plan Assessment/Plan Chief Complaint/Hosp Course IMp: 1.CHF-systolic acute on chronic. Negative trop x 3 2.Cardiomyopathy-LVEF 35% by echo this admit. Not on ACEI given renal failure 3.HTN-labile but currently reasonable 4.DM 5. ?Fall 6. Renal failure-slowly improving Recc: -serial ecg's -Continue diovan -Continue Hydralazine/Toprol XL and follow labile BP closely -Continue lasix diuresis and follow volume status closely Problems: Consultation Date/Type/Reason Admit Date/Time Oct 26, 2016 at 16:29 Initial Consult Date 10/28/2016 Type of Consultation: cardiology Reason for Consultation CHF/cardiomyopathy Referring Provider: LUCAS SANTIAGO MD Exam/Review of Systems Vital Signs Vitals Vital Signs Date Time Temp Pulse Resp B/P Pulse Ox O2 Delivery O2 Flow Rate FiO2 10/30/16 08:10 98.6 70 18 117/90 95 10/30/16 00:45 2.0 10/28/16 01:26 Room Air Intake and Output 10/29/16 10/29/16 10/30/16 15:00 23:00 07:00 Intake Total 1880 ml 250 ml Balance 1880 ml 250 ml Exam Review of Systems: CONSTITUTIONAL: No fevers, chills. PULMONARY: mild sob CARDIOVASCULAR: No chest pain/palpitations GASTROINTESTINAL: No nausea/vomiting. GENITOURINARY: No hematuria/dysuria. MUSCULOSKELETAL: No myagias/arthalgias. PSYCHIATRIC: The patient denies depression. NEUROLOGIC: lethargic Constitutional: other (sleeping, lethargic) Psych: no complaints Head: normocephalic ENMT: mucosa pink and moist Neck: jvd (9 cm water), supple Respiratory: diminished breath sounds (at bases/B) Cardiovascular: regular rate and rhythm Gastrointestinal: non-tender, soft Musculoskeletal: muscle tone (normal) Extremities: edema (trace/B) Neurological: lethargic Results Result Diagram: 10/27/16 0520 10/30/16 0515 Results 24 hrs Laboratory Tests Test 10/29/16 12:20 10/29/16 17:16 10/29/16 20:59 10/30/16 02:17 Bedside Glucose 182 134 249 H 227 H Test 10/30/16 05:15 10/30/16 07:59 Sodium Level 133 L Potassium Level 3.2 L Chloride Level 87 L Carbon Dioxide Level 32 H Anion Gap 17 H Blood Urea Nitrogen 27 H Creatinine 1.14 H Glucose Level 197 Calcium Level 10.0 Bedside Glucose 169 Medications Medications Current Medications Diagnostic Test (Pha) (Accu-Chek) For eating patients: if HS dose... 02 XX Last administered on 10/29/16 02:27; Admin Dose 1 EA; Start 10/27/16 at 02:00 Ondansetron HCl (Zofran Inj) 4 mg Q6H PRN IV NAUSEA AND/OR VOMITING; Start 10/26 at 17:30 Furosemide (Lasix) 40 mg DAILY IV Last administered on 10/30/16 08:00; Admin Dose 40 MG; Start 10/27/16 at 09:00 Miscellaneous Information 1 ea NOTE XX ; Start 10/26/16 at 18:00 Glucose (Glutose) 15 gm Q15M PRN PO DECREASED GLUCOSE; Start 10/26/16 at 18:00 Glucose (Glutose) 22.5 gm Q15M PRN PO DECREASED GLUCOSE; Start 10/26/16 at 18:00 Dextrose (D50w Syringe) 25 ml Q15M PRN IV DECREASED GLUCOSE; Start 10/26/16 at 18:00 Dextrose (D50w Syringe) 50 ml Q15M PRN IV DECREASED GLUCOSE; Start 10/26/16 at 18:00 Glucagon (Glucagen) 1 mg Q15M PRN IM DECREASED GLUCOSE; Start 10/26/16 at 18:00 Glucose (Glutose) 15 gm Q15M PRN BUCCAL DECREASED GLUCOSE; Start 10/26/16 at 18: 00 Calcium Carbonate (Oyster Shell Calcium) 1.25 gm BID PO Last administered on 08:00; Admin Dose 1.25 GM; Start 10/26/16 at 21:00 Valsartan (Diovan) 120 mg QHS PO Last administered on 10/29/16 21:03; Admin Dose 120 MG; Start 10/26/16 at 21:00 Enoxaparin Sodium (Lovenox) 40 mg DAILY SC Last administered on 10/30/16 08:08 ; Admin Dose 40 MG; Start 10/27/16 at 09:00 Acetaminophen (Tylenol Tab) 650 mg Q6H PRN PO PAIN LEVEL 1-3 OR FEVER Last administered on 10/30/16 09:04; Admin Dose 650 MG; Start 10/26/16 at 21:00 Acetaminophen (Tylenol Supp) 650 mg Q6H PRN [place] PAIN LEVEL 1-3 OR FEVER; Start 10/26/16 at 21:00 Docusate Sodium (Colace) 100 mg Q12H PRN PO CONSTIPATION; Start 10/26/16 at 21: 00 Magnesium Hydroxide (Milk Of Mag) 30 ml DAILY PRN PO CONSTIPATION; Start at 21:00 Bisacodyl (Dulcolax) 5 mg DAILY PRN PO CONSTIPATION Last administered on 22:22; Admin Dose 5 MG; Start 10/26/16 at 21:00 Morphine Sulfate (morphine) 1 mg Q4H PRN IV SEVERE PAIN LEVEL 7-10 Last administered on 10/27/16 02:57; Admin Dose 1 MG; Start 10/26/16 at 22:00 Pantoprazole (Protonix Tab) 40 mg DAILY@06 PO Last administered on 10/30/16 05: 50; Admin Dose 40 MG; Start 10/28/16 at 06:00 Hydralazine HCl (Apresoline) 10 mg Q6H PRN IV SBP >170 Last administered on 10/27 18:04; Admin Dose 10 MG; Start 10/27/16 at 18:00 Insulin Glargine (Lantus) 15 unit DAILY@08 SC Last administered on 10/30/16 08: 09; Admin Dose 15 UNIT; Start 10/29/16 at 08:00 Linagliptin (Tradjenta) 5 mg DAILY PO Last administered on 10/30/16 08:00; Admin Dose 5 MG; Start 10/28/16 at 14:00 Hydralazine HCl (Apresoline) 75 mg Q8 PO Last administered on 10/30/16 05:50; Admin Dose 75 MG; Start 10/29/16 at 14:00 Metoprolol Succinate (Toprol Xl) 50 mg DAILY PO Last administered on 10/30/16 08:37; Admin Dose 50 MG; Start 10/30/16 at 09:00 Acyclovir (Zovirax) 400 mg TID PO Last administered on 10/30/16 08:00; Admin Dose 400 MG; Start 10/29/16 at 21:00 DELFINA LANDAVERDE Oct 30, 2016 10:32
[2016-10-30] MEDS ORDERED: FUROSEMIDE 40 MG INJ IV ONE (15:00)
--- NOTE | 2016-10-30 15:01 | PN ---
Date/Time of Note Date/Time of Note DATE: 10/30/16 TIME: 15:00 Assessment/Plan VTE Prophylaxis VTE Prophylaxis Intervention: other Lines/Catheters IV Catheter Type (from Nrsg): Saline Lock Assessment/Plan Chief Complaint/Hosp Course A/P ANASARCA BETTER HTN systolic h failutr DM [facility] HYPOKALEMIA S/P FALL ASHD HX CHF PLAN PER ORDER dr vickers called [facility] Problems: Subjective 24 Hr Interval Summary Subjective hx not possible: other (LEG EDEMA LESS) Exam/Review of Systems Vital Signs Vitals Vital Signs Date Time Temp Pulse Resp B/P Pulse Ox O2 Delivery O2 Flow Rate FiO2 10/30/16 08:10 98.6 70 18 117/90 95 10/30/16 00:45 2.0 10/28/16 01:26 Room Air Intake and Output 10/29/16 10/29/16 10/30/16 15:00 23:00 07:00 Intake Total 1880 ml 250 ml Balance 1880 ml 250 ml Exam Neck: supple Respiratory: diminished breath sounds Cardiovascular: regular rate and rhythm Gastrointestinal: soft Extremities: edema (++) Results Result Diagram: 10/27/16 0520 10/30/16 0515 Results 24 hrs Laboratory Tests Test 10/29/16 17:16 10/29/16 20:59 10/30/16 02:17 10/30/16 05:15 Bedside Glucose 134 249 H 227 H Sodium Level 133 L Potassium Level 3.2 L Chloride Level 87 L Carbon Dioxide Level 32 H Anion Gap 17 H Blood Urea Nitrogen 27 H Creatinine 1.14 H Glucose Level 197 Calcium Level 10.0 Test 10/30/16 07:59 10/30/16 11:58 Bedside Glucose 169 211 Medications Medications Current Medications Diagnostic Test (Pha) (Accu-Chek) For eating patients: if HS dose... 02 XX Last administered on 10/29/16 02:27; Admin Dose 1 EA; Start 10/27/16 at 02:00 Ondansetron HCl (Zofran Inj) 4 mg Q6H PRN IV NAUSEA AND/OR VOMITING; Start 10/26 at 17:30 Furosemide (Lasix) 40 mg DAILY IV Last administered on 10/30/16 08:00; Admin Dose 40 MG; Start 10/27/16 at 09:00 Miscellaneous Information 1 ea NOTE XX ; Start 10/26/16 at 18:00 Glucose (Glutose) 15 gm Q15M PRN PO DECREASED GLUCOSE; Start 10/26/16 at 18:00 Glucose (Glutose) 22.5 gm Q15M PRN PO DECREASED GLUCOSE; Start 10/26/16 at 18:00 Dextrose (D50w Syringe) 25 ml Q15M PRN IV DECREASED GLUCOSE; Start 10/26/16 at 18:00 Dextrose (D50w Syringe) 50 ml Q15M PRN IV DECREASED GLUCOSE; Start 10/26/16 at 18:00 Glucagon (Glucagen) 1 mg Q15M PRN IM DECREASED GLUCOSE; Start 10/26/16 at 18:00 Glucose (Glutose) 15 gm Q15M PRN BUCCAL DECREASED GLUCOSE; Start 10/26/16 at 18: 00 Calcium Carbonate (Oyster Shell Calcium) 1.25 gm BID PO Last administered on 08:00; Admin Dose 1.25 GM; Start 10/26/16 at 21:00 Valsartan (Diovan) 120 mg QHS PO Last administered on 10/29/16 21:03; Admin Dose 120 MG; Start 10/26/16 at 21:00 Enoxaparin Sodium (Lovenox) 40 mg DAILY SC Last administered on 10/30/16 08:08 ; Admin Dose 40 MG; Start 10/27/16 at 09:00 Acetaminophen (Tylenol Tab) 650 mg Q6H PRN PO PAIN LEVEL 1-3 OR FEVER Last administered on 10/30/16 09:04; Admin Dose 650 MG; Start 10/26/16 at 21:00 Acetaminophen (Tylenol Supp) 650 mg Q6H PRN [place] PAIN LEVEL 1-3 OR FEVER; Start 10/26/16 at 21:00 Docusate Sodium (Colace) 100 mg Q12H PRN PO CONSTIPATION; Start 10/26/16 at 21: 00 Magnesium Hydroxide (Milk Of Mag) 30 ml DAILY PRN PO CONSTIPATION; Start at 21:00 Bisacodyl (Dulcolax) 5 mg DAILY PRN PO CONSTIPATION Last administered on 22:22; Admin Dose 5 MG; Start 10/26/16 at 21:00 Morphine Sulfate (morphine) 1 mg Q4H PRN IV SEVERE PAIN LEVEL 7-10 Last administered on 10/27/16 02:57; Admin Dose 1 MG; Start 10/26/16 at 22:00 Pantoprazole (Protonix Tab) 40 mg DAILY@06 PO Last administered on 10/30/16 05: 50; Admin Dose 40 MG; Start 10/28/16 at 06:00 Hydralazine HCl (Apresoline) 10 mg Q6H PRN IV SBP >170 Last administered on 10/27 18:04; Admin Dose 10 MG; Start 10/27/16 at 18:00 Insulin Glargine (Lantus) 15 unit DAILY@08 SC Last administered on 10/30/16 08: 09; Admin Dose 15 UNIT; Start 10/29/16 at 08:00 Linagliptin (Tradjenta) 5 mg DAILY PO Last administered on 10/30/16 08:00; Admin Dose 5 MG; Start 10/28/16 at 14:00 Hydralazine HCl (Apresoline) 75 mg Q8 PO Last administered on 10/30/16 14:18; Admin Dose 75 MG; Start 10/29/16 at 14:00 Metoprolol Succinate (Toprol Xl) 50 mg DAILY PO Last administered on 10/30/16 08:37; Admin Dose 50 MG; Start 10/30/16 at 09:00 Acyclovir (Zovirax) 400 mg TID PO Last administered on 10/30/16 11:59; Admin Dose 400 MG; Start 10/29/16 at 21:00 Furosemide (Lasix) 40 mg ONCE ONCE IV Last administered on 10/30/16 14:17; Admin Dose 40 MG; Start 10/30/16 at 15:00; Stop 10/30/16 at 15:01 LUCAS SANTIAGO MD Oct 30, 2016 15:01
[2016-10-30] MEDS: POTASSIUM CHLORIDE (SR) 20 MEQ TAB PO SCH ×2 (15:35→21:27)
[2016-10-30 20:23] VITALS: BP 125/62; RESP 20
[2016-10-30] MEDS: VALSARTAN 80 MG TAB PO SCH (21:31)
[2016-10-31] MEDS: ACCU-CHEK XX SCH (02:00)
[2016-10-31 02:05] VITALS: BP 185/87; RESP 20
[2016-10-31] MEDS: hydrALAzine 20 MG INJ IV PRN (02:30)
[2016-10-31] MEDS: PANTOPRAZOLE (EC) 40 MG TAB PO SCH (06:27)
[2016-10-31] MEDS: ACETAMINOPHEN 325 MG TAB PO PRN (06:27)
[2016-10-31 08:03] VITALS: BP 132/72; RESP 18
[2016-10-31] MEDS: glipiZIDE 10 MG TAB PO SCH ×2 (08:08→18:13)
[2016-10-31] MEDS: INSULIN ASPART [NOVOLOG] 3 ML PEN SC SCH ×3 (08:17→17:32)
[2016-10-31] MEDS: INSULIN GLARGINE [LANtus] 3 ML PEN SC SCH (08:18)
[2016-10-31] MEDS: FUROSEMIDE 40 MG INJ IV SCH (09:00)
[2016-10-31] MEDS: ACYCLOVIR 400 MG TAB PO SCH ×2 (09:32→13:27)
[2016-10-31] MEDS: LINAGLIPTIN 5 MG TABLET PO SCH (09:33)
[2016-10-31] MEDS: CALCIUM CARBONATE 1.25 GM TAB PO SCH (09:33)
[2016-10-31] MEDS: POTASSIUM CHLORIDE (SR) 20 MEQ TAB PO SCH (09:33)
[2016-10-31] MEDS: METOPROLOL (XL) 50 MG TAB PO SCH (09:34)
[2016-10-31] MEDS: morphine 2 MG INJ IV PRN (09:42)
[2016-10-31] MEDS: ENOXAPARIN 40 MG/0.4 ML SYG SC SCH (09:45)
[2016-10-31] MEDS: DOCOSANOL 2 GM CREAM TOP SCH ×4 (09:46→18:13)
[2016-10-31 10:16] LABS: ALBUMIN 4.4 g/dl (3.3-4.9); ALBUMIN/GLOBULIN RATIO 1.62; BILIRUBIN,INDIRECT 0.7 mg/dl (0-1.1); BILIRUBIN,TOTAL 0.7 mg/dl (0.2-1.3); CREATININE 1.83 mg/dl (0.44-1.00); TOTAL PROTEIN 7.1 g/dl (6.1-8.1)
--- NOTE | 2016-10-31 11:00 | CONS ---
Date/Time of Note Date/Time of Note DATE: 10/31/16 TIME: 10:55 Assessment/Plan Assessment/Plan Chief Complaint/Hosp Course IMp: 1.CHF-systolic acute on chronic. Negative trop x 3 2.Cardiomyopathy-LVEF 35% by echo this admit. 3.HTN-labile but currently reasonable 4.DM 5. ?Fall 6. Renal failure-slowly improving Recc: -serial ecg's -Continue diovan -Continue Hydralazine/Toprol XL and follow labile BP closely -Continue lasix diuresis and follow volume status closely Problems: Consultation Date/Type/Reason Admit Date/Time Oct 26, 2016 at 16:29 Initial Consult Date 10/28/2016 Type of Consultation: cardiology Reason for Consultation CHF Referring Provider: LUCAS SANTIAGO MD Exam/Review of Systems Vital Signs Vitals Vital Signs Date Time Temp Pulse Resp B/P Pulse Ox O2 Delivery O2 Flow Rate FiO2 10/31/16 08:03 98.1 71 18 132/72 96 10/31/16 03:53 2.0 10/28/16 01:26 Room Air Intake and Output 10/30/16 10/30/16 10/31/16 15:00 23:00 07:00 Intake Total 720 ml 240 ml Balance 720 ml 240 ml Exam Review of Systems: CONSTITUTIONAL: No fevers, chills. PULMONARY: No sob CARDIOVASCULAR: No chest pain/palpitations GASTROINTESTINAL: No nausea/vomiting. GENITOURINARY: No hematuria/dysuria. MUSCULOSKELETAL: No myagias/arthalgias. PSYCHIATRIC: The patient denies depression. NEUROLOGIC: lethargic Constitutional: alert Psych: no complaints Head: normocephalic ENMT: mucosa pink and moist Neck: jvd (9 cm water), supple Respiratory: diminished breath sounds (at bases/B) Cardiovascular: regular rate and rhythm Gastrointestinal: non-tender, soft Musculoskeletal: muscle tone (normal) Extremities: edema (trace/B) Neurological: other (No focal degficits) Results Result Diagram: 10/27/16 0520 10/31/16 0950 Results 24 hrs Laboratory Tests Test 10/30/16 11:58 10/30/16 17:26 10/30/16 21:25 10/31/16 02:27 Bedside Glucose 211 175 272 H 191 Test 10/31/16 08:06 10/31/16 09:50 Bedside Glucose 169 Sodium Level 129 L Potassium Level 4.0 Chloride Level 91 L Carbon Dioxide Level 30 Anion Gap 12 Blood Urea Nitrogen 39 #H Creatinine 1.83 H Glucose Level 242 H Calcium Level 10.0 Total Bilirubin 0.7 Direct Bilirubin 0.00 Indirect Bilirubin 0.7 Aspartate Amino Transf (AST/SGOT) 56 H Alanine Aminotransferase (ALT/SGPT) 92 H Alkaline Phosphatase 166 H Total Protein 7.1 Albumin 4.4 Globulin 2.70 Albumin/Globulin Ratio 1.62 Medications Medications Current Medications Diagnostic Test (Pha) (Accu-Chek) For eating patients: if HS dose... 02 XX Last administered on 10/29/16 02:27; Admin Dose 1 EA; Start 10/27/16 at 02:00 Ondansetron HCl (Zofran Inj) 4 mg Q6H PRN IV NAUSEA AND/OR VOMITING; Start 10/26 at 17:30 Furosemide (Lasix) 40 mg DAILY IV Last administered on 10/30/16 08:00; Admin Dose 40 MG; Start 10/27/16 at 09:00 Miscellaneous Information 1 ea NOTE XX ; Start 10/26/16 at 18:00 Glucose (Glutose) 15 gm Q15M PRN PO DECREASED GLUCOSE; Start 10/26/16 at 18:00 Glucose (Glutose) 22.5 gm Q15M PRN PO DECREASED GLUCOSE; Start 10/26/16 at 18:00 Dextrose (D50w Syringe) 25 ml Q15M PRN IV DECREASED GLUCOSE; Start 10/26/16 at 18:00 Dextrose (D50w Syringe) 50 ml Q15M PRN IV DECREASED GLUCOSE; Start 10/26/16 at 18:00 Glucagon (Glucagen) 1 mg Q15M PRN IM DECREASED GLUCOSE; Start 10/26/16 at 18:00 Glucose (Glutose) 15 gm Q15M PRN BUCCAL DECREASED GLUCOSE; Start 10/26/16 at 18: 00 Calcium Carbonate (Oyster Shell Calcium) 1.25 gm BID PO Last administered on 09:33; Admin Dose 1.25 GM; Start 10/26/16 at 21:00 Valsartan (Diovan) 120 mg QHS PO Last administered on 10/30/16 21:31; Admin Dose 120 MG; Start 10/26/16 at 21:00 Enoxaparin Sodium (Lovenox) 40 mg DAILY SC Last administered on 10/31/16 09:45 ; Admin Dose 40 MG; Start 10/27/16 at 09:00 Acetaminophen (Tylenol Tab) 650 mg Q6H PRN PO PAIN LEVEL 1-3 OR FEVER Last administered on 10/31/16 06:27; Admin Dose 650 MG; Start 10/26/16 at 21:00 Acetaminophen (Tylenol Supp) 650 mg Q6H PRN [place] PAIN LEVEL 1-3 OR FEVER; Start 10/26/16 at 21:00 Docusate Sodium (Colace) 100 mg Q12H PRN PO CONSTIPATION; Start 10/26/16 at 21: 00 Magnesium Hydroxide (Milk Of Mag) 30 ml DAILY PRN PO CONSTIPATION; Start at 21:00 Bisacodyl (Dulcolax) 5 mg DAILY PRN PO CONSTIPATION Last administered on 22:22; Admin Dose 5 MG; Start 10/26/16 at 21:00 Morphine Sulfate (morphine) 1 mg Q4H PRN IV SEVERE PAIN LEVEL 7-10 Last administered on 10/31/16 09:42; Admin Dose 1 MG; Start 10/26/16 at 22:00 Pantoprazole (Protonix Tab) 40 mg DAILY@06 PO Last administered on 10/31/16 06 :27; Admin Dose 40 MG; Start 10/28/16 at 06:00 Hydralazine HCl (Apresoline) 10 mg Q6H PRN IV SBP >170 Last administered on 02:30; Admin Dose 10 MG; Start 10/27/16 at 18:00 Insulin Glargine (Lantus) 15 unit DAILY@08 SC Last administered on 10/31/16 08 :18; Admin Dose 15 UNIT; Start 10/29/16 at 08:00 Linagliptin (Tradjenta) 5 mg DAILY PO Last administered on 10/31/16 09:33; Admin Dose 5 MG; Start 10/28/16 at 14:00 Hydralazine HCl (Apresoline) 75 mg Q8 PO Last administered on 10/30/16 21:28; Admin Dose 75 MG; Start 10/29/16 at 14:00 Metoprolol Succinate (Toprol Xl) 50 mg DAILY PO Last administered on 10/31/16 09:34; Admin Dose 50 MG; Start 10/30/16 at 09:00 Acyclovir (Zovirax) 400 mg TID PO Last administered on 10/31/16 09:32; Admin Dose 400 MG; Start 10/29/16 at 21:00 Potassium Chloride (Klor-Con 20) 20 meq BID PO Last administered on 10/31/16 09:33; Admin Dose 20 MEQ; Start 10/30/16 at 15:30 DELFINA LANDAVERDE Oct 31, 2016 11:00
--- NOTE | 2016-10-31 19:34 | PDOCDIS ---
Discharge Instructions CONDITION Patient Condition: Stable HOME CARE INSTRUCTIONS: Special Diet: 1800 alta 2 gm NA diet ACTIVITY: Activity Restrictions: Slowly Increase Activity FOLLOW UP/APPOINTMENTS Follow-up Plan f/u dr vickers [address] santiago 2 wks LUCAS SANTIAGO MD Oct 31, 2016 19:34
[2016-10-31] MEDS ORDERED: DOCO2CRE3 TOP (19:39)
[2016-10-31] MEDS ORDERED: LINA5TAB PO (19:39)
[2016-10-31] MEDS ORDERED: LANT3I SC (19:39)
[2016-10-31] MEDS ORDERED: HYDR-3671 PO (19:39)
[2016-10-31] MEDS ORDERED: BISA5TAB6 PO (19:39)
[2016-10-31] MEDS ORDERED: PANT40TA4 PO (19:39)
[2016-10-31] MEDS ORDERED: DOCU-216 PO (19:39)
[2016-10-31] MEDS ORDERED: METO50TA16 PO (19:39)
[2016-10-31] MEDS ORDERED: POTA20TA15 PO (19:39)
[2016-10-31] MEDS ORDERED: ACYC400T2 PO (19:39)
--- NOTE | 2016-10-31 20:38 | PN ---
Date/Time of Note Date/Time of Note DATE: 10/31/16 TIME: 20:37 Assessment/Plan VTE Prophylaxis VTE Prophylaxis Intervention: other Lines/Catheters IV Catheter Type (from Nrsg): Saline Lock Assessment/Plan Chief Complaint/Hosp Course A/P ANASARCA BETTER HTN systolic h failutr DM [facility] HYPOKALEMIA S/P FALL ASHD HX CHF PLAN PER ORDER home Problems: Subjective 24 Hr Interval Summary Respiratory: no complaints Cardiovascular: no complaints Exam/Review of Systems Vital Signs Vitals Vital Signs Date Time Temp Pulse Resp B/P Pulse Ox O2 Delivery O2 Flow Rate FiO2 10/31/16 08:03 98.1 71 18 132/72 96 10/31/16 03:53 2.0 10/28/16 01:26 Room Air Intake and Output 10/30/16 10/30/16 10/31/16 15:00 23:00 07:00 Intake Total 720 ml 240 ml Balance 720 ml 240 ml Exam Neck: supple Respiratory: clear to auscultation Cardiovascular: regular rate and rhythm Extremities: edema (better) Results Result Diagram: 10/27/16 0520 10/31/16 0950 Results 24 hrs Laboratory Tests Test 10/30/16 21:25 10/31/16 02:27 10/31/16 08:06 10/31/16 09:50 Bedside Glucose 272 H 191 169 Sodium Level 129 L Potassium Level 4.0 Chloride Level 91 L Carbon Dioxide Level 30 Anion Gap 12 Blood Urea Nitrogen 39 #H Creatinine 1.83 H Glucose Level 242 H Calcium Level 10.0 Total Bilirubin 0.7 Direct Bilirubin 0.00 Indirect Bilirubin 0.7 Aspartate Amino Transf (AST/SGOT) 56 H Alanine Aminotransferase (ALT/SGPT) 92 H Alkaline Phosphatase 166 H Total Protein 7.1 Albumin 4.4 Globulin 2.70 Albumin/Globulin Ratio 1.62 Test 10/31/16 12:12 10/31/16 17:25 Bedside Glucose 226 H 249 H Medications Medications Current Medications Diagnostic Test (Pha) (Accu-Chek) For eating patients: if HS dose... 02 XX Last administered on 10/29/16t 02:27; Admin Dose 1 EA; Start 10/27/16 at 02:00 Ondansetron HCl (Zofran Inj) 4 mg Q6H PRN IV NAUSEA AND/OR VOMITING; Start 10/26 at 17:30 Furosemide (Lasix) 40 mg DAILY IV Last administered on 10/30/16 08:00; Admin Dose 40 MG; Start 10/27/16 at 09:00 Miscellaneous Information 1 ea NOTE XX ; Start 10/26/16 at 18:00 Glucose (Glutose) 15 gm Q15M PRN PO DECREASED GLUCOSE; Start 10/26/16 at 18:00 Glucose (Glutose) 22.5 gm Q15M PRN PO DECREASED GLUCOSE; Start 10/26/16 at 18:00 Dextrose (D50w Syringe) 25 ml Q15M PRN IV DECREASED GLUCOSE; Start 10/26/16 at 18:00 Dextrose (D50w Syringe) 50 ml Q15M PRN IV DECREASED GLUCOSE; Start 10/26/16 at 18:00 Glucagon (Glucagen) 1 mg Q15M PRN IM DECREASED GLUCOSE; Start 10/26/16 at 18:00 Glucose (Glutose) 15 gm Q15M PRN BUCCAL DECREASED GLUCOSE; Start 10/26/16 at 18: 00 Calcium Carbonate (Oyster Shell Calcium) 1.25 gm BID PO Last administered on 09:33; Admin Dose 1.25 GM; Start 10/26/16 at 21:00 Valsartan (Diovan) 120 mg QHS PO Last administered on 10/30/16 21:31; Admin Dose 120 MG; Start 10/26/16 at 21:00 Enoxaparin Sodium (Lovenox) 40 mg DAILY SC Last administered on 10/31/16 09:45 ; Admin Dose 40 MG; Start 10/27/16 at 09:00 Acetaminophen (Tylenol Tab) 650 mg Q6H PRN PO PAIN LEVEL 1-3 OR FEVER Last administered on 10/31/16 06:27; Admin Dose 650 MG; Start 10/26/16 at 21:00 Acetaminophen (Tylenol Supp) 650 mg Q6H PRN [place] PAIN LEVEL 1-3 OR FEVER; Start 10/26/16 at 21:00 Docusate Sodium (Colace) 100 mg Q12H PRN PO CONSTIPATION; Start 10/26/16 at 21: 00 Magnesium Hydroxide (Milk Of Mag) 30 ml DAILY PRN PO CONSTIPATION; Start at 21:00 Bisacodyl (Dulcolax) 5 mg DAILY PRN PO CONSTIPATION Last administered on 22:22; Admin Dose 5 MG; Start 10/26/16 at 21:00 Morphine Sulfate (morphine) 1 mg Q4H PRN IV SEVERE PAIN LEVEL 7-10 Last administered on 10/31/16 09:42; Admin Dose 1 MG; Start 10/26/16 at 22:00 Pantoprazole (Protonix Tab) 40 mg DAILY@06 PO Last administered on 10/31/16 06 :27; Admin Dose 40 MG; Start 10/28/16 at 06:00 Hydralazine HCl (Apresoline) 10 mg Q6H PRN IV SBP >170 Last administered on 02:30; Admin Dose 10 MG; Start 10/27/16 at 18:00 Insulin Glargine (Lantus) 15 unit DAILY@08 SC Last administered on 10/31/16 08 :18; Admin Dose 15 UNIT; Start 10/29/16 at 08:00 Linagliptin (Tradjenta) 5 mg DAILY PO Last administered on 10/31/16 09:33; Admin Dose 5 MG; Start 10/28/16 at 14:00 Hydralazine HCl (Apresoline) 75 mg Q8 PO Last administered on 10/30/16 21:28; Admin Dose 75 MG; Start 10/29/16 at 14:00 Metoprolol Succinate (Toprol Xl) 50 mg DAILY PO Last administered on 10/31/16 09:34; Admin Dose 50 MG; Start 10/30/16 at 09:00 Acyclovir (Zovirax) 400 mg TID PO Last administered on 10/31/16 13:27; Admin Dose 400 MG; Start 10/29/16 at 21:00 Potassium Chloride (Klor-Con 20) 20 meq BID PO Last administered on 10/31/16 09:33; Admin Dose 20 MEQ; Start 10/30/16 at 15:30 LUCAS SANTIAGO MD Oct 31, 2016 20:38
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
== END 2016-10-31 20:55 | disposition home or self-care (01) | DRG 291 ==
LOC: MS2 16:29
PROVIDERS: ADMIT Internal Medicine Nephrology; ATTEND Internal Medicine Nephrology
DX: I13.0 Hypertensive heart and chronic kidney disease with heart failure and stage 1 through stage 4 chronic kidney disease, or unspecified chronic kidney disease (principal); I50.23 Acute on chronic systolic (congestive) heart failure; E11.65 Type 2 diabetes mellitus with hyperglycemia; N18.9 Chronic kidney disease, unspecified; E78.5 Hyperlipidemia, unspecified; I25.10 Atherosclerotic heart disease of native coronary artery without angina pectoris
CPT/HCPCS: 71010; 80048; 80053; 80061; 81003; 82550; 82553; 82570; 82962; 83036; 83735; 83880; 84436; 84479; 84484; 85025; 93005; 93306; 97161; C9113; J0360; J1650; J1815; J1940; J2270

== ENCOUNTER 2017-07-29 16:25 | Inpatient (IN) | END 2017-08-02 13:40 | disposition home health service (06) | DRG 291 ==

== ENCOUNTER → 2017-08-11 | Outpatient (CLI) | END | disposition home or self-care (01) ==

== ENCOUNTER 2017-10-15 11:03 | Inpatient (IN) | END 2017-10-16 18:10 | disposition home or self-care (01) | DRG 291 ==

== ENCOUNTER 2018-08-05 18:35 | Emergency (ER) | payer MEDICARE, OTHER ==
[~2018-08-05] VITALS: Ht 160 cm; Wt 90.9 kg
[~2018-08-05 18:35] MED LIST changes: +ASPI81TA52 PO; +ATOR-2 PO; +CALC1TAB79 PO; -CALC500T12 PO; +CARV25TA79 PO; +CLOP75TA27 PO; +FAMO20TA18 PO; +FURO20TA3 PO; -FURO40SO PO; -FURO40TA4 PO; -GLIP-95 PO; -HYDR-3671 PO; +HYDR-3672 PO; +LANT3I SC; +LISI-313 PO; -METO25TA7 PO; -MTF1000T PO; +NOVO3I SC; +PREG50CA PO; +SITA100T11 PO; -SITA100T8 PO; -VALS80TA2 PO
[2018-08-05 18:39] VITALS: Ht 160 cm; Wt 90.9 kg
--- NOTE | 2018-08-05 20:22 | ERD ---
ER Documentation Chief Complaint Chief Complaint LOWER BACK PAIN S/P FALL WHEN GETTING OFF THE BUS - NO KO HPI This is a 67-year-old female who presents to the emergency room with complaint of back pain status post fall from missing step when getting off of the bus and landing right on her sacrum. Injury of approximately 2 hours [employer]INT[employer]. Patient tearful in moderate distress. Medical history significant for hypertension, diabetes, high cholesterol, patient has a pacemaker. She refuses to ambulate during exam. [facility] on [facility], transferred to in ED 1 before being brought to ED 2. ROS All systems reviewed and are negative except as per history of present illness. Medications Home Meds Active Scripts Tramadol HCl (Tramadol HCl) 50 Mg Tablet, 50 MG PO Q4 PRN for PAIN for 7 Days, #7 TAB Prov:NATALIE VARGAS NP 08/05/18 Acetaminophen* (Tylophen*) 500 Mg Capsule, 2 CAP PO Q8H PRN for PAIN AND OR ELEVATED TEMP, #20 CAP Prov:NATALIE VARGAS NP 08/05/18 Furosemide* (Furosemide*) 20 Mg Tablet, 20 MG PO DAILY for 30 Days, #14 TAB Prov:KAZ SANTIAGO 10/14/17 Insulin Aspart* (Novolog Insulin Pen*) 100 Unit/Ml Soln, 4 UNIT SC WITH MEALS for 30 Days Prov:CLEMENT JUNG MD 08/02/17 Insulin Glargine* (Lantus*) 100 Unit/Ml Soln, 15 UNIT SC DAILY@20 for 30 Days Prov:CLEMENT JUNG MD 08/02/17 Hydralazine Hcl* (Apresoline*) 50 Mg Tab, 50 MG PO TID for 30 Days, TAB Prov:CLEMENT JUNG MD 08/02/17 Amlodipine Besylate* (Amlodipine Besylate*) 10 Mg Tablet, 10 MG PO DAILY for 30 Days, TAB Prov:CLEMENT JUNG MD 08/02/17 Reported Medications Sitagliptin* (Januvia*) 100 Mg Tablet, 100 MG PO DAILY, #30 TAB 10/12/17 Atorvastatin* (Atorvastatin*) 80 Mg Tablet, 80 MG PO QHS, #30 TAB 07/29/17 Clopidogrel Bisulfate (Clopidogrel) 75 Mg Tablet, 75 MG PO DAILY, #30 TAB 07/29/17 Carvedilol* (Carvedilol*) 25 Mg Tablet, 25 MG PO BID, #60 TAB 07/29/17 Aspirin (Low Dose Aspirin) 81 Mg Tablet.dr, 81 MG PO DAILY, #30 TAB 07/29/17 Famotidine* (Famotidine*) 20 Mg Tablet, 20 MG PO BID, #60 TAB 07/29/17 Lisinopril* (Lisinopril*) 5 Mg Tablet, 5 MG PO DAILY, #30 TAB 07/29/17 Calcium Carbonate/Vitamin D3 ([place]ysco 500+D Tablet) 1 Each Tablet, 1 EACH PO DAILY, TAB 07/29/17 Pregabalin* (Lyrica*) 50 Mg Capsule, 50 MG PO BID, CAP 07/29/17 Allergies Allergies: Coded Allergies: sulfamethoxazole (Verified Allergy, Mild, DIARRHEA,STOMACH PAIN, 10/12/17) trimethoprim (Verified Allergy, Mild, DIARRHEA,STOMACH PAIN, 10/12/17) PMhx/Soc History of Surgery: Yes (PACE MAKER INSERTION) Anesthesia Reaction: No Hx Neurological Disorder: No Hx Respiratory Disorders: No Hx Cardiac Disorders: Yes (HTN) Hx Psychiatric Problems: No Hx Miscellaneous Medical Probl: No Hx Alcohol Use: No Hx Substance Use: No Hx Tobacco Use: No FmHx Family History: diabetes Physical Exam Vitals Vital Signs Date Temp Pulse Resp B/P (MAP) Pulse Ox O2 O2 Flow FiO2 Time Delivery Rate 08/05/18 98.2 77 18 160/88 99 Room Air 22:05 (112) 08/05/18 98.3 76 16 172/82 97 18:39 (112) Physical Exam Const: Mild distress Head: Atraumatic, no bruises, no step-offs, no skull crepitus Eyes: Normal Conjunctiva, PERRL ENT: Normal External Ears, Nose and Mouth. No oral trauma. Neck: Full range of motion. Crepitus, no cervical spinal tenderness, FROM Resp: Clear to auscultation bilaterally, no flail-chest, no rib tenderness Cardio: Regular rate and rhythm, no murmurs Abd: Soft, non tender, non distended. Normal bowel sounds, no bruising Skin: No petechiae or rashes, bruise to left knee cap Back: ++tenderness over sacrum, no bruising; No midline spinal tenderness, no step-offs, no deformities Ext: No cyanosis, or edema. ++tenderness to right hip and trochanter, no ext rotation or shortening, no bruising. +bruising to left knee- no laxity. No complaints, limitations, or injury to BLUE. Motor, sensation, circulation intact to all extremities. 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 Upon arrival pt is tearful and anxious, difficult to examine due to poor cooperation, refusing to stand or walk due to pain. ED COURSE: The patient was stable throughout ED course. I kept the patient informed of diagnostic imaging results throughout the ED course. DIAGNOSTIC IMAGING: No acute fracture identified to the sacrum or coccyx. No fracture in lumbar spine No fracture to right hip Read by radiologist. MEDICATIONS GIVEN: Ibuprofen and Tylenol Patient tolerated medication well with no adverse reactions. Patient reported improvement in pain. MDM: No acute fractures in spine hip or sacrum noted on diagnostic evaluation. Upon reassessment patient is ambulatory, dressing herself, no longer crying, states she has improvement in her pain and is ready to go. Patient asking for her grandson to come pick her up. There is low suspicion for fracture or neurovascular injury. Discussed with patient self-care including use of Tylenol, NSAIDs, heat and ice, range of motion exercises, and need for follow-up with primary care provider as her musculoskeletal injury may require physical therapy or further evaluation due to occult fractures cannot be ruled out at this time. Patient's trauma symptoms have stabilized while in the department and are appropriate for outpatient care and work up. Exam and w/u not consistent w/ severe cranial, spinal, intrathoracic, or i ntraabdominal injury. Patient requesting Tramadol prescription. [place] database reviewed for controlled substance history. There is no indication the patient is abusing prescription medications or is at risk for misuse. History and Physical exam demonstrate the prescribed medication is indicated for the treatment of the patient's condition. DISPOSITION: The patient has been discharge home to follow-up with community physician. Departure Diagnosis: Primary Impression: Fall with no significant injury Condition: Stable Referrals: [facility] Additional Instructions: Thank you very much for allowing us to participate in your care. Your health and safety is our top priority at [facility]. Call your primary care doctor TOMORROW for an appointment during the next 2-4 days and bring all the information and medications prescribed. Have prescriptions filled and follow precisely the directions on the label. If the symptoms get worse and your provider is unavailable, return to the [facility] immediately. NATALIE VARGAS NP Aug 05, 2018 20:22
[2018-08-05] MEDS ORDERED: ACETAMINOPHEN 500 MG TAB PO STA (20:27)
[2018-08-05] MEDS ORDERED: IBUPROFEN 800 MG TAB PO ONE (20:30)
[2018-08-05] MEDS ORDERED: morphine 10 MG INJ IM ONE (20:30)
[2018-08-05] MEDS ORDERED: ACET500C5 PO (21:53)
[2018-08-05 22:05] VITALS: BP 160/88; PULSE 77; RESP 18
[2018-08-05] MEDS ORDERED: TRAM50TA2 PO (22:31)
== END 2018-08-05 22:38 | disposition home or self-care (01) ==
LOC: FTE 18:35
DX: M54.5 Low back pain (principal); M25.551 Pain in right hip; I10 Essential (primary) hypertension; E11.9 Type 2 diabetes mellitus without complications; Z79.4 Long term (current) use of insulin; Z79.82 Long term (current) use of aspirin; Z95.0 Presence of cardiac pacemaker
CPT/HCPCS: 72100; 72220; 73510